=== PATIENT | female | born 1950 | race Caucasian/White ===

== ENCOUNTER → 2016-07-09 | Outpatient (CLI) | payer OTHER ==
[2016-07-09 08:17] LABS: Basophils # (A) 0.1 k/uL (0-0.2); Basophils % (A) 1 %; CH 30.6; CHCM 32.9; Eosinophils # (A) 0.1 k/uL (0-0.7); Eosinophils % (A) 2 %; HCT 42.8 % (34.0-46.0); HDW 2.23; HGB 13.8 gm/dL (11.4-16.0); Luc # (Auto) 0.12; Luc % (Auto) 2; Lymphocytes # (A) 1.4 k/uL (1.0-4.8); Lymphocytes % (A) 21 %; MCH 30.1 pg (25.0-35.0); MCHC 32.2 g/dL (31.0-37.0); MCV 93.4 fL (80.0-100.0); Mean Platelet Volume 7.7; Monocytes # (A) 0.3 k/uL (0-1.0); Monocytes % (A) 5 %; Neutrophils # (A) 4.6 k/uL (1.3-7.7); Neutrophils % (A) 69 %; RBC 4.58 m/uL (3.80-5.40); RDW 12.3 % (11.5-15.5); WBC 6.7 k/uL (3.8-10.6); WBC (Perox) 6.53
[2016-07-09 08:36] LABS: ALT 30 U/L (9-52); AST 24 U/L (14-36); Alkaline Phosphatase 41 U/L (38-126); Anion Gap 12 mmol/L; Blood Urea Nitrogen 15 mg/dL (7-17); Carbon Dioxide 28 mmol/L (22-30); Chloride 102 mmol/L (98-107); Cholesterol 159 mg/dL (<200); Glucose 91 mg/dL (74-99); HDL Cholesterol 63 mg/dL (40-60); Non-African American GFR(MDRD) 53 (>60 ml/min/1.73 sqM); Potassium 4.9 mmol/L (3.5-5.1); Sodium 142 mmol/L (137-145); Total Bilirubin 0.6 mg/dL (0.2-1.3); Total Protein 7.2 g/dL (6.3-8.2); Triglycerides 94 mg/dL (<150)
[2016-07-09 09:24] LABS: Hemoglobin A1C 5.5 % (4.2-6.1)
== END | disposition home or self-care (01) ==
LOC: LABWHC1 07:45
PROVIDERS: ATTEND Internal Medicine Geriatric Medicine
DX: Z00.00 Encounter for general adult medical examination without abnormal findings (principal)
CPT/HCPCS: 36415; 80053; 80061; 82306; 83036; 84439; 84443; 85025

== ENCOUNTER → 2016-08-01 | Outpatient (CLI) | payer OTHER ==
--- NOTE | 2016-08-02 07:51 | MM ---
Reason for exam: screening (asymptomatic). Last mammogram was performed 1 year and 2 months ago. History: Patient is postmenopausal. Benign excisional biopsy of the right breast, 1969. Taking estrogen for 4 years 7 months beginning at age 52. Physical Findings: A clinical breast exam by your physician is recommended on an annual basis and results should be correlated with mammographic findings. MG Screening Mammo w CAD Bilateral CC and MLO view(s) were taken. Prior study comparison: June 06, 2015, bilateral MG screening mammo w CAD. April 08, 2014, bilateral MG screening mammo w CAD. The breast tissue is heterogeneously dense. This may lower the sensitivity of mammography. No significant changes when compared with prior studies. ASSESSMENT: Benign, BI-RAD 2 RECOMMENDATION: Routine screening mammogram of both breasts in 1 year.
== END | disposition home or self-care (01) ==
LOC: RADMAMWWP 10:14
PROVIDERS: ATTEND Internal Medicine Geriatric Medicine
DX: Z12.31 Encounter for screening mammogram for malignant neoplasm of breast (principal)

== ENCOUNTER → 2017-02-12 | Outpatient (CLI) | payer OTHER ==
--- NOTE | 2017-02-12 15:22 | US ---
EXAMINATION TYPE: US carotid duplex BILAT DATE OF EXAM: 02/12/2017 COMPARISON: NONE CLINICAL HISTORY: I34.0 Nonrheumatic mitral regurgitation, I65.23 Oc. EXAM MEASUREMENTS: RIGHT: Peak Systolic Velocity (PSV) cm/sec ----- Right CCA: 56.3 ----- Right ICA: 101.8 ----- Right ECA: 90.4 ICA/CCA ratio: 1.8 RIGHT: End Diastole cm/sec ----- Right CCA: 17.2 ----- Right ICA: 26.0 ----- Right ECA: 7.1 LEFT: Peak Systolic Velocity (PSV) cm/sec ----- Left CCA: 57.9 ----- Left ICA: 90.4 ----- Left ECA: 70.2 ICA/CCA ratio: 1.6 LEFT: End Diastole cm/sec ----- Left CCA: 13.9 ----- Left ICA: 29.8 ----- Left ECA: 7.1 VERTEBRALS (direction of flow): Right Vertebral: Antegrade Left Vertebral: Antegrade Mild atherosclerotic changes at bilateral bulbs Normal (no stenosis)=ICA PSV < 125 cm/s: ratio < 2.0: ICA EDV<40 cm/s. IMPRESSION: 1. Bilateral atherosclerotic changes with no significant hemodynamic stenosis.
--- NOTE | 2017-02-13 11:11 | ECHOF ---
Referral Reason:I34.0 Nonrheumatic mitral regurgitation, I65.23 Oc MEASUREMENTS -------- HEIGHT: 167.6 cm WEIGHT: 49.9 kg BP: 161/71 IVSd: 1.0 cm (0.6 - 1.1) LVIDd: 3.3 cm (3.9 - 5.3) LVPWd: 1.2 cm (0.6 - 1.1) IVSs: 1.4 cm LVIDs: 1.6 cm LVPWs: 1.4 cm Ao Diam: 2.6 cm (2.0 - 3.7) AV Cusp: 1.8 cm (1.5 - 2.6) LA Diam: 2.5 cm (2.7 - 3.8) MV EXCURSION: 20.868 mm (> 18.000) MV EF SLOPE: 116 mm/s (70 - 150) EPSS: 0.2 cm MV E Gwyn: 1.20 m/s MV DecT: 218 ms MV A Gwyn: 0.71 m/s MV E/A Ratio: 1.69 RAP: 5.00 mmHg RVSP: 31.05 mmHg FINDINGS -------- Sinus rhythm. This was a technically good study. There is borderline concentric left ventricular hypertrophy. Overall left ventricular systolic function is normal with, an EF between 55 - 60 %. The right ventricle is normal in size and function. The left atrium is normal in size. The right atrium is normal in size. The aortic valve is trileaflet, and appears structurally normal. No aortic stenosis or regurgitation. The mitral valve leaflets are mildly thickened. There is trace mitral regurgitation. Mild tricuspid regurgitation present. The right ventricular systolic pressure, as measured by Doppler, is 31.05mmHg. Pulmonic valve appears structurally normal. The aortic root size is normal. The pericardium is normal. CONCLUSIONS -------- 1. Sinus rhythm. 2. There is trace mitral regurgitation. 3. Mild tricuspid regurgitation present. 4. The right ventricular systolic pressure, as measured by Doppler, is 31.05mmHg. 5. Pulmonic valve appears structurally normal. 6. The aortic root size is normal. 7. The pericardium is normal. 8. This was a technically good study. 9. There is borderline concentric left ventricular hypertrophy. 10. Overall left ventricular systolic function is normal with, an EF between 55 - 60 %. 11. The right ventricle is normal in size and function. 12. The left atrium is normal in size. 13. The right atrium is normal in size. 14. The aortic valve is trileaflet, and appears structurally normal. No aortic stenosis or regurgitation. 15. The mitral valve leaflets are mildly thickened. AGED OR DISABLED CARER: Zonia Lewis RDCS
== END | disposition home or self-care (01) ==
LOC: RADECHMAIN 14:09
PROVIDERS: ATTEND Internal Medicine Geriatric Medicine
DX: I65.23 Occlusion and stenosis of bilateral carotid arteries (principal); I08.1 Rheumatic disorders of both mitral and tricuspid valves
CPT/HCPCS: 93306; 93880

== ENCOUNTER → 2017-07-31 | Outpatient (CLI) | payer MEDICARE, OTHER ==
[2017-07-31 08:43] LABS: Basophils # (A) 0.1 k/uL (0-0.2); Basophils % (A) 1 %; Eosinophils # (A) 0.2 k/uL (0-0.7); Eosinophils % (A) 3 %; HCT 43.1 % (34.0-46.0); HGB 13.8 gm/dL (11.4-16.0); Lymphocytes # (A) 1.7 k/uL (1.0-4.8); Lymphocytes % (A) 25 %; MCH 30.3 pg (25.0-35.0); MCV 94.6 fL (80.0-100.0); Monocytes # (A) 0.3 k/uL (0-1.0); Monocytes % (A) 5 %; Neutrophils # (A) 4.3 k/uL (1.3-7.7); Neutrophils % (A) 64 %; Platelet Count 256 k/uL (150-450); RBC 4.55 m/uL (3.80-5.40); WBC 6.7 k/uL (3.8-10.6)
[2017-07-31 09:14] LABS: Albumin 4.2 g/dL (3.5-5.0); Potassium 4.9 mmol/L (3.5-5.1); Total Bilirubin 0.6 mg/dL (0.2-1.3); Total Protein 6.9 g/dL (6.3-8.2)
[2017-07-31 09:29] LABS: T4, Free (Free Thyroxine) 0.99 ng/dL (0.78-2.19)
[2017-07-31 18:12] LABS: Hemoglobin A1C 5.8 % (4.0-6.0)
== END | disposition home or self-care (01) ==
LOC: LABWHC1 08:11
PROVIDERS: ATTEND Internal Medicine Geriatric Medicine
DX: I10 Essential (primary) hypertension (principal); E78.00 Pure hypercholesterolemia, unspecified; R73.09 Other abnormal glucose
CPT/HCPCS: 36415; 80053; 80061; 83036; 84439; 84443; 85025

== ENCOUNTER → 2017-08-13 | Outpatient (CLI) | payer MEDICARE, OTHER ==
--- NOTE | 2017-08-14 10:50 | US ---
EXAMINATION TYPE: US kidneys/renal and bladder DATE OF EXAM: 08/13/2017 COMPARISON: NONE CLINICAL HISTORY: 67-year-old female elevated C reactive protein, R79.82. Hx of renal cysts. Abnorma l labs Technique: Multiple sonographic images of the kidneys and bladder are obtained. FINDINGS: Right Kidney: 8.8 x 4.5 x 2.8 cm without hydronephrosis. There is a 1.5 cm lower pole cyst. Low-leve l internal echoes are felt to be artifactual. Left Kidney: 9.5 x 3.7 x 4.7 cm without hydronephrosis. Some bowel gas shadowing limiting assessment of the upper pole. Urine distended bladder shows no gross abnormality. Bilateral Jets not seen IMPRESSION: 1. No hydronephrosis. 2. Benign 1.5 cm right lower pole renal cyst. 3. Neither ureteral jet is seen during the course of the exam. This may reflect underlying chronic ki dney disease.
== END | disposition home or self-care (01) ==
LOC: RADUSWWP 15:40
PROVIDERS: ATTEND Internal Medicine Geriatric Medicine
DX: N28.1 Cyst of kidney, acquired (principal)
CPT/HCPCS: 76770

== ENCOUNTER → 2017-08-27 | Outpatient (CLI) | payer MEDICARE, OTHER ==
--- NOTE | 2017-08-28 09:30 | MM ---
Reason for exam: screening (asymptomatic). Last mammogram was performed 1 year and 1 month ago. History: Patient is postmenopausal. Benign excisional biopsy of the right breast, 1969. Took estrogen for 4 years 7 months beginning at age 52. Physical Findings: A clinical breast exam by your physician is recommended on an annual basis and results should be correlated with mammographic findings. MG Screening Mammo w CAD Bilateral CC and MLO view(s) were taken. Prior study comparison: August 01, 2016, bilateral MG screening mammo w CAD. June 06, 2015, bilateral MG screening mammo w CAD. The breast tissue is extremely dense which could obscure a lesion on mammography. No significant changes when compared with prior studies. ASSESSMENT: Benign, BI-RAD 2 RECOMMENDATION: Routine screening mammogram of both breasts in 1 year.
== END | disposition home or self-care (01) ==
LOC: RADMAMWWP 08:39
PROVIDERS: ATTEND Internal Medicine Geriatric Medicine
DX: Z12.31 Encounter for screening mammogram for malignant neoplasm of breast (principal)
CPT/HCPCS: 77067

== ENCOUNTER → 2018-01-14 | Outpatient (CLI) | payer MEDICARE, OTHER ==
[2018-01-14 08:50] LABS: Basophils # (A) 0.1 k/uL (0-0.2); Basophils % (A) 1 %; Eosinophils # (A) 0.1 k/uL (0-0.7); Eosinophils % (A) 2 %; HCT 39.9 % (34.0-46.0); HGB 13.4 gm/dL (11.4-16.0); Lymphocytes # (A) 1.4 k/uL (1.0-4.8); Lymphocytes % (A) 27 %; MCH 30.2 pg (25.0-35.0); MCHC 33.7 g/dL (31.0-37.0); MCV 89.8 fL (80.0-100.0); Mean Platelet Volume 6.9; Monocytes # (A) 0.3 k/uL (0-1.0); Monocytes % (A) 6 %; Neutrophils # (A) 3.1 k/uL (1.3-7.7); Neutrophils % (A) 61 %; Platelet Count 222 k/uL (150-450); RBC 4.45 m/uL (3.80-5.40); RDW 12.3 % (11.5-15.5)
[2018-01-14 09:12] LABS: T4, Free (Free Thyroxine) 1.08 ng/dL (0.78-2.19)
[2018-01-14 16:03] LABS: Iron Saturation 37.04 (12.00-45.00)
[2018-01-14 16:12] LABS: Vitamin D 25 Hydroxy 35.2 ng/mL (30.0-100.0)
[2018-01-14 18:46] LABS: Hemoglobin A1C 5.7 % (4.0-6.0)
== END | disposition home or self-care (01) ==
LOC: LABWHC1 08:18
PROVIDERS: ATTEND Internal Medicine Geriatric Medicine
DX: E55.9 Vitamin D deficiency, unspecified (principal); D50.9 Iron deficiency anemia, unspecified; E78.00 Pure hypercholesterolemia, unspecified; R73.09 Other abnormal glucose; R00.1 Bradycardia, unspecified
CPT/HCPCS: 36415; 80061; 82306; 83036; 83540; 83550; 84439; 84443; 85025

== ENCOUNTER → 2018-01-21 | Outpatient (CLI) | payer MEDICARE, OTHER ==
[2018-01-21 12:41] LABS: Albumin 4.4 g/dL (3.5-5.0); Calcium 10.2 mg/dL (8.4-10.2); Potassium 4.3 mmol/L (3.5-5.1); Total Bilirubin 0.5 mg/dL (0.2-1.3); Total Protein 6.9 g/dL (6.3-8.2)
== END | disposition home or self-care (01) ==
LOC: LABWHC1 11:21
PROVIDERS: ATTEND Nurse Practitioner Family
DX: I10 Essential (primary) hypertension (principal)
CPT/HCPCS: 36415; 80053

== ENCOUNTER → 2018-07-20 | Outpatient (CLI) | payer MEDICARE, OTHER ==
--- NOTE | 2018-07-20 14:34 | US ---
EXAMINATION TYPE: US abdomen complete DATE OF EXAM: 07/20/2018 COMPARISON: US 2017, CT 2011 CLINICAL HISTORY: N28.1 Cyst of kidney, acquired. Follow up renal cyst, history of cholecystectomy, p atient not NPO EXAM MEASUREMENTS: Liver Length: 11.9 cm Gallbladder Wall: surgically absent CBD: 0.4 cm Spleen: 7.6 cm Right Kidney: 9.1 x 2.8 x 3.9 cm Left Kidney: 9.6 x 4.7 x 4.0 cm Pancreas: wnl Liver: 0.6 x 0.6 x 0.5cm hyperechoic lesion right lobe Gallbladder: surgically absent Evidence for sonographic Sewell's sign: no CBD: wnl Spleen: wnl Right Kidney: 1.5 x 1.2 x 1.5cm cyst inferior pole Left Kidney: wnl Upper IVC: wnl Abd Aorta: atherosclerotic changes The liver is homogenous. The intrahepatic portion of the IVC and proximal abdominal aorta are within normal limits. Common bile duct is unremarkable. The visualized portions of the pancreas are homoge nous. The spleen is unremarkable. Kidneys are symmetric and free of hydronephrosis. No renal lesio ns are seen. IMPRESSION: 1. No distinct abnormality appreciated.
== END | disposition home or self-care (01) ==
LOC: RADUSWWP 12:41
PROVIDERS: ATTEND Internal Medicine Geriatric Medicine
DX: N28.1 Cyst of kidney, acquired (principal)
CPT/HCPCS: 76700

== ENCOUNTER → 2018-09-01 | Outpatient (CLI) | payer MEDICARE, OTHER ==
--- NOTE | 2018-09-01 14:59 | XR ---
EXAMINATION TYPE: XR chest 2V DATE OF EXAM: 09/01/2018 COMPARISON: NONE HISTORY: Chest pain TECHNIQUE: Frontal and lateral views of the chest are obtained. FINDINGS: There is no focal air space opacity, pleural effusion, or pneumothorax seen. The cardiac silhouette size is within normal limits. The osseous structures are intact. Prominent lung volumes are suggestive of underlying COPD. Surgical clips are present in the right upper quadrant. There is m ild spinal curvature. Biapical pleural thickening is noted. The aorta is dense. IMPRESSION: No acute cardiopulmonary process.
== END | disposition home or self-care (01) ==
LOC: RADXRMAIN 13:55
PROVIDERS: ATTEND Nurse Practitioner Family
DX: R07.9 Chest pain, unspecified (principal)
CPT/HCPCS: 71046

== ENCOUNTER → 2018-09-02 | Outpatient (CLI) | payer MEDICARE, OTHER ==
--- NOTE | 2018-09-02 15:00 | MM ---
Reason for exam: screening (asymptomatic). Last mammogram was performed 1 year ago. History: Patient is postmenopausal. Benign excisional biopsy of the right breast, 1969. Took estrogen for 4 years 7 months beginning at age 52. Physical Findings: A clinical breast exam by your physician is recommended on an annual basis and results should be correlated with mammographic findings. MG Screening Mammo w CAD Bilateral CC and MLO view(s) were taken. Prior study comparison: August 27, 2017, bilateral MG screening mammo w CAD. August 01, 2016, bilateral MG screening mammo w CAD. The breast tissue is extremely dense which could obscure a lesion on mammography. There are benign appearing round vascular calcifications bilaterally. There is no discrete abnormality. ASSESSMENT: Benign, BI-RAD 2 RECOMMENDATION: Routine screening mammogram of both breasts in 1 year.
== END | disposition home or self-care (01) ==
LOC: RADMAMWWP 10:56
PROVIDERS: ATTEND Internal Medicine Geriatric Medicine
DX: Z12.31 Encounter for screening mammogram for malignant neoplasm of breast (principal)
CPT/HCPCS: 77067

== ENCOUNTER → 2018-09-15 | Outpatient (CLI) | payer MEDICARE, OTHER | END | disposition home or self-care (01) | LOC: RADNMMAIN 08:48 | PROVIDERS: ATTEND Internal Medicine Geriatric Medicine | DX: Z53.9 Procedure and treatment not carried out, unspecified reason (principal) ==

== ENCOUNTER → 2018-09-28 | Outpatient (CLI) | payer MEDICARE, OTHER ==
--- NOTE | 2018-09-28 13:28 | ECHOS ---
STRESS ECHOCARDIOGRAM DATE OF SERVICE: 09/28/2018 INDICATIONS: Chest discomfort. MEDICATIONS: BASELINE HEART RATE: 81 BASELINE BLOOD PRESSURE: 159/61 MAXIMUM HEART RATE: 148 MAXIMUM BLOOD PRESSURE: 214/78 85% MPHR: 131 100% MPHR: 154 METS: 6.6 MAXIMUM STAGE REACHED: II TOTAL EXERCISE TIME: 4 minutes CLINICAL INFORMATION: STRESS DATA: Pretesting physical examination showed a heart rate of 81, pressure is 159/61 mmHg. Baseline EKG showed sinus mechanism. The patient exercised on the treadmill according to Mickey protocol for a total of 4 minutes and achieved 6.6 METs. The max heart rate was 148, which is about 96% of maximum predicted heart rate. Maximum blood pressure was was 214/78 mmHg. Clinically the patient did not have any symptoms of chest pain or discomfort and the EKG did not show any significant ST or T- wave abnormalities concerning for ischemia. ECHOCARDIOGRAM IMAGES: On echocardiogram images from parasternal long axis view, parasternal short axis view, apical 4-chamber and apical 2 chamber view were obtained as the baseline images, at the peak of the heart rate as well as on recovery and the echocardiogram images showed good augmentation in the left ventricular systolic function without any evidence of wall motion abnormalities concerning for ischemia. CONCLUSION: 1. Average exercise tolerance. 2. Normal EKG in response to exercise. 3. Normal echocardiogram in response to exercise. 4. Essentially normal stress echocardiogram for the patient. MMODL / IJN: [id number] /
== END | disposition home or self-care (01) ==
LOC: RADNMMAIN 08:40
PROVIDERS: ATTEND Internal Medicine Geriatric Medicine
DX: R07.9 Chest pain, unspecified (principal)
CPT/HCPCS: 93351

== ENCOUNTER → 2019-01-22 | Outpatient (CLI) | payer MEDICARE, OTHER ==
[2019-01-22 10:09] LABS: Basophils # (A) 0.1 k/uL (0-0.2); Basophils % (A) 1 %; Eosinophils # (A) 0.1 k/uL (0-0.7); Eosinophils % (A) 1 %; HCT 42.6 % (34.0-46.0); HGB 13.7 gm/dL (11.4-16.0); Lymphocytes # (A) 1.6 k/uL (1.0-4.8); Lymphocytes % (A) 21 %; MCH 30.2 pg (25.0-35.0); MCHC 32.1 g/dL (31.0-37.0); MCV 94.1 fL (80.0-100.0); Mean Platelet Volume 6.8; Monocytes # (A) 0.4 k/uL (0-1.0); Monocytes % (A) 5 %; Neutrophils # (A) 5.1 k/uL (1.3-7.7); Neutrophils % (A) 69 %; Platelet Count 257 k/uL (150-450); RBC 4.53 m/uL (3.80-5.40); RDW 12.2 % (11.5-15.5); WBC 7.5 k/uL (3.8-10.6)
[2019-01-22 10:27] LABS: Albumin 4.5 g/dL (3.5-5.0); Calcium 10.2 mg/dL (8.4-10.2); Potassium 5.6 mmol/L (3.5-5.1); Total Bilirubin 0.8 mg/dL (0.2-1.3); Total Protein 7.4 g/dL (6.3-8.2)
--- NOTE | 2019-01-22 11:11 | BD ---
EXAMINATION TYPE: Axial Bone Density DATE OF EXAM: 01/22/2019 COMPARISON: 09/11/2001 CLINICAL HISTORY: M 81.0 Height: 64.5 IN Weight: 110 LBS FRAX RISK QUESTIONS: RISK FACTORS HISTORY OF: History of Wrist Fracture: YES LEFT When: AGE 38 Family History of Osteoporosis: YES MOTHER Active: YES Postmenopausal woman: YES TOTAL HYST AGE 52 Take estrogen and/or progesterone medications: NOT NOW How long: AGE 50-54 MEDICATIONS: Additional Medications: BABY ASPIRIN, MULTI VIT, BLOOD PRESSURE, CHOLESTEROL, EXAM MEASUREMENTS: Bone mineral densitometry was performed using the [employer] System. Bone mineral density as measured about the Lumbar spine is: ----- L1-L4(G/cm2): 1.132 T Score Values are as follows: ----- L2: -0.6 ----- L3: 0.5 ----- L4: -0.6 ----- L1-L4: -0.4 Bone mineral density has: Decreased -8.6% since study of: 09/11/2001 Bone mineral density about the R hip (g/cm2): 0.657 Bone mineral density about the L hip (g/cm2): 0.730 T Score values are as follows: -----R Neck: -2.7 -----L Neck: -2.2 -----R Total: -2.9 -----L Total: -2.4 Bone mineral density has: Decreased -24.0% since study of: 09/11/2001 IMPRESSION: Osteoporosis (T Score less than -2.5). There is increased fracture risk and therapy is usually indicated based on age. Re-Screen 1-2 years. NOTE: T-SCORE=SD OF THE YOUNG ADULT MEAN.
[2019-01-22 18:25] LABS: Iron Saturation 26.95 (12.00-45.00)
== END | disposition home or self-care (01) ==
LOC: RADBDWWP 09:34
PROVIDERS: ATTEND Internal Medicine Geriatric Medicine
DX: M81.0 Age-related osteoporosis without current pathological fracture (principal); D50.9 Iron deficiency anemia, unspecified; E78.2 Mixed hyperlipidemia; Z00.00 Encounter for general adult medical examination without abnormal findings
CPT/HCPCS: 77080; 80053; 80061; 83540; 83550; 85025

== ENCOUNTER 2019-05-13 19:02 | Emergency (ER) | payer MEDICARE, OTHER ==
[2019-05-13 19:16] VITALS: RESP 18; TEMP 97.4
[2019-05-13] MEDS ORDERED: MECLIZINE 12.5 MG TAB PO STA (19:38)
[2019-05-13] MEDS ORDERED: ONDANSETRON 4 MG/2 ML VIAL IVP STA (19:38)
[2019-05-13] MEDS ORDERED: SODIUM CHLORIDE 0.9% 1,000 ML IV STA (19:38)
[2019-05-13 19:46] LABS: Basophils % (A) 0 %; Eosinophils # (A) 0.1 k/uL (0-0.7); Eosinophils % (A) 1 %; HGB 14.7 gm/dL (11.4-16.0); Lymphocytes # (A) 1.5 k/uL (1.0-4.8); Lymphocytes % (A) 12 %; MCH 31.5 pg (25.0-35.0); MCHC 34.2 g/dL (31.0-37.0); Mean Platelet Volume 6.2; Monocytes # (A) 0.6 k/uL (0-1.0); Monocytes % (A) 5 %; Neutrophils # (A) 10.2 k/uL (1.3-7.7); Neutrophils % (A) 81 %; Platelet Count 230 k/uL (150-450); RBC 4.68 m/uL (3.80-5.40); RDW 11.8 % (11.5-15.5); WBC 12.6 k/uL (3.8-10.6)
[2019-05-13 20:00] LABS: Albumin 5.1 g/dL (3.5-5.0); Total Protein 8.2 g/dL (6.3-8.2)
[2019-05-13 20:01] LABS: Calcium 10.1 mg/dL (8.4-10.2); Magnesium 1.8 mg/dL (1.6-2.3); Potassium 3.9 mmol/L (3.5-5.1); Total Bilirubin 0.6 mg/dL (0.2-1.3)
[2019-05-13] MEDS ORDERED: LORazepam 2 MG/ML INJ IV STA (20:01)
[2019-05-13 20:06] LABS: INR 0.9 (<1.2); Partial Thromboplastin Time 23.1 sec (22.0-30.0); Prothrombin Time 9.8 sec (9.0-12.0)
--- NOTE | 2019-05-13 20:14 | XR ---
EXAMINATION TYPE: XR chest 2V DATE OF EXAM: 05/13/2019 COMPARISON: 09/01/2018 HISTORY: Chest pain TECHNIQUE: Frontal and lateral views of the chest are obtained. FINDINGS: Heart and mediastinum are normal. Lungs are clear of infiltrate. There is no pleural effus ion. There are chest leads. Bony thorax is intact. IMPRESSION: Normal chest. No change.
--- NOTE | 2019-05-13 20:18 | ED ---
General Adult HPI - General Chief complaint: Recheck/Abnormal Lab/Rx Stated complaint: hypertension, dizzy Time Seen by Provider: 05/13/19 19:20 Source: patient Mode of arrival: wheelchair Limitations: no limitations - History of Present Illness Initial comments: 68 old female patient presents to the emergency department today with multiple complaints. Patient states his been feeling unwell today. States that, blood pressure was elevated in the 180s systolic over the 60s diastolic. Patient states with this she has been having dizziness and nausea. Patient states she is dizzy even at rest. States that the room is spinning and she feels lighthe aded. Patient states that she did see her primary care physician today, her blood pressure was improved after office. States she continued to feel unwell so she presented here for further evaluation. Patient states she has been feeling a fluttering in her chest. Denies any chest pain or abdominal pain. States she has been feeling nauseated and having dry heaves. Patient is also reporting significant stress and anxiety. Did take a Xanax earlier today without much relief. She denies numbness, tingling, weakness to her extremities. Denies headache, blurred vision, or double vision. Denies any head injury recently. Patient denies any recent rash, fever, chills, diarrhea, constipation, back pain, hematuria, dysuria, urinary urgency, urinary frequency, or any other complaints. - Related Data Previous Rx's Medication Instructions Recorded Cephalexin [Keflex] 500 mg PO BID #14 cap 05/13/19 Allergies Allergy/AdvReac Type Severity Reaction Status Date / Time levofloxacin [From Levaquin] Allergy Nausea & Verified 05/13/19 19:16 Vomiting Review of Systems ROS Statement: Those systems with pertinent positive or pertinent negative responses have been documented in the HPI. ROS Other: All systems not noted in ROS Statement are negative. Past Medical History Past Medical History: Hypertension History of Any Multi-Drug Resistant Organisms: None Reported Past Surgical History: Cholecystectomy, Hysterectomy Additional Past Surgical History / Comment(s): cyst removed from right breast at age 18 Past Psychological History: Anxiety Smoking Status: Never smoker Past Alcohol Use History: None Reported Past Drug Use History: None Reported General Exam Limitations: no limitations General appearance: alert, in no apparent distress, other (This is a well- developed, well-nourished adult female patient in no acute distress. Vital signs upon presentation are temperature 97.4F, pulse 75, respirations 18, blood pressure 160/90, pulse ox 96% on room air.) Eye exam: Present: normal appearance, PERRL, EOMI. Absent: scleral icterus, conjunctival injection, periorbital swelling ENT exam: Present: normal exam, normal oropharynx, mucous membranes moist, TM's normal bilaterally Respiratory exam: Present: normal lung sounds bilaterally. Absent: respiratory distress, wheezes, rales, rhonchi, stridor Cardiovascular Exam: Present: regular rate, normal rhythm, normal heart sounds. Absent: systolic murmur, diastolic murmur, rubs, gallop, clicks GI/Abdominal exam: Present: soft, normal bowel sounds. Absent: distended, tend erness, guarding, rebound, rigid Neurological exam: Present: alert, oriented X3, CN II-XII intact, other (Strength in all 4 extremities is 5/5.) Psychiatric exam: Present: normal affect, normal mood Skin exam: Present: warm, dry, intact, normal color. Absent: rash Course Vital Signs 05/13/19 05/13/19 05/13/19 19:11 20:14 21:00 Temperature 97.4 F L Pulse Rate 75 72 69 Respiratory 18 18 18 Rate Blood Pressure 160/90 175/73 140/85 O2 Sat by Pulse 96 99 98 Oximetry EKG Findings - EKG Comments: EKG Findings:: EKG obtained at 1940 shows normal sinus rhythm with a ventricular rate of 71, IA interval 184, QRS duration 76, QT 386, QTC 419. No evidence of ST elevation or depression. Medical Decision Making - Medical Decision Making 68 year-old female patient presents to the emergency department today for evaluation of dizziness, anxiety, and elevated blood pressure. Physical examination is unremarkable. She is neurologically intact with no focal deficits. Labs revealed urinary tract infection but no other abnormalities. Ch est x-ray and EKG unremarkable. Blood pressures were satisfactory and department. She was given IV dose of Rocephin initially discharged with Keflex. Patient does report improvement of symptoms. She is able to ambulate without difficulty. She'll be discharged to follow up with her primary care physician for recheck in 1-2 days. Return parameters were discussed in detail. She verbalizes understanding and agrees with this plan. - Lab Data Result diagrams: 05/13/19 19:28 05/13/19 19:28 Lab Results 05/13/19 05/13/19 05/13/19 Range/Units 19:28 19:28 19:28 WBC 12.6 H (3.8-10.6) k/uL RBC 4.68 (3.80-5.40) m/uL Hgb 14.7 (11.4-16.0) gm/dL Hct 43.0 (34.0-46.0) % MCV 92.0 (80.0-100.0) fL MCH 31.5 (25.0-35.0) pg MCHC 34.2 (31.0-37.0) g/dL RDW 11.8 (11.5-15.5) % Plt Count 230 (150-450) k/uL Neutrophils % 81 % Lymphocytes % 12 % Monocytes % 5 % Eosinophils % 1 % Basophils % 0 % Neutrophils # 10.2 H (1.3-7.7) k/uL Lymphocytes # 1.5 (1.0-4.8) k/uL Monocytes # 0.6 (0-1.0) k/uL Eosinophils # 0.1 (0-0.7) k/uL Basophils # 0.0 (0-0.2) k/uL PT 9.8 (9.0-12.0) sec INR 0.9 (<1.2) APTT 23.1 (22.0-30.0) sec Sodium 137 (137-145) mmol/L Potassium 3.9 (3.5-5.1) mmol/L Chloride 98 (98-107) mmol/L Carbon Dioxide 27 (22-30) mmol/L Anion Gap 12 mmol/L BUN 16 (7-17) mg/dL Creatinine 1.15 H (0.52-1.04) mg/dL Est GFR (CKD-EPI)AfAm 57 (>60 ml/min/1.73 sqM) Est GFR (CKD-EPI)NonAf 50 (>60 ml/min/1.73 sqM) Glucose 142 H (74-99) mg/dL Calcium 10.1 (8.4-10.2) mg/dL Magnesium 1.8 (1.6-2.3) mg/dL Total Bilirubin 0.6 (0.2-1.3) mg/dL AST 26 (14-36) U/L ALT 21 (9-52) U/L Alkaline Phosphatase 47 (38-126) U/L Troponin I (0.000-0.034) ng/mL Total Protein 8.2 (6.3-8.2) g/dL Albumin 5.1 H (3.5-5.0) g/dL Urine Color Urine Appearance (Clear) Urine pH (5.0-8.0) Ur Specific Guy (1.001-1.035) Urine Protein (Negative) Urine Glucose (UA) (Negative) Urine Ketones (Negative) Urine Blood (Negative) Urine Nitrite (Negative) Urine Bilirubin (Negative) Urine Urobilinogen (<2.0) mg/dL Ur Leukocyte Esterase (Negative) Urine RBC (0-5) /hpf Urine WBC (0-5) /hpf Ur Squamous Epith Cells (0-4) /hpf Urine Bacteria (None) /hpf Urine Mucus (None) /hpf 05/13/19 05/13/19 Range/Units 19:28 21:03 WBC (3.8-10.6) k/uL RBC (3.80-5.40) m/uL Hgb (11.4-16.0) gm/dL Hct (34.0-46.0) % MCV (80.0-100.0) fL MCH (25.0-35.0) pg MCHC (31.0-37.0) g/dL RDW (11.5-15.5) % Plt Count (150-450) k/uL Neutrophils % % Lymphocytes % % Monocytes % % Eosinophils % % Basophils % % Neutrophils # (1.3-7.7) k/uL Lymphocytes # (1.0-4.8) k/uL Monocytes # (0-1.0) k/uL Eosinophils # (0-0.7) k/uL Basophils # (0-0.2) k/uL PT (9.0-12.0) sec INR (<1.2) APTT (22.0-30.0) sec Sodium (137-145) mmol/L Potassium (3.5-5.1) mmol/L Chloride (98-107) mmol/L Carbon Dioxide (22-30) mmol/L Anion Gap mmol/L BUN (7-17) mg/dL Creatinine (0.52-1.04) mg/dL Est GFR (CKD-EPI)AfAm (>60 ml/min/1.73 sqM) Est GFR (CKD-EPI)NonAf (>60 ml/min/1.73 sqM) Glucose (74-99) mg/dL Calcium (8.4-10.2) mg/dL Magnesium (1.6-2.3) mg/dL Total Bilirubin (0.2-1.3) mg/dL AST (14-36) U/L ALT (9-52) U/L Alkaline Phosphatase (38-126) U/L Troponin I <0.012 (0.000-0.034) ng/mL Total Protein (6.3-8.2) g/dL Albumin (3.5-5.0) g/dL Urine Color Light Yellow Urine Appearance Clear (Clear) Urine pH 6.0 (5.0-8.0) Ur Specific Guy 1.015 (1.001-1.035) Urine Protein Negative (Negative) Urine Glucose (UA) Trace H (Negative) Urine Ketones Negative (Negative) Urine Blood Negative (Negative) Urine Nitrite Positive H (Negative) Urine Bilirubin Negative (Negative) Urine Urobilinogen <2.0 (<2.0) mg/dL Ur Leukocyte Esterase Moderate H (Negative) Urine RBC <1 (0-5) /hpf Urine WBC 47 H (0-5) /hpf Ur Squamous Epith Cells <1 (0-4) /hpf Urine Bacteria Rare H (None) /hpf Urine Mucus Rare H (None) /hpf - Radiology Data Radiology results: report reviewed, image reviewed Two-view x-ray of the chest is obtained. Report was reviewed in its entirety. Impression by Dr. Lynn shows normal chest. No change Disposition Clinical Impression: Urinary tract infection, Hypertension, Dizziness Disposition: HOME SELF-CARE Condition: Good Instructions (If sedation given, give patient instructions): Urinary Tract Infection in Women (ED), Hypertension (ED), Dizziness (ED), Anxiety (ED) Additional Instructions: Increase fluids. Complete antibiotic prescription and full. Follow-up with your primary care physician for recheck in 1-2 days. Return to the emergency de partment immediately for any new, worsening, or concerning symptoms. Prescriptions: Cephalexin [Keflex] 500 mg PO BID #14 cap Is patient prescribed a controlled substance at d/c from ED?: No Referrals: Mark Farley MD [Primary Care Provider] - 1-2 days Time of Disposition: 21:51
[2019-05-13 21:06] VITALS: BP 140/85; PULSE 69
[2019-05-13 21:24] LABS: Appearance,Urine Clear (Clear); Bacteria,Urine Rare /hpf; Bilirubin,Urine Negative (Negative); Blood,Urine Negative (Negative); Color,Urine Light Yellow; Glucose,Urine (UA) Trace (Negative); Ketones,Urine Negative (Negative); Leukocyte Esterase,Urine Moderate (Negative); Mucus,Urine Rare /hpf; Nitrite,Urine Positive (Negative); Protein,Urine Negative (Negative); RBC,Urine <1 /hpf (0-5); Specific Gravity,Urine 1.015 (1.001-1.035); Squamous Epithelial Cell,Urine <1 /hpf (0-4); Urobilinogen,Urine <2.0 mg/dL (<2.0); WBC,Urine 47 /hpf (0-5)
[2019-05-13] MEDS ORDERED: cefTRIAXone IN SWFI 1,000 MG/10 ML SYRINGE IVP STA (21:40)
== END 2019-05-13 21:59 | disposition home or self-care (01) ==
LOC: EC 19:02
DX: N39.0 Urinary tract infection, site not specified (principal); I10 Essential (primary) hypertension; R42 Dizziness and giddiness; F41.9 Anxiety disorder, unspecified; F43.9 Reaction to severe stress, unspecified; R11.2 Nausea with vomiting, unspecified; Z88.1 Allergy status to other antibiotic agents
CPT/HCPCS: 36415; 93005; 80053; 83735; 84484; 85025; 85610; 85730; 81001; 87086; 87077; 87186; 71046; 99284; 96374; 96375 ×2; J2060; J2405; J0696

== ENCOUNTER 2019-05-19 05:16 | Emergency (ER) | payer MEDICARE, OTHER ==
[2019-05-19] MEDS ORDERED: ONDANSETRON 4 MG/2 ML VIAL IVP STA (05:26)
[2019-05-19] MEDS ORDERED: SODIUM CHLORIDE 0.9% 1,000 ML IV STA (05:26)
--- NOTE | 2019-05-19 06:30 | ED ---
Nausea/Vomiting/Diarrhea HPI - General Chief complaint: Nausea/Vomiting/Diarrhea Stated complaint: Nausea,diarrhea,weak Time Seen by Provider: 05/19/19 05:26 Source: patient Mode of arrival: wheelchair Limitations: no limitations - History of Present Illness Initial comments: Elodia is a 68-year-old female who presents to the emergency department today f or evaluation of generalized weakness, nausea, vomiting and diarrhea. Patient reports she was seen and evaluated last week, she was diagnosed with a urinary tract infection she was prescribed antibiotics. Patient reports she developed nausea and vomiting the next day. She has been compliant with the antibiotics. Patient reports she also developed diarrhea which she describes as usually 3-4 watery stools every morning this seemed to resolved by noon time. They don't wake her from sleep. Associated with mild crampy abdominal discomfort. Patient reports she follow-up physician visible antibiotic. She is a seen yesterday for the first dose of antibiotic. She has not taken any of her antihypertensives. Patient reports that this morning she continued to have episodes of nonbloody nonbilious emesis and persistent nausea which prompted her come back to the emergency department. Patient reports she is feeling dehydrated and weak. She has been taking Zofran at home for the nausea with no improvement. - Related Data Home Medications Medication Instructions Recorded Confirmed Nitrofurantoin Macrocrystal 100 mg PO 05/19/19 [Nitrofurantoin] amLODIPine BESYLATE 5 mg PO DAILY 05/19/19 05/19/19 Allergies Allergy/AdvReac Type Severity Reaction Status Date / Time levofloxacin [From Levaquin] Allergy Nausea & Verified 05/13/19 19:16 Vomiting Review of Systems ROS Statement: Those systems with pertinent positive or pertinent negative responses have been documented in the HPI. ROS Other: All systems not noted in ROS Statement are negative. Past Medical History Past Medical History: Hypertension History of Any Multi-Drug Resistant Organisms: None Reported Past Surgical History: Cholecystectomy, Hysterectomy Additional Past Surgical History / Comment(s): cyst removed from right breast at age 18 Past Psychological History: Anxiety Smoking Status: Never smoker Past Alcohol Use History: None Reported Past Drug Use History: None Reported General Exam - General Exam Comments Initial Comments: Physical Exam GENERAL: Patient is well-developed and well-nourished. Appears dehydrated HENT: Normocephalic, Atraumatic. Dry mucous membranes EYES: PERRL, EOMI PULMONARY: Unlabored respirations. No audible rales rhonchi or wheezing was noted. CARDIOVASCULAR: There is a regular rate and rhythm without any murmurs gallops or rubs. ABDOMEN: Soft and nontender with normal bowel sounds. SKIN: Skin is clear with no lesions or rashes and otherwise unremarkable. : Deferred NEUROLOGIC: Patient is alert and oriented x3. Moving all extremities spontaneously MUSCULOSKELETAL: Normal extremities with adequate strength and full range of motion. No lower extremity swelling or edema. No calf tenderness. PSYCHIATRIC: Normal psychiatric evaluation. Limitations: no limitations Course Vital Signs 05/19/19 05/19/19 05/19/19 05:21 05:55 07:00 Temperature 97.7 F 97.2 F L 98.1 F Pulse Rate 67 71 Respiratory 20 18 Rate Blood Pressure 138/60 150/71 O2 Sat by Pulse 100 99 Oximetry Medical Decision Making - Medical Decision Making The patient was seen and evaluated, history is obtained from the patient Labs and imaging were ordered, resulted with no acute findings. Patient was reevaluated after IV Zofran. She reports she's feeling better after Zofran and fluids. Patient's only received approximately 150 mL of fluids. Advised her to straighten her arm to allow this IV to follow up with her. At this time I feel there is no indication for admission to the hospital. Patient will be discharged home she has Zofran at home for management. She will follow up with her primary care physician. - Lab Data Result diagrams: 05/19/19 06:22 05/19/19 06:22 Lab Results 05/19/19 05/19/19 05/19/19 Range/Units 06:10 06:22 06:22 WBC 9.2 (3.8-10.6) k/uL RBC 4.55 (3.80-5.40) m/uL Hgb 14.1 (11.4-16.0) gm/dL Hct 41.8 (34.0-46.0) % MCV 91.9 (80.0-100.0) fL MCH 31.0 (25.0-35.0) pg MCHC 33.7 (31.0-37.0) g/dL RDW 11.8 (11.5-15.5) % Plt Count 228 (150-450) k/uL Neutrophils % 88 % Lymphocytes % 8 % Monocytes % 3 % Eosinophils % 0 % Basophils % 0 % Neutrophils # 8.1 H (1.3-7.7) k/uL Lymphocytes # 0.7 L (1.0-4.8) k/uL Monocytes # 0.3 (0-1.0) k/uL Eosinophils # 0.0 (0-0.7) k/uL Basophils # 0.0 (0-0.2) k/uL Sodium 136 L (137-145) mmol/L Potassium 4.4 (3.5-5.1) mmol/L Chloride 98 (98-107) mmol/L Carbon Dioxide 27 (22-30) mmol/L Anion Gap 11 mmol/L BUN 15 (7-17) mg/dL Creatinine 1.03 (0.52-1.04) mg/dL Est GFR (CKD-EPI)AfAm 66 (>60 ml/min/1.73 sqM) Est GFR (CKD-EPI)NonAf 57 (>60 ml/min/1.73 sqM) Glucose 116 H (74-99) mg/dL Calcium 10.1 (8.4-10.2) mg/dL Total Bilirubin 0.8 (0.2-1.3) mg/dL AST 24 (14-36) U/L ALT 21 (9-52) U/L Alkaline Phosphatase 42 (38-126) U/L Total Protein 7.5 (6.3-8.2) g/dL Albumin 4.6 (3.5-5.0) g/dL C. difficile (EIA) Intrp Negative (Negative) Disposition Clinical Impression: Nausea Disposition: HOME SELF-CARE Condition: Stable Instructions (If sedation given, give patient instructions): Acute Nausea and Vomiting (ED) Is patient prescribed a controlled substance at d/c from ED?: No Referrals: Mark Farley MD [Primary Care Provider] - 1-2 days
[2019-05-19 06:48] LABS: Basophils % (A) 0 %; Eosinophils % (A) 0 %; HCT 41.8 % (34.0-46.0); HGB 14.1 gm/dL (11.4-16.0); Lymphocytes # (A) 0.7 k/uL (1.0-4.8); Lymphocytes % (A) 8 %; MCHC 33.7 g/dL (31.0-37.0); MCV 91.9 fL (80.0-100.0); Mean Platelet Volume 6.6; Monocytes # (A) 0.3 k/uL (0-1.0); Monocytes % (A) 3 %; Neutrophils # (A) 8.1 k/uL (1.3-7.7); Neutrophils % (A) 88 %; Platelet Count 228 k/uL (150-450); RBC 4.55 m/uL (3.80-5.40); RDW 11.8 % (11.5-15.5); WBC 9.2 k/uL (3.8-10.6)
--- NOTE | 2019-05-19 06:55 | XR ---
EXAMINATION TYPE: XR abdomen 2V DATE OF EXAM: 05/19/2019 CLINICAL HISTORY: Nausea, vomiting, and diarrhea. TECHNIQUE: Supine and upright views of the abdomen are obtained. COMPARISON: Abdominal x-ray from 2010. CT abdomen and pelvis November 22, 2011. FINDINGS: Gas is seen in nondistended stomach. Some paucity of bowel gas with gas noted in nondisten ded small and large bowel loops. No suspicious air fluid levels. Scattered pelvic phleboliths redemon strated. Lung bases are clear. Cholecystectomy clips are now present. Osseous structures are intact. IMPRESSION: Overall nonobstructive bowel gas pattern.
[2019-05-19 07:04] LABS: Albumin 4.6 g/dL (3.5-5.0); Calcium 10.1 mg/dL (8.4-10.2); Potassium 4.4 mmol/L (3.5-5.1); Total Bilirubin 0.8 mg/dL (0.2-1.3); Total Protein 7.5 g/dL (6.3-8.2)
[2019-05-19 07:24] VITALS: RESP 18; TEMP 98.1
[2019-05-19 07:41] VITALS: BP 169/78; PULSE 78
== END 2019-05-19 08:27 | disposition home or self-care (01) ==
LOC: EC 05:16
DX: R11.2 Nausea with vomiting, unspecified (principal); E86.0 Dehydration; I10 Essential (primary) hypertension; Z88.1 Allergy status to other antibiotic agents; Z90.49 Acquired absence of other specified parts of digestive tract
CPT/HCPCS: 36415; 80053; 85025; 87324; 74019; 96374; 96361 ×2; 99285; J2405

== ENCOUNTER → 2019-06-01 | Outpatient (CLI) | payer MEDICARE, OTHER ==
--- NOTE | 2019-06-05 16:54 | HM ---
HOLTER MONITOR REPORT 24-HOUR HOLTER MONITOR: DATE OF SERVICE: June 01, 2019 PHYSICIAN: Dr. Farley RESULTS: The patient was monitored for 24 hours. The baseline rhythm appeared to be a sinus mechanism with a minimum heart rate of 53 beats per minute, max heart rate 131 beats per minute and average heart rate of 78 beats per minute. Ventricular ectopic events were not seen. Supraventricular ectopic events were not seen. The patient did have multiple episodes of sinus tachycardia. No evidence of any sinus pause or sinus arrest. No evidence of any advanced AV block. The patient reported symptoms of heart pounding and shortness of breath and these symptoms were associated with sinus tachycardia and sinus rhythm. CONCLUSION: 1. Sinus rhythm as a baseline mechanism. 2. Rare ventricular and supraventricular ectopic events. 3. The patient did have multiple episodes of sinus tachycardia. 4. No evidence of any advanced AV block. 5. No evidence of sinus pause or sinus arrest. 6. The patient reported symptoms of heart pounding and shortness of breath and the symptoms were associated with sinus tachycardia as well as sinus rhythm. MMODL / IJN: [id number] /
== END | disposition home or self-care (01) ==
LOC: RADECHMAIN 11:56
PROVIDERS: ATTEND Internal Medicine Geriatric Medicine
DX: I49.3 Ventricular premature depolarization (principal)
CPT/HCPCS: 93225; 93226

== ENCOUNTER → 2019-07-05 | Outpatient (CLI) | payer MEDICARE, OTHER ==
--- NOTE | 2019-07-06 08:30 | US ---
EXAMINATION TYPE: US kidneys/renal and bladder DATE OF EXAM: 07/05/2019 COMPARISON: Abdominal ultrasound dated 07/20/2018 CLINICAL HISTORY: N39.0 uninary tract infection, site unspecified. EXAM MEASUREMENTS: Right Kidney: 9.3 x 3.7 x 3.4 cm Left Kidney: 9.9 x 4.2 x 4.1 cm Right Kidney: lower pole cyst measures 1.5 x 1.2 x 1.3 cm. This is seen on the abdominal ultrasound dated 07/20/2018 also appearing cystic at that time. Left Kidney: No hydronephrosis or masses seen Bladder: wnl Bilateral Jets seen: No There is no evidence for hydronephrosis at this point in time. No nephrolithiasis is seen. The urina ry bladder is anechoic. Bilateral ureteral jets are not seen. IMPRESSION: Right lower pole renal cyst. No hydronephrosis or nephrolithiasis. Urinary bladder appear s unremarkable.
== END | disposition home or self-care (01) ==
LOC: RADUSWWP 16:05
PROVIDERS: ATTEND Internal Medicine Geriatric Medicine
DX: N28.1 Cyst of kidney, acquired (principal)
CPT/HCPCS: 76770

== ENCOUNTER → 2019-07-23 | Outpatient (CLI) | payer MEDICARE, OTHER ==
[2019-07-23 08:42] LABS: Basophils # (A) 0.1 k/uL (0-0.2); Basophils % (A) 1 %; Eosinophils # (A) 0.1 k/uL (0-0.7); Eosinophils % (A) 1 %; HCT 42.8 % (34.0-46.0); Lymphocytes # (A) 1.7 k/uL (1.0-4.8); Lymphocytes % (A) 26 %; MCH 30.5 pg (25.0-35.0); MCHC 32.7 g/dL (31.0-37.0); MCV 93.3 fL (80.0-100.0); Mean Platelet Volume 7.3; Monocytes # (A) 0.3 k/uL (0-1.0); Monocytes % (A) 5 %; Neutrophils # (A) 4.2 k/uL (1.3-7.7); Neutrophils % (A) 65 %; Platelet Count 226 k/uL (150-450); RBC 4.59 m/uL (3.80-5.40); RDW 11.9 % (11.5-15.5); WBC 6.4 k/uL (3.8-10.6)
[2019-07-23 17:16] LABS: African American GFR (CKD) 67.5 (60.0-200.0); Albumin 4.5 g/dL (3.80-4.90); Albumin/Globulin Ratio 2.5 (1.60-3.17); Anion Gap 9.5 mmol/L (4.00-12.00); Calcium 9.9 mg/dL (8.7-10.3); Carbon Dioxide 25.5 mmol/L (21.6-31.8); Chol/HDL Ratio 2.48; Globulin 1.8 g/dL (1.6-3.3); Non-African American GFR(CKD) 58.2 (60.0-200.0); Total Bilirubin 0.6 mg/dL (0.2-1.2); Total Protein 6.3 g/dL (6.2-8.2)
== END | disposition home or self-care (01) ==
LOC: LABWHC1 08:03
PROVIDERS: ATTEND Internal Medicine Geriatric Medicine
DX: E78.2 Mixed hyperlipidemia (principal); I49.8 Other specified cardiac arrhythmias
CPT/HCPCS: 36415; 80053; 80061; 84443; 85025

== ENCOUNTER → 2020-02-10 | Outpatient (CLI) | payer MEDICARE, OTHER ==
[2020-02-10 10:04] LABS: Basophils # (A) 0.1 k/uL (0-0.2); Basophils % (A) 1 %; Eosinophils # (A) 0.1 k/uL (0-0.7); Eosinophils % (A) 2 %; HCT 44.2 % (34.0-46.0); HGB 14.6 gm/dL (11.4-16.0); Lymphocytes # (A) 1.4 k/uL (1.0-4.8); Lymphocytes % (A) 20 %; MCH 30.9 pg (25.0-35.0); MCHC 32.9 g/dL (31.0-37.0); Mean Platelet Volume 7.1; Monocytes # (A) 0.3 k/uL (0-1.0); Monocytes % (A) 5 %; Neutrophils # (A) 4.9 k/uL (1.3-7.7); Neutrophils % (A) 71 %; Platelet Count 235 k/uL (150-450); RBC 4.71 m/uL (3.80-5.40); RDW 11.9 % (11.5-15.5)
[2020-02-10 16:39] LABS: T4, Free (Free Thyroxine) 1.2 ng/dL (0.80-1.80)
[2020-02-10 16:53] LABS: African American GFR (CKD) 60.2 (60.0-200.0); Albumin 4.7 g/dL (3.80-4.90); Albumin/Globulin Ratio 2.14 (1.60-3.17); Anion Gap 10.2 mmol/L (4.00-12.00); BUN/Creat Ratio 15.45 Ratio (12.00-20.00); Calcium 10.2 mg/dL (8.7-10.3); Carbon Dioxide 26.8 mmol/L (21.6-31.8); Chol/HDL Ratio 2.4; Globulin 2.2 g/dL (1.6-3.3); LDL Cholesterol,Calculated 82.4 mg/dL (0.0-131.0); Non-African American GFR(CKD) 51.9 (60.0-200.0); Potassium 5.1 mmol/L (3.5-5.5); Total Bilirubin 0.8 mg/dL (0.2-1.2); Total Protein 6.9 g/dL (6.2-8.2); VLDL Calculation 12.6 mg/dL (5.00-40.00)
== END | disposition home or self-care (01) ==
LOC: LABWHC1 08:28
PROVIDERS: ATTEND Internal Medicine Geriatric Medicine
DX: G25.81 Restless legs syndrome (principal); E78.2 Mixed hyperlipidemia; F41.1 Generalized anxiety disorder
CPT/HCPCS: 36415; 80053; 80061; 84439; 84443; 85025

== ENCOUNTER → 2020-06-28 | Outpatient (CLI) | payer MEDICARE, OTHER ==
--- NOTE | 2020-06-29 15:04 | MM ---
Reason for exam: screening (asymptomatic). Last mammogram was performed 1 year and 10 months ago. History: Patient is postmenopausal. Benign excisional biopsy of the right breast, 1969. Took estrogen for 4 years 7 months beginning at age 52. Physical Findings: A clinical breast exam by your physician is recommended on an annual basis and results should be correlated with mammographic findings. MG 3D Screening Mammo W/Cad Bilateral CC and MLO view(s) were taken. Prior study comparison: September 02, 2018, bilateral MG screening mammo w CAD. August 27, 2017, bilateral MG screening mammo w CAD. The breast tissue is extremely dense which could obscure a lesion on mammography. No significant changes when compared with prior studies. ASSESSMENT: Benign, BI-RAD 2 RECOMMENDATION: Routine screening mammogram of both breasts in 1 year.
== END | disposition home or self-care (01) ==
LOC: RADMAMWWP 12:25
PROVIDERS: ATTEND Internal Medicine Geriatric Medicine
DX: Z12.31 Encounter for screening mammogram for malignant neoplasm of breast (principal)
CPT/HCPCS: 77063; 77067

== ENCOUNTER → 2020-08-29 | Outpatient (CLI) | payer MEDICARE, OTHER ==
[2020-08-29 15:29] LABS: Basophils % (A) 1.5 %; Eosinophils # (A) 0.12 X 10*3/uL (0.04-0.35); Eosinophils % (A) 1.8 %; HCT 41.2 % (37.2-46.3); HGB 13.7 g/dL (12.0-15.0); MCH 30.9 pg (27.0-32.0); MCHC 33.3 g/dL (32.0-37.0); Mean Platelet Volume 10.8 fL (9.5-12.2); Monocytes # (A) 0.43 X 10*3/uL (0.20-1.00); Monocytes % (A) 6.3 %; Neutrophils # (A) 4.42 X 10*3/uL (1.80-7.70); Neutrophils % (A) 65.1 %; Platelet Count 229 X 10*3/uL (140-440); RBC 4.43 X 10*6/uL (4.10-5.20); RDW 11.9 % (11.5-14.5); WBC 6.79 X 10*3/uL (4.50-10.00)
[2020-08-29 15:44] LABS: African American GFR (CKD) 48.8 (60.0-200.0); Albumin 4.7 g/dL (3.80-4.90); Albumin/Globulin Ratio 2.24 (1.60-3.17); Anion Gap 6.2 mmol/L (4.00-12.00); BUN/Creat Ratio 12.31 Ratio (12.00-20.00); Carbon Dioxide 28.8 mmol/L (21.6-31.8); Chol/HDL Ratio 2.68; Globulin 2.1 g/dL (1.6-3.3); LDL Cholesterol,Calculated 83.4 mg/dL (0.0-131.0); Non-African American GFR(CKD) 42.1 (60.0-200.0); Potassium 5.2 mmol/L (3.5-5.5); Total Bilirubin 0.7 mg/dL (0.2-1.2); Total Protein 6.8 g/dL (6.2-8.2); VLDL Calculation 15.6 mg/dL (5.00-40.00)
== END | disposition home or self-care (01) ==
LOC: LABWHC1 07:34
PROVIDERS: ATTEND Internal Medicine Geriatric Medicine
DX: E78.2 Mixed hyperlipidemia (principal); R79.9 Abnormal finding of blood chemistry, unspecified; N28.1 Cyst of kidney, acquired; D50.9 Iron deficiency anemia, unspecified
CPT/HCPCS: 36415; 80053; 80061; 84443; 85025

== ENCOUNTER → 2020-09-05 | Outpatient (CLI) | payer MEDICARE, OTHER ==
--- NOTE | 2020-09-05 13:43 | US ---
EXAMINATION TYPE: US kidneys/renal and bladder DATE OF EXAM: 09/05/2020 COMPARISON: NONE CLINICAL HISTORY: N28.1 Cyst of kidney, acquired. EXAM MEASUREMENTS: Right Kidney: 9.8 Xx 2.5 x 4.9 cm Left Kidney: 9.7 x 4.3 x 4.7 cm Right Kidney: Simple appearing cyst measuring 1.6 x 1.4 x 1.6cm Left Kidney: No hydronephrosis or masses seen Bladder: wnl IMPRESSION: 1. Right renal cyst
== END ==
LOC: RADUSWWP 12:29
PROVIDERS: ATTEND Internal Medicine Geriatric Medicine
DX: N28.1 Cyst of kidney, acquired (principal)
CPT/HCPCS: 76770

== ENCOUNTER 2020-10-14 10:25 | Observation (INO) | payer MEDICARE, OTHER ==
[2020-10-14] MEDS ORDERED: ASPIRIN 81 MG PO STA ×2 (10:42→12:29)
[2020-10-14] MEDS ORDERED: NITROGLYCERIN OINT 1 INCH/GM PACKET TOPICAL STA (10:42)
--- NOTE | 2020-10-14 10:47 | ED ---
General Adult HPI - General Chief complaint: Chest Pain Stated complaint: Chest discomfort Time Seen by Provider: 10/14/20 10:32 Source: patient, RN notes reviewed Mode of arrival: wheelchair Limitations: no limitations - History of Present Illness Initial comments: Patient is a pleasant 70-year-old female presenting to the emergency Department with complaints of chest discomfort. Symptoms have been waxing and waning over the past 3 days. Discomfort is resolved at this time. Discomfort feels like an ache without radiation. Patient does have some associated dyspnea and nausea. No vomiting. Symptoms are not exertional. No history of similar symptoms previously. Last known stress test was approximately over one year ago - Related Data Home Medications Medication Instructions Recorded Confirmed ALPRAZolam [Xanax] 0.125 - 0.25 mg PO BID PRN 10/14/20 10/14/20 Aspirin EC [Ecotrin Low Dose] 81 mg PO DAILY 10/14/20 10/14/20 Bisoprolol-Hctz 2.5-6.25 mg [Ziac 1 tab PO DAILY 10/14/20 10/14/20 2.5-6.25 MG] Cetirizine HCl [Zyrtec] 10 mg PO DAILY PRN 10/14/20 10/14/20 Multivitamins, Thera [Multivitamin 1 tab PO DAILY 10/14/20 10/14/20 (formulary)] Simvastatin [Zocor] 20 mg PO HS 10/14/20 10/14/20 Allergies Allergy/AdvReac Type Severity Reaction Status Date / Time levofloxacin [From Levaquin] Allergy Nausea & Verified 10/14/20 11:23 Vomiting Review of Systems ROS Statement: Those systems with pertinent positive or pertinent negative responses have been documented in the HPI. ROS Other: All systems not noted in ROS Statement are negative. Constitutional: Denies: fever Eyes: Denies: eye pain ENT: Denies: ear pain Respiratory: Reports: as per HPI. Denies: cough Cardiovascular: Reports: as per HPI, chest pain Endocrine: Denies: fatigue Gastrointestinal: Denies: abdominal pain Genitourinary: Denies: dysuria Musculoskeletal: Denies: back pain Skin: Denies: rash Neurological: Denies: weakness Past Medical History Past Medical History: Hyperlipidemia, Hypertension History of Any Multi-Drug Resistant Organisms: None Reported Past Surgical History: Cholecystectomy, Hysterectomy Additional Past Surgical History / Comment(s): cyst removed from right breast at age 18 Past Psychological History: Anxiety Smoking Status: Never smoker Past Alcohol Use History: None Reported Past Drug Use History: None Reported General Exam Limitations: no limitations General appearance: alert, in no apparent distress Head exam: Present: normocephalic Eye exam: Present: normal appearance Neck exam: Present: normal inspection Respiratory exam: Present: normal lung sounds bilaterally. Absent: chest wall tenderness Cardiovascular Exam: Present: regular rate, normal rhythm Expanded Peripheral pulses: 2+: Radial (R), Radial (L), Dorsalis Pedis (R), Dorsalis Pedis (L) GI/Abdominal exam: Present: soft. Absent: tenderness Extremities exam: Present: normal inspection Neurological exam: Present: alert Psychiatric exam: Present: normal affect, normal mood Skin exam: Present: normal color Course Vital Signs 10/14/20 10:27 Temperature 97.9 F Pulse Rate 76 Respiratory 18 Rate Blood Pressure 193/81 O2 Sat by Pulse 99 Oximetry EKG Findings - EKG Comments: EKG Findings:: Normal sinus rhythm with a rate of 72. [place] 180. QRS 76. QT 370. QTc 405. Right axis. Normal QRS. No acute ST change. Medical Decision Making - Medical Decision Making Patient reevaluated and resting comfortably in bed. Patient updated on results and plan. Case was discussed in detail with Dr. Farley who will admit his patient. - Lab Data Result diagrams: 10/14/20 10:54 10/14/20 10:54 Lab Results 10/14/20 10/14/20 10/14/20 Range/Units 10:54 10:54 10:54 WBC 8.1 (3.8-10.6) k/uL RBC 4.80 (3.80-5.40) m/uL Hgb 14.3 (11.4-16.0) gm/dL Hct 43.2 (34.0-46.0) % MCV 90.0 (80.0-100.0) fL MCH 29.8 (25.0-35.0) pg MCHC 33.1 (31.0-37.0) g/dL RDW 12.0 (11.5-15.5) % Plt Count 227 (150-450) k/uL MPV 7.2 Neutrophils % 84 % Lymphocytes % 11 % Monocytes % 2 % Eosinophils % 1 % Basophils % 1 % Neutrophils # 6.8 (1.3-7.7) k/uL Lymphocytes # 0.9 L (1.0-4.8) k/uL Monocytes # 0.2 (0-1.0) k/uL Eosinophils # 0.1 (0-0.7) k/uL Basophils # 0.1 (0-0.2) k/uL PT 10.6 (9.0-12.0) sec INR 1.0 (<1.2) APTT 23.7 (22.0-30.0) sec D-Dimer 0.33 (<0.60) mg/L FEU Sodium 129 L (137-145) mmol/L Potassium 4.4 (3.5-5.1) mmol/L Chloride 95 L (98-107) mmol/L Carbon Dioxide 26 (22-30) mmol/L Anion Gap 8 mmol/L BUN 13 (7-17) mg/dL Creatinine 0.99 (0.52-1.04) mg/dL Est GFR (CKD-EPI)AfAm 68 (>60 ml/min/1.73 sqM) Est GFR (CKD-EPI)NonAf 59 (>60 ml/min/1.73 sqM) Glucose 137 H (74-99) mg/dL Calcium 9.9 (8.4-10.2) mg/dL Magnesium 1.7 (1.6-2.3) mg/dL Total Bilirubin 0.8 (0.2-1.3) mg/dL AST 31 (14-36) U/L ALT 18 (4-34) U/L Alkaline Phosphatase 45 (38-126) U/L Troponin I (0.000-0.034) ng/mL NT-Pro-B Natriuret Pep pg/mL Total Protein 7.7 (6.3-8.2) g/dL Albumin 4.8 (3.5-5.0) g/dL 10/14/20 10/14/20 Range/Units 10:54 10:54 WBC (3.8-10.6) k/uL RBC (3.80-5.40) m/uL Hgb (11.4-16.0) gm/dL Hct (34.0-46.0) % MCV (80.0-100.0) fL MCH (25.0-35.0) pg MCHC (31.0-37.0) g/dL RDW (11.5-15.5) % Plt Count (150-450) k/uL MPV Neutrophils % % Lymphocytes % % Monocytes % % Eosinophils % % Basophils % % Neutrophils # (1.3-7.7) k/uL Lymphocytes # (1.0-4.8) k/uL Monocytes # (0-1.0) k/uL Eosinophils # (0-0.7) k/uL Basophils # (0-0.2) k/uL PT (9.0-12.0) sec INR (<1.2) APTT (22.0-30.0) sec D-Dimer (<0.60) mg/L FEU Sodium (137-145) mmol/L Potassium (3.5-5.1) mmol/L Chloride (98-107) mmol/L Carbon Dioxide (22-30) mmol/L Anion Gap mmol/L BUN (7-17) mg/dL Creatinine (0.52-1.04) mg/dL Est GFR (CKD-EPI)AfAm (>60 ml/min/1.73 sqM) Est GFR (CKD-EPI)NonAf (>60 ml/min/1.73 sqM) Glucose (74-99) mg/dL Calcium (8.4-10.2) mg/dL Magnesium (1.6-2.3) mg/dL Total Bilirubin (0.2-1.3) mg/dL AST (14-36) U/L ALT (4-34) U/L Alkaline Phosphatase (38-126) U/L Troponin I <0.012 (0.000-0.034) ng/mL NT-Pro-B Natriuret Pep 337 pg/mL Total Protein (6.3-8.2) g/dL Albumin (3.5-5.0) g/dL - Radiology Data Radiology results: image reviewed (Chest x-ray shows no acute process) Disposition Clinical Impression: Chest pain Disposition: ADMITTED IP TO THIS [facility] Is patient prescribed a controlled substance at d/c from ED?: No Referrals: Mark Farley MD [Primary Care Provider] - 1-2 days Decision Time: 12:29
[2020-10-14 11:02] LABS: Basophils # (A) 0.1 k/uL (0-0.2); Basophils % (A) 1 %; Eosinophils # (A) 0.1 k/uL (0-0.7); Eosinophils % (A) 1 %; HCT 43.2 % (34.0-46.0); HGB 14.3 gm/dL (11.4-16.0); Lymphocytes # (A) 0.9 k/uL (1.0-4.8); Lymphocytes % (A) 11 %; MCH 29.8 pg (25.0-35.0); MCHC 33.1 g/dL (31.0-37.0); Mean Platelet Volume 7.2; Monocytes # (A) 0.2 k/uL (0-1.0); Monocytes % (A) 2 %; Neutrophils # (A) 6.8 k/uL (1.3-7.7); Neutrophils % (A) 84 %; Platelet Count 227 k/uL (150-450); WBC 8.1 k/uL (3.8-10.6)
--- NOTE | 2020-10-14 11:15 | XR ---
EXAMINATION TYPE: XR chest 2V DATE OF EXAM: 10/14/2020 COMPARISON: Chest x-ray 05/13/2019 HISTORY: Chest pain and shortness of breath TECHNIQUE: Frontal and lateral views of the chest are obtained. FINDINGS: There is no focal air space opacity, pleural effusion, or pneumothorax seen. The cardiac silhouette size is stable, small. There are prominent lung volume suggesting underlying COPD. There are overlying leads. Aorta is dense. The osseous structures are intact, mild spinal curvature noted. IMPRESSION: No acute cardiopulmonary process.
[2020-10-14 11:19] LABS: Albumin 4.8 g/dL (3.5-5.0); Calcium 9.9 mg/dL (8.4-10.2); Potassium 4.4 mmol/L (3.5-5.1); Total Bilirubin 0.8 mg/dL (0.2-1.3); Total Protein 7.7 g/dL (6.3-8.2)
[2020-10-14 11:28] LABS: D-Dimer 0.33 mg/L FEU (<0.60); Partial Thromboplastin Time 23.7 sec (22.0-30.0); Prothrombin Time 10.6 sec (9.0-12.0)
[2020-10-14 11:35] LABS: Magnesium 1.7 mg/dL (1.6-2.3)
[2020-10-14] MEDS ORDERED: NITROGLYCERIN SL TABS 0.4 MG TAB SUBLINGUAL PRN (12:29)
[2020-10-14] MEDS ORDERED: ONDANSETRON 4 MG/2 ML VIAL IVP STA (12:42)
[2020-10-14] MEDS ORDERED: ALPRAZolam 0.25 MG TAB PO STA (13:23)
[2020-10-14 16:10] VITALS: RESP 18
[2020-10-14] MEDS ORDERED: ONDANSETRON ODT 4 MG TAB PO PRN (16:59)
[2020-10-14] MEDS ORDERED: ACETAMINOPHEN TAB 500 MG TAB PO PRN (16:59)
[2020-10-14] MEDS: NITROGLYCERIN OINT 1 INCH/GM PACKET TOPICAL SCH ×2 (17:58→22:56)
[2020-10-14] MEDS ORDERED: ALPRAZolam 0.25 MG TAB PO PRN (19:22)
[2020-10-14] MEDS ORDERED: LORATADINE 10 MG TAB PO PRN (19:22)
[2020-10-14] MEDS ORDERED: ATORVASTATIN 10 MG TAB PO SCH (21:00)
--- NOTE | 2020-10-14 23:40 | P.HPIM ---
History of Present Illness H&P Date: 10/14/20 Chief Complaint: Atypical chest pain, hyponatremia, hypertension and hyperli pidemia HISTORY OF PRESENT ILLNESS: 70-year-old female one of my office patient with known to have history of hypertension, hyperlipidemia, and anxiety attacks who has not been hospitalized for may years developed to have midsternal chest pain along with left-sided chest pain on and off for the last 3 days symptom becomes slightly bit worse with exertion and when leaning more toward the right side. Patient had no exposure to Covid 19 lately never been diagnosed with cardiac disease has not had any stress test in the last few years. She is presented to the ER with the above complaint was seen and evaluated her EKG didn't show any major abnormality CK with troponin was negative Covid 19 testing was negative has well found to have mild hyponatremia on mildly elevated blood sugar patient will be hospitalized CK with troponin 3 be done, will be seen cardiology and eventually plan for stress test if not possible will be done as an outpatient. REVIEW OF SYSTEMS: Constitutional: No fever, no chills, no night sweats. No weight change. No weakness, fatigue or lethargy. No daytime sleepiness. HEENT: No headache. No blurred vision or double vision, no loss of vision. No loss of Hearing, no ringing in the ears, no dizziness. No nasal drainage or congestion. No epistaxis. No sore throat. Lungs: No shortness of breath, cough, no sputum production. No wheezing. Cardiovascular: Positive chest pain, no lower extremity edema. No palpitations. No paroxysmal nocturnal dyspnea. No orthopnea. No lightheadedness or dizziness. No syncopal episodes. Abdominal: No abdominal pain. No nausea, vomiting. No diarrhea. No constipa tion. No bloody or tarry stools.. No loss of appetite. Genitourinary: No dysuria, increased frequency, urgency. No urinary retention. Musculoskeletal: No myalgias. No muscle weakness, no gait dysfunction, no frequent falls. No back pain. No neck pain. Integumentary: No wounds, no lesions. No rash or pruritus. No unusual bruising. No change in hair or nails. Neurologic: No aphasia. No facial droop. No change in mentation. No head injury. No headache. No paralysis. No paresthesia. Psychiatric: No depression. No anxiety. No mood swings. Endocrine: No abnormal blood sugars. No weight change. No excessive sweating or thirst. No cold intolerance. SOCIAL HISTORY: Patient never smoked, no alcohol abuse, no illicit drug use she is retired does not use any CPAP or BiPAP no nebulizer does not need a walker or cane. FAMILY HISTORY: Positive for heart disease, chronic kidney disease, diabetes type hypertension. PHYSICAL EXAMINATION: Gen: This is a 70-year-old female does not look in any respiratory distress resting comfortably in bed. HEENT: Head is atraumatic, normocephalic. Pupils equal, round. Sclerae is anicteric. NECK: Supple. No JVD. No lymphadenopathy. No thyromegaly. LUNGS: Clear to auscultation. No wheezes or rhonchi. No intercostal retractions. HEART: Regular rate and rhythm. No murmur. ABDOMEN: Soft. Bowel sounds are present. No masses. No tenderness. EXTREMITIES: No pedal edema. No calf tenderness. NEUROLOGICAL: Patient is awake, alert and oriented x3. Cranial nerves 2 through 12 are grossly intact. ASSESSMENT AND PLAN: 1. Atypical chest pain: Patient be hospitalized, repeat EKG in the morning, consult cardiology, continue to do CK with troponin 3 if any abnormality patient might need intervention otherwise we'll plan for stress test.. 2. Mild hyponatremia: Etiology is not clear at this point the patient is on Dyazide part of bicipital prolonged might be the cause at this point, we watch fluid intake repeat CMP in the morning.. 3. Hyperglycemia: Continue with diet control we'll watch for any sign and symptom of diabetes eventually. 4. Hypertension: Has been on Ziac 2.5/6.25 mg daily has been doing well with it tolerating medication with no side effect. 5. Hyperlipidemia: Has been on simvastatin 20 mg a day and tolerating it well with no side effect. 6. Mild anxiety attacks: Continue patient on Xanax on as needed basis. 7. GI prophylaxis: Patient will be on Pepcid 20 mg daily. 8. DVT prophylaxis: Early mobilization and knee-high DANIELA hose. 9. Patient presented to the hospital and hospitalized on a padded to make time Covid 19 testing was done and was negative. Patient will be admitted to the hospital for a minimum of 1 night stay. Past Medical History Past Medical History: Hyperlipidemia, Hypertension History of Any Multi-Drug Resistant Organisms: None Reported Past Surgical History: Cholecystectomy, Hysterectomy Additional Past Surgical History / Comment(s): cyst removed from right breast at age 18 Past Psychological History: Anxiety Smoking Status: Never smoker Past Alcohol Use History: None Reported Past Drug Use History: None Reported Medications and Allergies Home Medications Medication Instructions Recorded Confirmed Type ALPRAZolam [Xanax] 0.125 - 0.25 mg PO BID PRN 10/14/20 10/14/20 History Aspirin EC [Ecotrin Low Dose] 81 mg PO DAILY 10/14/20 10/14/20 History Bisoprolol-Hctz 2.5-6.25 mg [Ziac 1 tab PO DAILY 10/14/20 10/14/20 History 2.5-6.25 MG] Cetirizine HCl [Zyrtec] 10 mg PO DAILY PRN 10/14/20 10/14/20 History Multivitamins, Thera [Multivitamin 1 tab PO DAILY 10/14/20 10/14/20 History (formulary)] Simvastatin [Zocor] 20 mg PO HS 10/14/20 10/14/20 History Allergies Allergy/AdvReac Type Severity Reaction Status Date / Time levofloxacin [From Levaquin] Allergy Nausea & Verified 10/14/20 11:23 Vomiting Physical Exam Vitals: Vital Signs Temp Pulse Pulse Resp BP BP Pulse Ox 10/14/20 16:09 98.1 F 67 18 161/66 100 10/14/20 15:16 97.9 F 69 16 143/66 99 10/14/20 15:00 69 16 143/66 99 10/14/20 14:00 67 16 99 10/14/20 13:00 67 16 99 10/14/20 12:29 67 16 169/80 99 10/14/20 11:29 69 16 149/75 99 10/14/20 10:27 97.9 F 76 18 193/81 99 Intake and Output 10/14/20 10/14/20 10/14/20 06:59 14:59 22:59 Intake Total 237 Balance 237 Intake: Oral 237 Other: Voiding Method Toilet Weight 50.802 kg 50.802 kg Results CBC & Chem 7: 10/14/20 10:54 10/14/20 10:54 Labs: Abnormal Lab Results - Last 24 Hours (Table) 10/14/20 10/14/20 Range/Units 10:54 10:54 Lymphocytes # 0.9 L (1.0-4.8) k/uL Sodium 129 L (137-145) mmol/L Chloride 95 L (98-107) mmol/L Glucose 137 H (74-99) mg/dL Thrombosis Risk Factor Assmnt - Choose All That Apply Any of the Below Risk Factors Present?: No Each Risk Factor Represents 2 Points: Age 61-74 years Other congenital or acquired thrombophilia - If yes, enter type in comment: No Thrombosis Risk Factor Assessment Total Risk Factor Score: 2 Thrombosis Risk Factor Assessment Level: Low Risk
[2020-10-15 08:15] VITALS: BP 148/67; PULSE 65; TEMP 97.6
[2020-10-15] MEDS ORDERED: ASPIRIN 81 MG PO SCH (09:00)
[2020-10-15] MEDS ORDERED: FAMOTIDINE 20 MG TAB PO SCH (09:00)
[2020-10-15] MEDS ORDERED: ASPIRIN 325 MG TAB PO SCH (09:00)
[2020-10-15] MEDS ORDERED: MULTIVITAMINS, THERA 1 EACH TAB PO SCH (09:00)
[2020-10-15] MEDS ORDERED: BISOPROLOL-HCTZ 2.5-6.25 MG 1 EACH TAB PO SCH (09:00)
[2020-10-15 09:31] LABS: Appearance,Urine Clear (Clear); Bilirubin,Urine Negative (Negative); Blood,Urine Negative (Negative); Color,Urine Yellow; Glucose,Urine (UA) Negative (Negative); Ketones,Urine 1+ (Negative); Leukocyte Esterase,Urine Moderate (Negative); Mucus,Urine Rare /hpf; Nitrite,Urine Negative (Negative); PH, Urine 6.5 (5.0-8.0); Protein,Urine Negative (Negative); RBC,Urine 1 /hpf (0-5); Specific Gravity,Urine 1.013 (1.001-1.035); Urobilinogen,Urine <2.0 mg/dL (<2.0); WBC,Urine 4 /hpf (0-5)
[2020-10-15 10:08] LABS: HCT 39.1 % (37.2-46.3); HGB 12.8 g/dL (12.0-15.0); MCH 30.3 pg (27.0-32.0); MCHC 32.7 g/dL (32.0-37.0); MCV 92.4 fL (80.0-97.0); Mean Platelet Volume 10.2 fL (9.5-12.2); Platelet Count 214 X 10*3/uL (140-440); RBC 4.23 X 10*6/uL (4.10-5.20); WBC 9.03 X 10*3/uL (4.50-10.00)
--- NOTE | 2020-10-15 10:59 | P.DS ---
Providers Date of admission: 10/14/20 12:29 Attending physician: Mark Farley Consults: 10/14/20 12:29 Consult Physician Urgent Consulting Provider: Luke Hawkins Consult Reason/Comments: cp Do you want consulting provider notified?: Yes Primary care physician: Mark Farley [facility] Course: HISTORY OF PRESENT ILLNESS: 70-year-old female one of my office patient with known to have history of hypertension, hyperlipidemia, and anxiety attacks who has not been hospitalized for may years developed to have midsternal chest pain along with left-sided chest pain on and off for the last 3 days symptom becomes slightly bit worse with exertion and when leaning more toward the right side. Patient had no exposure to Covid 19 lately never been diagnosed with cardiac disease has not had any stress test in the last few years. She is presented to the ER with the above complaint was seen and evaluated her EKG didn't show any major abnormality CK with troponin was negative Covid 19 testing was negative has well found to have mild hyponatremia on mildly elevated blood sugar patient will be hospitalized CK with troponin 3 be done, will be seen cardiology and eventually plan for stress test if not possible will be done as an outpatient. 10/15: Patient is found resting comfortably in bed without any complaints or concerns. Patient states that she does not have any further chest pain. Her cardiac enzymes were negative. She will be discharged if cleared by cardiology for outpatient echocardiogram unless noted by cardiology. Patient is agreeable to care plan. Questions were answered. Discharge diagnosis 1. Atypical chest pain: 2. Mild hyponatremia: 3. Hyperglycemia: 4. Hypertension: 5. Hyperlipidemia: 6. Mild anxiety attacks: Discharge disposition: Home Impression and plan of care have been directed as dictated by the signing physician. Shayy Quevedo nurse practitioner acting as scribe for signing physician. Plan - Discharge Summary Discharge Rx Participant: No New Discharge Prescriptions: New Acetaminophen Tab [Tylenol] 500 mg PO Q6HR PRN tab PRN Reason: Fever And/ Or Pain Continue Simvastatin [Zocor] 20 mg PO HS Bisoprolol-Hctz 2.5-6.25 mg [Ziac 2.5-6.25 MG] 1 tab PO DAILY Aspirin EC [Ecotrin Low Dose] 81 mg PO DAILY ALPRAZolam [Xanax] 0.125 - 0.25 mg PO BID PRN PRN Reason: Anxiety Multivitamins, Thera [Multivitamin (formulary)] 1 tab PO DAILY Cetirizine HCl [Zyrtec] 10 mg PO DAILY PRN PRN Reason: Allergy Symptoms Discharge Medication List ALPRAZolam [Xanax] 0.125 - 0.25 mg PO BID PRN 10/14/20 [History] Aspirin EC [Ecotrin Low Dose] 81 mg PO DAILY 10/14/20 [History] Bisoprolol-Hctz 2.5-6.25 mg [Ziac 2.5-6.25 MG] 1 tab PO DAILY 10/14/20 [History] Cetirizine HCl [Zyrtec] 10 mg PO DAILY PRN 10/14/20 [History] Multivitamins, Thera [Multivitamin (formulary)] 1 tab PO DAILY 10/14/20 [History] Simvastatin [Zocor] 20 mg PO HS 10/14/20 [History] Acetaminophen Tab [Tylenol] 500 mg PO Q6HR PRN tab 10/15/20 [Rx] Follow up Appointment(s)/Referral(s): Mark Farley MD [Primary Care Provider] - 1-2 days Patient Instructions/Handouts: Chest Pain (DC)
[2020-10-15 11:28] LABS: African American GFR (CKD) 59.7 (60.0-200.0); Albumin 4.5 g/dL (3.80-4.90); Albumin/Globulin Ratio 2.37 (1.60-3.17); Anion Gap 5.5 mmol/L (4.00-12.00); BUN/Creat Ratio 10.91 Ratio (12.00-20.00); Carbon Dioxide 27.5 mmol/L (21.6-31.8); Chol/HDL Ratio 2.46; Globulin 1.9 g/dL (1.6-3.3); LDL Cholesterol,Calculated 66.4 mg/dL (0.0-131.0); Non-African American GFR(CKD) 51.5 (60.0-200.0); Potassium 5.2 mmol/L (3.5-5.5); Total Bilirubin 0.9 mg/dL (0.3-1.2); Total Protein 6.4 g/dL (6.2-8.2); VLDL Calculation 15.6 mg/dL (5.00-40.00)
--- NOTE | 2020-10-15 11:38 | P.CRDCN ---
History of Present Illness History of present illness: HISTORY OF PRESENTING ILLNESS Patient is a pleasant 70-year-old female with history of hypertension, hyperlipidemia, anxiety, strong family history of coronary artery disease who presents secondary to right-sided and sternal chest pain which has been happening for the last 3 days. Patient states she moved a large bag of seed approximately 4 days ago and then the next day started having the chest pains. She denies any association however with positioning and no association with exertion. She denies any associated nausea, diaphoresis or shortness breath. She has not had chest pain similar to this in the past. No recent fevers, chills, cough. She was somewhat concerned that it may be coded and therefore presented to emergency department. Troponins negative 3. ProBNP 337, d-dimer 0.3. Sodium noted to be low at 129. Currently today patient denies any further chest pain or pressure. EKG performed yesterday shows right axis deviation, poor R-wave progression, no significant ST or T-wave abnormalities. Blood pressure elevated with systolics in the 190s however appears related to anxiety and improve for about hospitalization. Telemetry reveals only normal sinus rhythm. REVIEW OF SYSTEMS At the time of my exam: CONSTITUTIONAL: Denies fever or chills. CARDIOVASCULAR: +chest pain, no shortness of breath, orthopnea, PND or palpitations. RESPIRATORY: Denies cough. GASTROINTESTINAL: Denies abdominal pain, diarrhea, constipation, nausea or vomiting. MUSCULOSKELETAL: Denies myalgias. NEUROLOGIC: Denies numbness, tingling or weakness. ENDOCRINE: Denies fatigue, weight change, polydipsia or polyurina. GENITOURINARY: Denies burning, hematuria or urgency with micturation. HEMATOLOGIC: Denies history of anemia or bleeding. PHYSICAL EXAMINATION Vital signs reviewed. CONSTITUTIONAL: No apparent distress. HEENT: Head is normocephalic. Pupils are equal, round. Sclerae anicteric. Mucous membranes of the mouth are moist. No JVD. No carotid bruit. CHEST EXAMINATION: Lungs are clear to auscultation. No chest wall tenderness is noted on palpation or with deep breathing. HEART EXAMINATION: Regular rate and rhythm. S1, S2 heard. No murmurs, gallops or rub. ABDOMEN: Soft, nontender. Positive bowel sounds. EXTREMITIES: 2+ peripheral pulses, no lower extremity edema and no calf tenderness. NEUROLOGIC EXAMINATION: Patient is awake, alert and oriented x3. ASSESSMENT 1. Atypical chest pain, troponin negative 3, acute Darin syndrome ruled out 2. Hypertension elevated on presentation likely related to anxiety 3. Hyperlipidemia 4. Family history of coronary artery disease 5. Hyponatremia PLAN Patient's chest pain is atypical and may be related to recent heavy lifting however not reproducible on exam. Troponins negative 3. Discussed possible inpatient testing with stress test tomorrow versus outpatient and patient did prefer outpatient. Patient appears stable for discharge home and chest pain appears atypical. Past Medical History Past Medical History: Hyperlipidemia, Hypertension History of Any Multi-Drug Resistant Organisms: None Reported Past Surgical History: Cholecystectomy, Hysterectomy Additional Past Surgical History / Comment(s): cyst removed from right breast at age 18 Past Psychological History: Anxiety Smoking Status: Never smoker Past Alcohol Use History: None Reported Past Drug Use History: None Reported Medications and Allergies Home Medications Medication Instructions Recorded Confirmed Type ALPRAZolam [Xanax] 0.125 - 0.25 mg PO BID PRN 10/14/20 10/14/20 History Aspirin EC [Ecotrin Low Dose] 81 mg PO DAILY 10/14/20 10/14/20 History Bisoprolol-Hctz 2.5-6.25 mg [Ziac 1 tab PO DAILY 10/14/20 10/14/20 History 2.5-6.25 MG] Cetirizine HCl [Zyrtec] 10 mg PO DAILY PRN 10/14/20 10/14/20 History Multivitamins, Thera [Multivitamin 1 tab PO DAILY 10/14/20 10/14/20 History (formulary)] Simvastatin [Zocor] 20 mg PO HS 10/14/20 10/14/20 History Acetaminophen Tab [Tylenol] 500 mg PO Q6HR PRN tab 10/15/20 Rx Allergies Allergy/AdvReac Type Severity Reaction Status Date / Time levofloxacin [From Levaquin] Allergy Nausea & Verified 10/14/20 11:23 Vomiting Physical Exam Vitals: Vital Signs Temp Pulse Pulse Resp BP BP Pulse Ox 10/15/20 08:58 100 10/15/20 07:00 97.6 F 65 18 148/67 100 10/15/20 02:52 98.0 F 62 18 131/60 98 10/15/20 01:47 18 10/14/20 19:05 97.9 F 73 18 128/67 96 04/24/21 16:09 98.1 F 67 18 161/66 100 10/14/20 15:16 97.9 F 69 16 143/66 99 10/14/20 15:00 69 16 143/66 99 10/14/20 14:00 67 16 99 10/14/20 13:00 67 16 99 10/14/20 12:29 67 16 169/80 99 Intake and Output 10/14/20 10/15/20 10/15/20 22:59 06:59 14:59 Intake Total 237 Balance 237 Intake: Oral 237 Other: Voiding Method Toilet Toilet Toilet # Voids 1 2 Weight 50.802 kg Results 10/15/20 05:13 10/15/20 05:13 Cardiac Enzymes 10/14/20 10/14/20 10/14/20 Range/Units 10:54 14:15 17:11 AST (13-35) U/L Troponin I <0.012 <0.012 <0.012 (0.000-0.034) ng/mL 10/15/20 Range/Units 05:13 AST 22 (13-35) U/L Troponin I (0.000-0.034) ng/mL Lipids 10/15/20 Range/Units 05:13 Triglycerides 78.0 (0.0-149.0) mg/dL Cholesterol 138 (0-200) mg/dL HDL Cholesterol 56.0 (40.0-60.0) mg/dL Cholesterol/HDL Ratio 2.46 CBC 10/15/20 Range/Units 05:13 WBC 9.03 (4.50-10.00) X 10*3/uL RBC 4.23 (4.10-5.20) X 10*6/uL Hgb 12.8 (12.0-15.0) g/dL Hct 39.1 (37.2-46.3) % Plt Count 214 (140-440) X 10*3/uL Comprehensive Metabolic Panel 10/15/20 Range/Units 05:13 Sodium 133 L (135-145) mmol/L Potassium 5.2 (3.5-5.5) mmol/L Chloride 100 (96-109) mmol/L Carbon Dioxide 27.5 (21.6-31.8) mmol/L BUN 12.0 (9.0-27.0) mg/dL Creatinine 1.1 (0.6-1.5) mg/dL Glucose 108 (70-110) mg/dL Calcium 10.0 (8.7-10.3) mg/dL AST 22 (13-35) U/L ALT 16 (8-44) U/L Alkaline Phosphatase 39 L (41-126) U/L Total Protein 6.4 (6.2-8.2) g/dL Albumin 4.50 (3.80-4.90) g/dL Current Medications Generic Name Dose Route Start Last Admin Trade Name Freq PRN Reason Stop Dose Admin Acetaminophen 500 mg 10/14/20 16:59 10/14/20 17:12 Acetaminophen Tab 500 Mg Tab PO 500 mg Q6HR PRN Administration Fever and/ or Pain Alprazolam 0.25 mg 10/14/20 19:22 10/14/20 20:06 Alprazolam 0.25 Mg Tab PO 0.25 mg BID PRN Administration Anxiety Aspirin 81 mg 10/15/20 09:00 10/15/20 08:59 Aspirin 81 Mg PO 81 mg DAILY MISHA Administration Atorvastatin Calcium 10 mg 10/14/20 21:00 10/14/20 20:06 Atorvastatin 10 Mg Tab PO 10 mg HS MISHA Administration Bisoprolol Fumarate 1 each 10/15/20 09:00 10/15/20 09:20 Bisoprolol-Hctz 2.5-6.25 Mg 1 Each Tab PO 1 each DAILY MISHA Administration Famotidine 20 mg 10/15/20 09:00 10/15/20 09:00 Famotidine 20 Mg Tab PO 20 mg DAILY MISHA Administration Loratadine 10 mg 10/14/20 19:22 Loratadine 10 Mg Tab PO DAILY PRN Allergy Symptoms Multivitamins 1 each 10/15/20 09:00 10/15/20 08:59 Multivitamins, Thera 1 Each Tab PO 1 each DAILY MISHA Administration Nitroglycerin 0.4 mg 10/14/20 12:29 Nitroglycerin Sl Tabs 0.4 Mg Tab SUBLINGUAL Q5M PRN Chest Pain Nitroglycerin 1 inch 10/14/20 18:00 10/14/20 22:56 Nitroglycerin Oint 1 Inch/Gm Packet TOPICAL Not Given Q6HR [facility] Ondansetron HCl 4 mg 10/14/20 16:59 10/15/20 05:07 Ondansetron Odt 4 Mg Tab PO 4 mg Q8HR PRN Administration Nausea Sodium Chloride 10 ml 10/14/20 21:00 10/15/20 09:00 Sodium Chloride 0.9% Flush 10 Ml Syringe IV 10 ml BID MISHA Administration Intake and Output 10/14/20 10/15/20 10/15/20 22:59 06:59 14:59 Intake Total 237 Balance 237 Intake: Oral 237 Other: Voiding Method Toilet Toilet Toilet # Voids 1 2 Weight 50.802 kg 10/15/20 05:13 10/15/20 05:13
== END 2020-10-15 12:18 | disposition home or self-care (01) ==
LOC: EC 10:25 → 6NMEDSUR 12:29
PROVIDERS: ADMIT Internal Medicine Geriatric Medicine; ATTEND Internal Medicine Geriatric Medicine
DX: R07.2 Precordial pain (principal); I10 Essential (primary) hypertension; F41.9 Anxiety disorder, unspecified; R73.9 Hyperglycemia, unspecified; E78.5 Hyperlipidemia, unspecified; E87.1 Hypo-osmolality and hyponatremia; Z79.82 Long term (current) use of aspirin; Z79.899 Other long term (current) drug therapy; Z88.1 Allergy status to other antibiotic agents; Z20.822 Contact with and (suspected) exposure to COVID-19; Z90.49 Acquired absence of other specified parts of digestive tract; Z90.710 Acquired absence of both cervix and uterus; Z98.890 Other specified postprocedural states; Z82.49 Family history of ischemic heart disease and other diseases of the circulatory system
CPT/HCPCS: 96374; 99285; 36415; 94760; 93005; 85379; 83880; 80061; 80053 ×2; 83735; 84484; 85025; 85027; 85610; 85730; 81001; 87635; 71046; G0378 ×2; J2405

== ENCOUNTER 2021-03-02 01:44 | Emergency (ER) | payer MEDICARE, OTHER ==
[2021-03-02 02:20] LABS: Basophils % (A) 0 %; Eosinophils % (A) 0 %; HCT 42.5 % (34.0-46.0); HGB 14.4 gm/dL (11.4-16.0); Lymphocytes # (A) 0.6 k/uL (1.0-4.8); Lymphocytes % (A) 6 %; MCH 31.3 pg (25.0-35.0); MCHC 33.9 g/dL (31.0-37.0); MCV 92.3 fL (80.0-100.0); Monocytes # (A) 0.2 k/uL (0-1.0); Monocytes % (A) 2 %; Neutrophils # (A) 8.2 k/uL (1.3-7.7); Neutrophils % (A) 91 %; Platelet Count 250 k/uL (150-450); RBC 4.61 m/uL (3.80-5.40); RDW 12.3 % (11.5-15.5)
[2021-03-02] MEDS ORDERED: ONDANSETRON 4 MG/2 ML VIAL IVP STA (02:22)
[2021-03-02] MEDS ORDERED: SODIUM CHLORIDE 0.9% 500 ML 500 ML IV STA (02:22)
[2021-03-02 02:41] LABS: Calcium 10.3 mg/dL (8.4-10.2); Potassium 4.2 mmol/L (3.5-5.1); Total Bilirubin 0.9 mg/dL (0.2-1.3); Total Protein 7.9 g/dL (6.3-8.2)
[2021-03-02 02:48] LABS: Appearance,Urine Clear (Clear); Bilirubin,Urine Negative (Negative); Blood,Urine Negative (Negative); Color,Urine Yellow; Glucose,Urine (UA) 1+ (Negative); Leukocyte Esterase,Urine Negative (Negative); Nitrite,Urine Negative (Negative); PH, Urine 6.5 (5.0-8.0); Protein,Urine Negative (Negative); Specific Gravity,Urine 1.014 (1.001-1.035); Urobilinogen,Urine <2.0 mg/dL (<2.0)
[2021-03-02] MEDS ORDERED: ALPRAZolam 0.5 MG TAB PO STA (02:55)
[2021-03-02 02:57] LABS: Ketones,Urine 2+ (Negative)
[2021-03-02] MEDS ORDERED: PROCHLORPERAZINE INJ 10 MG/2 ML VIAL IVP STA (03:36)
--- NOTE | 2021-03-02 04:52 | ED ---
Nausea/Vomiting/Diarrhea HPI - General Chief complaint: Nausea/Vomiting/Diarrhea Stated complaint: Vomiting Time Seen by Provider: 03/02/21 01:58 Source: patient Mode of arrival: wheelchair Limitations: no limitations - History of Present Illness MD complaint: nausea, vomiting -: hour(s) Description of Vomiting: food contents Associated Abdominal Pain: No Consistency: constant Improves with: none Worsens with: none Associated Symptoms: nausea/vomiting - Related Data Home Medications Medication Instructions Recorded Confirmed ALPRAZolam [Xanax] 0.125 - 0.25 mg PO BID PRN 10/14/20 10/14/20 Aspirin EC [Ecotrin Low Dose] 81 mg PO DAILY 10/14/20 10/14/20 Bisoprolol-Hctz 2.5-6.25 mg [Ziac 1 tab PO DAILY 10/14/20 10/14/20 2.5-6.25 MG] Cetirizine HCl [Zyrtec] 10 mg PO DAILY PRN 10/14/20 10/14/20 Multivitamins, Thera [Multivitamin 1 tab PO DAILY 10/14/20 10/14/20 (formulary)] Simvastatin [Zocor] 20 mg PO HS 10/14/20 10/14/20 Previous Rx's Medication Instructions Recorded Acetaminophen Tab [Tylenol] 500 mg PO Q6HR PRN tab 10/15/20 Prochlorperazine [Compazine] 5 mg PO Q6HR PRN #15 tab 03/02/21 Allergies Allergy/AdvReac Type Severity Reaction Status Date / Time levofloxacin [From Levaquin] Allergy Nausea & Verified 10/14/20 11:23 Vomiting Review of Systems ROS Statement: Those systems with pertinent positive or pertinent negative responses have been documented in the HPI. ROS Other: All systems not noted in ROS Statement are negative. Constitutional: Denies: fever, chills, weakness Respiratory: Denies: cough, dyspnea Cardiovascular: Denies: chest pain, palpitations, edema Gastrointestinal: Reports: nausea, vomiting. Denies: abdominal pain, diarrhea, constipation, hematemesis, melena, hematochezia Genitourinary: Denies: dysuria, frequency, hematuria Musculoskeletal: Denies: back pain Skin: Denies: rash Neurological: Denies: headache, weakness, numbness Past Medical History Past Medical History: Hyperlipidemia, Hypertension History of Any Multi-Drug Resistant Organisms: None Reported Past Surgical History: Cholecystectomy, Hysterectomy Additional Past Surgical History / Comment(s): cyst removed from right breast at age 18 Past Psychological History: Anxiety Smoking Status: Never smoker Past Alcohol Use History: None Reported Past Drug Use History: None Reported General Exam Limitations: no limitations General appearance: alert, in no apparent distress Head exam: Present: atraumatic, normocephalic Eye exam: Present: normal appearance. Absent: scleral icterus, conjunctival injection Respiratory exam: Present: normal lung sounds bilaterally. Absent: respiratory distress, wheezes, rales, rhonchi, stridor Cardiovascular Exam: Present: regular rate, normal rhythm, normal heart sounds. Absent: systolic murmur, diastolic murmur, rubs, gallop GI/Abdominal exam: Present: soft. Absent: distended, tenderness, guarding, rebound, rigid, mass Extremities exam: Present: normal inspection, normal capillary refill. Absent: pedal edema, calf tenderness Back exam: Present: normal inspection. Absent: CVA tenderness (R), CVA tenderness (L) Neurological exam: Present: alert Skin exam: Present: warm, dry, intact, normal color. Absent: rash Course Vital Signs 03/02/21 03/02/21 01:46 04:59 Temperature 98.1 F 98.2 F Pulse Rate 91 84 Respiratory 16 17 Rate Blood Pressure 186/78 169/69 O2 Sat by Pulse 97 99 Oximetry Medical Decision Making - Lab Data Result diagrams: 03/02/21 02:09 03/02/21 02:09 Lab Results 03/02/21 03/02/21 03/02/21 Range/Units 02:09 02:09 02:09 WBC 9.0 (3.8-10.6) k/uL RBC 4.61 (3.80-5.40) m/uL Hgb 14.4 (11.4-16.0) gm/dL Hct 42.5 (34.0-46.0) % MCV 92.3 (80.0-100.0) fL MCH 31.3 (25.0-35.0) pg MCHC 33.9 (31.0-37.0) g/dL RDW 12.3 (11.5-15.5) % Plt Count 250 (150-450) k/uL MPV 7.0 Neutrophils % 91 % Lymphocytes % 6 % Monocytes % 2 % Eosinophils % 0 % Basophils % 0 % Neutrophils # 8.2 H (1.3-7.7) k/uL Lymphocytes # 0.6 L (1.0-4.8) k/uL Monocytes # 0.2 (0-1.0) k/uL Eosinophils # 0.0 (0-0.7) k/uL Basophils # 0.0 (0-0.2) k/uL Sodium 127 L (137-145) mmol/L Potassium 4.2 (3.5-5.1) mmol/L Chloride 92 L (98-107) mmol/L Carbon Dioxide 23 (22-30) mmol/L Anion Gap 12 mmol/L BUN 13 (7-17) mg/dL Creatinine 0.80 (0.52-1.04) mg/dL Est GFR (CKD-EPI)AfAm 88 (>60 ml/min/1.73 sqM) Est GFR (CKD-EPI)NonAf 76 (>60 ml/min/1.73 sqM) Glucose 163 H (74-99) mg/dL Calcium 10.3 H (8.4-10.2) mg/dL Total Bilirubin 0.9 (0.2-1.3) mg/dL AST 32 (14-36) U/L ALT 19 (4-34) U/L Alkaline Phosphatase 46 (38-126) U/L Total Protein 7.9 (6.3-8.2) g/dL Albumin 5.0 (3.5-5.0) g/dL Amylase 105 (30-110) U/L Lipase 220 (23-300) U/L Urine Color Yellow Urine Appearance Clear (Clear) Urine pH 6.5 (5.0-8.0) Ur Specific Gerton 1.014 (1.001-1.035) Urine Protein Negative (Negative) Urine Glucose (UA) 1+ H (Negative) Urine Ketones 2+ H (Negative) Urine Blood Negative (Negative) Urine Nitrite Negative (Negative) Urine Bilirubin Negative (Negative) Urine Urobilinogen <2.0 (<2.0) mg/dL Ur Leukocyte Esterase Negative (Negative) Coronavirus (PCR) (Not Detectd) 03/02/21 Range/Units 02:47 WBC (3.8-10.6) k/uL RBC (3.80-5.40) m/uL Hgb (11.4-16.0) gm/dL Hct (34.0-46.0) % MCV (80.0-100.0) fL MCH (25.0-35.0) pg MCHC (31.0-37.0) g/dL RDW (11.5-15.5) % Plt Count (150-450) k/uL MPV Neutrophils % % Lymphocytes % % Monocytes % % Eosinophils % % Basophils % % Neutrophils # (1.3-7.7) k/uL Lymphocytes # (1.0-4.8) k/uL Monocytes # (0-1.0) k/uL Eosinophils # (0-0.7) k/uL Basophils # (0-0.2) k/uL Sodium (137-145) mmol/L Potassium (3.5-5.1) mmol/L Chloride (98-107) mmol/L Carbon Dioxide (22-30) mmol/L Anion Gap mmol/L BUN (7-17) mg/dL Creatinine (0.52-1.04) mg/dL Est GFR (CKD-EPI)AfAm (>60 ml/min/1.73 sqM) Est GFR (CKD-EPI)NonAf (>60 ml/min/1.73 sqM) Glucose (74-99) mg/dL Calcium (8.4-10.2) mg/dL Total Bilirubin (0.2-1.3) mg/dL AST (14-36) U/L ALT (4-34) U/L Alkaline Phosphatase (38-126) U/L Total Protein (6.3-8.2) g/dL Albumin (3.5-5.0) g/dL Amylase (30-110) U/L Lipase (23-300) U/L Urine Color Urine Appearance (Clear) Urine pH (5.0-8.0) Ur Specific Gerton (1.001-1.035) Urine Protein (Negative) Urine Glucose (UA) (Negative) Urine Ketones (Negative) Urine Blood (Negative) Urine Nitrite (Negative) Urine Bilirubin (Negative) Urine Urobilinogen (<2.0) mg/dL Ur Leukocyte Esterase (Negative) Coronavirus (PCR) Not Detected (Not Detectd) Disposition Clinical Impression: Vomiting, Hyponatremia Disposition: HOME SELF-CARE Condition: Good Instructions (If sedation given, give patient instructions): Acute Nausea and Vomiting (ED) Prescriptions: Prochlorperazine [Compazine] 5 mg PO Q6HR PRN #15 tab PRN Reason: Vomiting Is patient prescribed a controlled substance at d/c from ED?: No Referrals: Mark Farley MD [Primary Care Provider] - 1-2 days
[2021-03-02 05:00] VITALS: BP 169/69; PULSE 84; RESP 17; TEMP 98.2
== END 2021-03-02 05:00 | disposition home or self-care (01) ==
LOC: EC 01:44
DX: E87.1 Hypo-osmolality and hyponatremia (principal); I10 Essential (primary) hypertension; E78.5 Hyperlipidemia, unspecified; F41.9 Anxiety disorder, unspecified; Z79.82 Long term (current) use of aspirin; Z88.1 Allergy status to other antibiotic agents; Z90.49 Acquired absence of other specified parts of digestive tract; Z79.899 Other long term (current) drug therapy
CPT/HCPCS: 36415; 80053; 82150; 83690; 85025; 81003; 87635; 96374; 96375; 96361 ×2; 99284; J0780; J2405

== ENCOUNTER → 2021-07-04 | Outpatient (CLI) | payer MEDICARE, OTHER ==
[2021-07-04 14:48] LABS: Basophils # (A) 0.06 X 10*3/uL (0.00-0.10); Basophils % (A) 0.8 %; Eosinophils # (A) 0.08 X 10*3/uL (0.04-0.35); Eosinophils % (A) 1.1 %; HCT 41.8 % (37.2-46.3); HGB 13.4 g/dL (12.0-15.0); Lymphocytes # (A) 1.56 X 10*3/uL (0.90-5.00); Lymphocytes % (A) 21.7 %; MCH 30.6 pg (27.0-32.0); MCHC 32.1 g/dL (32.0-37.0); MCV 95.4 fL (80.0-97.0); Mean Platelet Volume 10.4 fL (9.5-12.2); Monocytes # (A) 0.44 X 10*3/uL (0.20-1.00); Monocytes % (A) 6.1 %; Neutrophils # (A) 5.02 X 10*3/uL (1.80-7.70); Platelet Count 218 X 10*3/uL (140-440); RBC 4.38 X 10*6/uL (4.10-5.20); WBC 7.18 X 10*3/uL (4.50-10.00)
[2021-07-04 15:34] LABS: ALT 12 U/L (8-44); AST 16 U/L (13-35); African American GFR (CKD) 59.3 (60.0-200.0); Albumin 4.7 g/dL (3.8-4.9); Albumin/Globulin Ratio 2.24 (1.60-3.17); Alkaline Phosphatase 40 U/L (41-126); BUN/Creat Ratio 15.45 Ratio (12.00-20.00); Calcium 10.2 mg/dL (8.7-10.3); Carbon Dioxide 25.3 mmol/L (20.0-27.5); Chloride 96 mmol/L (96-109); Chol/HDL Ratio 2.66 Ratio; Globulin 2.1 g/dL (1.6-3.3); Glucose 98 mg/dL (70-110); LDL Cholesterol,Calculated 92.1 mg/dL (0.0-131.0); Non-African American GFR(CKD) 51.2 (60.0-200.0); Potassium 5.3 mmol/L (3.5-5.5); Sodium 134 mmol/L (135-145); Total Protein 6.8 g/dL (6.2-8.2); VLDL Calculation 16.36 mg/dL (5.00-40.00)
== END | disposition home or self-care (01) ==
LOC: LABWHC1 07:30
PROVIDERS: ATTEND Internal Medicine Geriatric Medicine
DX: Z00.00 Encounter for general adult medical examination without abnormal findings (principal); R73.09 Other abnormal glucose; E78.2 Mixed hyperlipidemia; G25.81 Restless legs syndrome
CPT/HCPCS: 36415; 80053; 80061; 83036; 84443; 85025

== ENCOUNTER → 2021-08-30 | Outpatient (CLI) | payer MEDICARE, OTHER ==
--- NOTE | 2021-09-03 10:34 | MM ---
Reason for exam: screening (asymptomatic). Last mammogram was performed 1 year and 2 months ago. History: Patient is postmenopausal. Benign excisional biopsy of the right breast, 1968. Took estrogen for 4 years 7 months beginning at age 52. Physical Findings: A clinical breast exam by your physician is recommended on an annual basis and results should be correlated with mammographic findings. MG 3D Screening Mammo W/Cad Bilateral CC and MLO view(s) were taken. XCCL view(s) were taken of the left breast. Prior study comparison: June 28, 2020, bilateral MG 3d screening mammo w/cad. September 02, 2018, bilateral MG screening mammo w CAD. The breast tissue is heterogeneously dense. This may lower the sensitivity of mammography. Benign vascular calcifications. No significant changes when compared with prior studies. ASSESSMENT: Benign, BI-RAD 2 RECOMMENDATION: Routine screening mammogram of both breasts in 1 year. Patient should continue monthly self breast exams. A negative report should not preclude additional follow up of suspicious palpable abnormalities.
== END | disposition home or self-care (01) ==
LOC: RADMAMWWP 10:13
PROVIDERS: ATTEND Internal Medicine Geriatric Medicine
DX: Z12.31 Encounter for screening mammogram for malignant neoplasm of breast (principal); Z78.0 Asymptomatic menopausal state
CPT/HCPCS: 77063; 77067

== ENCOUNTER → 2021-12-19 | Outpatient (CLI) | payer MEDICARE, OTHER ==
[2021-12-19 14:52] LABS: Basophils # (A) 0.11 X 10*3/uL (0.00-0.10); Basophils % (A) 1.6 %; Eosinophils # (A) 0.16 X 10*3/uL (0.04-0.35); Eosinophils % (A) 2.3 %; HCT 46.5 % (37.2-46.3); HGB 14.6 g/dL (12.0-15.0); Immature Grans, Automated 0.3 %; Lymphocytes % (A) 23.2 %; MCHC 31.4 g/dL (32.0-37.0); MCV 95.5 fL (80.0-97.0); Mean Platelet Volume 10.3 fL (9.5-12.2); Monocytes # (A) 0.47 X 10*3/uL (0.20-1.00); Monocytes % (A) 6.8 %; NRBC Per 100 WBC 0 /100 WBCS (0.0-0.0); Neutrophils # (A) 4.54 X 10*3/uL (1.80-7.70); Neutrophils % (A) 65.8 %; Platelet Count 240 X 10*3/uL (140-440); RBC 4.87 X 10*6/uL (4.10-5.20); RDW 12.2 % (11.5-14.5)
[2021-12-19 15:12] LABS: ALT 13 U/L (8-44); AST 19 U/L (13-35); African American GFR (CKD) 53.4 (60.0-200.0); Albumin 4.8 g/dL (3.8-4.9); Albumin/Globulin Ratio 1.85 (1.60-3.17); Alkaline Phosphatase 40 U/L (41-126); BUN/Creat Ratio 14.92 Ratio (12.00-20.00); Blood Urea Nitrogen 17.9 mg/dL (9.0-27.0); Carbon Dioxide 26.5 mmol/L (20.0-27.5); Chloride 98 mmol/L (96-109); Chol/HDL Ratio 2.62 Ratio; Globulin 2.6 g/dL (1.6-3.3); Glucose 104 mg/dL (70-110); LDL Cholesterol,Calculated 85.3 mg/dL (0.0-131.0); Non-African American GFR(CKD) 46.1 (60.0-200.0); Potassium 4.9 mmol/L (3.5-5.5); Sodium 134 mmol/L (135-145); Total Protein 7.4 g/dL (6.2-8.2); VLDL Calculation 16.06 mg/dL (5.00-40.00)
== END | disposition home or self-care (01) ==
LOC: LABWHC1 07:33
PROVIDERS: ATTEND Internal Medicine Geriatric Medicine
DX: E78.2 Mixed hyperlipidemia (principal); D50.9 Iron deficiency anemia, unspecified; G25.0 Essential tremor
CPT/HCPCS: 36415; 80053; 80061; 84443; 85025

== ENCOUNTER 2022-10-02 06:34 | Emergency (ER) | payer MEDICARE, OTHER ==
[2022-10-02 06:51] VITALS: TEMP 97.4
--- NOTE | 2022-10-02 07:27 | XR ---
EXAMINATION TYPE: XR chest 2V DATE OF EXAM: 10/02/2022 7:22 AM COMPARISON: Chest radiographs from 10/14/2020 TECHNIQUE: XR chest 2V Frontal and lateral views of the chest. CLINICAL INDICATION:Female, 72 years old with history of dysrhythmia; FINDINGS: Lungs/Pleura: There is flattening of the diaphragm with increased lucency of the lungs. No evidence o f pneumothorax, pleural effusion or focal consolidation. Chronic senescent parietal change. Left apic al pleural-parenchymal scarring. Pulmonary vascularity: Unremarkable. Heart/mediastinum: Cardiomediastinal silhouette is unremarkable. Atherosclerotic calcifications are seen in the aorta. Musculoskeletal: No acute osseous pathology. IMPRESSION: 1. No acute cardiopulmonary disease process. 2. COPD changes.
[2022-10-02 07:52] LABS: Basophils # (A) 0.1 k/uL (0-0.2); Basophils % (A) 1 %; Eosinophils # (A) 0.1 k/uL (0-0.7); Eosinophils % (A) 1 %; HCT 43.8 % (34.0-46.0); HGB 14.8 gm/dL (11.4-16.0); Lymphocytes % (A) 12 %; MCH 30.7 pg (25.0-35.0); MCHC 33.7 g/dL (31.0-37.0); Monocytes # (A) 0.3 k/uL (0-1.0); Monocytes % (A) 3 %; Neutrophils % (A) 82 %; Platelet Count 244 k/uL (150-450); RBC 4.81 m/uL (3.80-5.40); RDW 11.7 % (11.5-15.5); WBC 8.6 k/uL (3.8-10.6)
[2022-10-02] MEDS ORDERED: ONDANSETRON 4 MG/2 ML VIAL IVP STA (07:57)
[2022-10-02] MEDS ORDERED: SODIUM CHLORIDE 0.9% 500 ML 500 ML IV ONE (07:57)
[2022-10-02 08:04] LABS: Prothrombin Time 10.6 sec (9.0-12.0)
[2022-10-02 08:05] LABS: Albumin 4.4 g/dL (3.5-5.0); Calcium 9.6 mg/dL (8.4-10.2); Potassium 4.9 mmol/L (3.5-5.1); Total Bilirubin 1.3 mg/dL (0.2-1.3)
[2022-10-02 08:08] LABS: Partial Thromboplastin Time 21.8 sec (22.0-30.0)
--- NOTE | 2022-10-02 08:10 | ED ---
Arrhythmia/Palpitations HPI - General Chief Complaint: Arrhythmia/Palpitations Stated Complaint: Racing heart, High blood pressure, nausea Time Seen by Provider: 10/02/22 06:55 Source: patient, family Mode of arrival: ambulatory Limitations: no limitations - History of Present Illness Initial Comments: 72-year-old female with recent diagnosis of Parkinson's who presents to the emergency department with nausea, blurred vision and racing heart. States that symptoms started around 2 AM this morning. It felt like her heart was skipping a beat. She just saw her television antenna installer yesterday and was placed on a medication for high blood pressure. She previously took propranolol and was just started on losartan. Has yet to pick up driver this medication from the pharmacy. Her blood pressure has been running high. States she has been suffering from a lot of anxiety due to her recent diagnosis of Parkinson's. She admits that she has been having some nausea without vomiting. Denies headaches. No chest pain. No abdominal pain. Admits to poor appetite. No other alleviating, precipitating or modifying factors - Related Data Home Medications Medication Instructions Recorded Confirmed ALPRAZolam [Xanax] 0.125 mg PO BID 10/14/20 10/02/22 Aspirin EC [Ecotrin Low Dose] 81 mg PO DAILY 10/14/20 10/02/22 Multivitamins, Thera [Multivitamin 1 tab PO DAILY 10/14/20 10/02/22 (formulary)] Simvastatin [Zocor] 20 mg PO DAILY 10/14/20 10/02/22 Carbidopa-Levodopa 25-100 mg 1 tab PO BID 10/02/22 10/02/22 [Sinemet 25-100] Cranberry Fruit Extract [Cranberry] 500 mg PO DAILY 10/02/22 10/02/22 Losartan [Cozaar] 50 mg PO DAILY 10/02/22 10/02/22 Ondansetron [Zofran] 4 mg PO Q8H PRN 10/02/22 10/02/22 Pantoprazole Sodium [Protonix] 40 mg PO DAILY 10/02/22 10/02/22 Propranolol [Inderal] 20 mg PO BID 10/02/22 10/02/22 Allergies Allergy/AdvReac Type Severity Reaction Status Date / Time levofloxacin [From Levaquin] AdvReac Nausea & Verified 10/02/22 08:21 Vomiting & Shaking Review of Systems ROS Statement: Those systems with pertinent positive or pertinent negative responses have been documented in the HPI. ROS Other: All systems not noted in ROS Statement are negative. Past Medical History Past Medical History: Hyperlipidemia, Hypertension Additional Past Medical History / Comment(s): parkinsons History of Any Multi-Drug Resistant Organisms: None Reported Past Surgical History: Cholecystectomy, Hysterectomy Additional Past Surgical History / Comment(s): cyst removed from right breast at age 18 Past Psychological History: Anxiety Smoking Status: Never smoker Past Alcohol Use History: None Reported Past Drug Use History: None Reported General Exam Limitations: no limitations General appearance: alert, in no apparent distress Head exam: Present: atraumatic, normocephalic, normal inspection Eye exam: Present: normal appearance, PERRL, EOMI. Absent: scleral icterus, conjunctival injection, periorbital swelling ENT exam: Present: normal exam, mucous membranes moist Neck exam: Present: normal inspection. Absent: tenderness, meningismus, lymphadenopathy Respiratory exam: Present: normal lung sounds bilaterally. Absent: respiratory distress, wheezes, rales, rhonchi, stridor Cardiovascular Exam: Present: regular rate, normal rhythm, normal heart sounds. Absent: systolic murmur, diastolic murmur, rubs, gallop, clicks GI/Abdominal exam: Present: soft, normal bowel sounds. Absent: distended, tenderness, guarding, rebound, rigid Extremities exam: Present: normal inspection, full ROM, normal capillary refill. Absent: tenderness, pedal edema, joint swelling, calf tenderness Back exam: Present: normal inspection Neurological exam: Present: alert, oriented X3, CN II-XII intact Psychiatric exam: Present: normal affect, normal mood Skin exam: Present: warm, dry, intact, normal color. Absent: rash Course Vital Signs 10/02/22 10/02/22 10/02/22 06:46 07:31 08:00 Temperature 97.4 F L Pulse Rate 66 66 67 Respiratory 16 16 21 Rate Blood Pressure 171/86 196/84 O2 Sat by Pulse 100 97 Oximetry 10/02/22 10/02/22 10/02/22 09:00 10:00 11:08 Temperature Pulse Rate 70 67 64 Respiratory 15 20 18 Rate Blood Pressure 161/74 137/70 O2 Sat by Pulse 97 98 99 Oximetry EKG Findings - EKG Comments: EKG Findings:: EKG demonstrates sinus rhythm with a rate of 64. OR interval 188. QRS 82. QTC of 399. No acute ST segment elevations or depressions. Some peaked T waves V4 through V6 Medical Decision Making - Medical Decision Making Was pt. sent in by a medical professional or institution (, LIBBY, RN CCU, urgent care, hospital, or long term...) When possible be specific @ -No Did you speak to anyone other than the patient for history (EMS, parent, family, police, friend...)? What history was obtained from this source @ -No Did you review nursing and triage notes (agree or disagree)? Why? @ -I reviewed and agree with nursing and triage notes Were old charts reviewed (outside hosp., previous admission, EMS record, old EKG, old radiological studies, urgent care reports/EKG's, long term records)? Report findings @ -No old charts were reviewed Differential Diagnosis (chest pain, altered mental status, abdominal pain women, abdominal pain men, vaginal bleeding, weakness, fever, dyspnea, syncope, headache, dizziness, GI bleed, back pain, seizure, CVA, palpatations, mental health, musculoskeletal)? @ -acs, pleurisy, chest wall pain, nstemi, pe, electrolyte abnormality, dysrythmia EKG interpreted by me (3pts min.). @ -yes X-rays interpreted by me (1pt min.). @ -yes CT interpreted by me (1pt min.). @ -None done U/S interpreted by me (1pt. min.). @ -None done What testing was considered but not performed or refused? (CT, X-rays, U/S, labs)? Why? @ -None What meds were considered but not given or refused? Why? @ -None Did you discuss the management of the patient with other professionals (professionals i.e. LIBBY Kowalski, RN CCU, lab, RT, psych nurse, social service coordinator, learning strategist, teacher, sergeant of officers, cyanide case hardener)? Give summary @ -dr cavazos Was smoking cessation discussed for >3mins.? @ -No Was critical care preformed (if so, how long)? @ -No Were there social determinants of health that impacted care today? How? (Homelessness, low income, unemployed, alcoholism, drug addiction, transportation, low edu. Level, literacy, decrease access to med. care, skilled nursing, rehab)? @ -No Was there de-escalation of care discussed even if they declined (Discuss DNR or withdrawal of care, Hospice)? DNR status @ -No What co-morbidities impacted this encounter? (DM, HTN, Smoking, COPD, CAD, Cancer, CVA, ARF, Chemo, Hep., AIDS, mental health diagnosis, sleep apnea, morbid obesity)? @ -parkinsons, htn Was patient admitted / discharged? Hospital course, mention meds given and rou te, prescriptions, significant lab abnormalities, going to OR and other pertinent info. @ -Upon arrival patient was placed into room 15. History and physical exam is performed. Patient placed on continuous pulse ox and cardiac monitoring. 12- lead EKG is obtained which does demonstrate some PVCs. IV is established and laboratory studies are conducted. Sodium mildly low at 129. Chest x-ray demonstrates no acute process. Patient was given her morning blood pressure medications and her blood pressure does improve. I called and spoke with Dr. Cavazos in regards to the patient's symptoms. Recommend that she take her medication with food for which she is not. Offered to place her on famotidine for her symptoms of nausea however patient would prefer to not take any tariq tional medications at this time. Blood pressure does improve during her stay as well as her symptoms of nausea and blurred vision. Patient is instructed to buy a blood pressure cuff and keep a log. Call the cardiology office to notify them of her blood pressure readings. Return to the emergency room for any new or worsening symptoms. Patient is agreeable to plan and discharged home in stable condition Undiagnosed new problem with uncertain prognosis? @ -No Drug Therapy requiring intensive monitoring for toxicity (Heparin, Nitro, Insu isabel, Cardizem)? @ -No Were any procedures done? @ -No Diagnosis/symptom? @ -acute palpitations, pvcs, hyponatremia, acc htn Acute, or Chronic, or Acute on Chronic? @ -acute Uncomplicated (without systemic symptoms) or Complicated (systemic symptoms)? @ -complicated Side effects of treatment? @ -No Exacerbation, Progression, or Severe Exacerbation? @ -No Poses a threat to life or bodily function? How? (Chest pain, [place], [place], pneumonia, PE, COPD, DKA, ARF, appy, cholecystitis, CVA, Diverticulitis, Homicidal, Suicidal, threat to staff... and all critical care pts) @ -No - Lab Data Result diagrams: 10/02/22 07:32 10/02/22 07:32 Lab Results 10/02/22 10/02/22 10/02/22 Range/Units 07:32 07:32 07:32 WBC 8.6 (3.8-10.6) k/uL RBC 4.81 (3.80-5.40) m/uL Hgb 14.8 (11.4-16.0) gm/dL Hct 43.8 (34.0-46.0) % MCV 91.0 (80.0-100.0) fL MCH 30.7 (25.0-35.0) pg MCHC 33.7 (31.0-37.0) g/dL RDW 11.7 (11.5-15.5) % Plt Count 244 (150-450) k/uL MPV 7.0 Neutrophils % 82 % Lymphocytes % 12 % Monocytes % 3 % Eosinophils % 1 % Basophils % 1 % Neutrophils # 7.0 (1.3-7.7) k/uL Lymphocytes # 1.0 (1.0-4.8) k/uL Monocytes # 0.3 (0-1.0) k/uL Eosinophils # 0.1 (0-0.7) k/uL Basophils # 0.1 (0-0.2) k/uL PT 10.6 (9.0-12.0) sec INR 1.0 (<1.2) APTT 21.8 L (22.0-30.0) sec Sodium (137-145) mmol/L Potassium (3.5-5.1) mmol/L Chloride (98-107) mmol/L Carbon Dioxide (22-30) mmol/L Anion Gap mmol/L BUN (7-17) mg/dL Creatinine (0.52-1.04) mg/dL Est GFR (CKD-EPI)AfAm (>60 ml/min/1.73 sqM) Est GFR (CKD-EPI)NonAf (>60 ml/min/1.73 sqM) Glucose (74-99) mg/dL Calcium (8.4-10.2) mg/dL Magnesium (1.6-2.3) mg/dL Total Bilirubin (0.2-1.3) mg/dL AST (14-36) U/L ALT (4-34) U/L Alkaline Phosphatase (38-126) U/L Troponin I (0.000-0.034) ng/mL Total Protein (6.3-8.2) g/dL Albumin (3.5-5.0) g/dL TSH (0.465-4.680) mIU/L Urine Color Colorless Urine Appearance Clear (Clear) Urine pH 7.0 (5.0-8.0) Ur Specific [place] 1.004 (1.001-1.035) Urine Protein Negative (Negative) Urine Glucose (UA) Negative (Negative) Urine Ketones Trace H (Negative) Urine Blood Negative (Negative) Urine Nitrite Negative (Negative) Urine Bilirubin Negative (Negative) Urine Urobilinogen <2.0 (<2.0) mg/dL Ur Leukocyte Esterase Negative (Negative) 10/02/22 10/02/22 Range/Units 07:32 07:32 WBC (3.8-10.6) k/uL RBC (3.80-5.40) m/uL Hgb (11.4-16.0) gm/dL Hct (34.0-46.0) % MCV (80.0-100.0) fL MCH (25.0-35.0) pg MCHC (31.0-37.0) g/dL RDW (11.5-15.5) % Plt Count (150-450) k/uL MPV Neutrophils % % Lymphocytes % % Monocytes % % Eosinophils % % Basophils % % Neutrophils # (1.3-7.7) k/uL Lymphocytes # (1.0-4.8) k/uL Monocytes # (0-1.0) k/uL Eosinophils # (0-0.7) k/uL Basophils # (0-0.2) k/uL PT (9.0-12.0) sec INR (<1.2) APTT (22.0-30.0) sec Sodium 129 L (137-145) mmol/L Potassium 4.9 (3.5-5.1) mmol/L Chloride 95 L (98-107) mmol/L Carbon Dioxide 25 (22-30) mmol/L Anion Gap 9 mmol/L BUN 13 (7-17) mg/dL Creatinine 1.04 (0.52-1.04) mg/dL Est GFR (CKD-EPI)AfAm 63 (>60 ml/min/1.73 sqM) Est GFR (CKD-EPI)NonAf 55 (>60 ml/min/1.73 sqM) Glucose 109 H (74-99) mg/dL Calcium 9.6 (8.4-10.2) mg/dL Magnesium 2.0 (1.6-2.3) mg/dL Total Bilirubin 1.3 (0.2-1.3) mg/dL AST 24 (14-36) U/L ALT 18 (4-34) U/L Alkaline Phosphatase 40 (38-126) U/L Troponin I <0.012 (0.000-0.034) ng/mL Total Protein 7.0 (6.3-8.2) g/dL Albumin 4.4 (3.5-5.0) g/dL TSH 1.530 (0.465-4.680) mIU/L Urine Color Urine Appearance (Clear) Urine pH (5.0-8.0) Ur Specific [place] (1.001-1.035) Urine Protein (Negative) Urine Glucose (UA) (Negative) Urine Ketones (Negative) Urine Blood (Negative) Urine Nitrite (Negative) Urine Bilirubin (Negative) Urine Urobilinogen (<2.0) mg/dL Ur Leukocyte Esterase (Negative) Disposition Clinical Impression: Palpitations, Nausea, Hypertension Disposition: HOME SELF-CARE Condition: Stable Instructions (If sedation given, give patient instructions): Hypertension (ED) Additional Instructions: Please measure your blood pressures twice daily. Take your Sinemet with food. Follow-up with you primary care doctor and return for any new or worsening symptoms Is patient prescribed a controlled substance at d/c from ED?: No Referrals: Mark Farley MD [Primary Care Provider] - 1-2 days Armin Whittington MD [STAFF PHYSICIAN] - 1-2 days Luis Stern DO [STAFF PHYSICIAN] - 1-2 days Himanshu Membreno MD [REFERRING] - 1-2 days Loren Membreno MD [REFERRING] - 1-2 days Bhargav Jimenez MD [Medical Doctor] - 1-2 days Time of Disposition: 10:45
[2022-10-02] MEDS ORDERED: PROPRANOLOL 20 MG TAB PO STA (08:39)
[2022-10-02] MEDS ORDERED: LOSARTAN 50 MG TAB PO STA (08:40)
[2022-10-02] MEDS ORDERED: LORazepam 2 MG/ML INJ IV STA (08:55)
[2022-10-02 10:31] LABS: Appearance,Urine Clear (Clear); Bilirubin,Urine Negative (Negative); Blood,Urine Negative (Negative); Color,Urine Colorless; Glucose,Urine (UA) Negative (Negative); Ketones,Urine Trace (Negative); Leukocyte Esterase,Urine Negative (Negative); Nitrite,Urine Negative (Negative); Protein,Urine Negative (Negative); Specific Gravity,Urine 1.004 (1.001-1.035); Urobilinogen,Urine <2.0 mg/dL (<2.0)
[2022-10-02 11:09] VITALS: BP 137/70; PULSE 64; RESP 18
== END 2022-10-02 11:15 | disposition home or self-care (01) ==
LOC: EC 06:34
DX: I49.3 Ventricular premature depolarization (principal); R11.0 Nausea; E87.1 Hypo-osmolality and hyponatremia; I10 Essential (primary) hypertension; J44.9 Chronic obstructive pulmonary disease, unspecified; E78.5 Hyperlipidemia, unspecified; F41.9 Anxiety disorder, unspecified; Z79.82 Long term (current) use of aspirin; Z79.899 Other long term (current) drug therapy; Z88.1 Allergy status to other antibiotic agents
CPT/HCPCS: 99285 ×2; 96374 ×2; 96375 ×2; 36415; 93005; 80053; 83735; 84443; 84484; 85025; 85610; 85730; 81003; 71046; 96361; J2060; J2405

== ENCOUNTER → 2022-10-31 | Outpatient (CLI) | payer MEDICARE, OTHER | END | disposition home or self-care (01) | LOC: LABWHC1 07:49 | PROVIDERS: ATTEND Physician Assistant | DX: G20 Parkinson's disease (principal) | CPT/HCPCS: 36415; 82306; 82607; 84207 ==

== ENCOUNTER 2023-02-02 15:57 | Observation (INO) | payer MEDICARE, OTHER ==
[2023-02-02] MEDS ORDERED: ONDANSETRON 4 MG/2 ML VIAL IVP STA (16:46)
[2023-02-02] MEDS ORDERED: KETOROLAC 15 MG/ML 1 ML VIAL IVP STA (16:46)
[2023-02-02] MEDS ORDERED: SODIUM CHLORIDE 0.9% 1,000 ML IV STA (16:46)
--- NOTE | 2023-02-02 16:49 | ED ---
Abdominal Pain HPI - General Chief Complaint: Abdominal Pain Stated Complaint: diarrhea Time Seen by Provider: 02/02/23 16:27 Source: patient Mode of arrival: ambulatory Limitations: no limitations - History of Present Illness Initial Comments: 72-year-old female with past medical history significant for hypertension and hyperlipidemia presents to ED with a chief complaint of abdominal pain. Patient states 5 days ago started to experience diarrhea. States that this lasted for 2 days. Since then states that she has not had a bowel movement now in 3 days. Also notes now that every time she eats she starts to feel lower abdominal cramping and nausea. Patient currently states pain is not severe and describes it as cramping. Has been able to tolerate liquids without difficulty. Has not had food for the past 3 days secondary symptoms. No other complaints. - Related Data Home Medications Medication Instructions Recorded Confirmed ALPRAZolam [Xanax] 0.125 mg PO BID 10/14/20 10/02/22 Aspirin EC [Ecotrin Low Dose] 81 mg PO DAILY 10/14/20 10/02/22 Multivitamins, Thera [Multivitamin 1 tab PO DAILY 10/14/20 10/02/22 (formulary)] Simvastatin [Zocor] 20 mg PO DAILY 10/14/20 10/02/22 Carbidopa-Levodopa 25-100 mg 1 tab PO BID 10/02/22 10/02/22 [Sinemet 25-100] Cranberry Fruit Extract [Cranberry] 500 mg PO DAILY 10/02/22 10/02/22 Losartan [Cozaar] 50 mg PO DAILY 10/02/22 10/02/22 Ondansetron [Zofran] 4 mg PO Q8H PRN 10/02/22 10/02/22 Pantoprazole Sodium [Protonix] 40 mg PO DAILY 10/02/22 10/02/22 Propranolol [Inderal] 20 mg PO BID 10/02/22 10/02/22 Allergies Allergy/AdvReac Type Severity Reaction Status Date / Time levofloxacin [From Levaquin] AdvReac Nausea & Verified 02/02/23 16:05 Vomiting & Shaking Review of Systems ROS Statement: Those systems with pertinent positive or pertinent negative responses have been documented in the HPI. ROS Other: All systems not noted in ROS Statement are negative. Past Medical History Past Medical History: Hyperlipidemia, Hypertension Additional Past Medical History / Comment(s): parkinsons History of Any Multi-Drug Resistant Organisms: None Reported Past Surgical History: Cholecystectomy, Hysterectomy Additional Past Surgical History / Comment(s): cyst removed from right breast at age 18 Past Psychological History: Anxiety Smoking Status: Never smoker Past Alcohol Use History: None Reported Past Drug Use History: None Reported General Exam Limitations: no limitations General appearance: alert, in no apparent distress Neck exam: Present: normal inspection Respiratory exam: Present: normal lung sounds bilaterally Cardiovascular Exam: Present: regular rate, normal rhythm GI/Abdominal exam: Present: soft (No tenderness palpation. No rebound guarding or rigidity.) Extremities exam: Present: normal inspection Back exam: Present: normal inspection Neurological exam: Present: alert, oriented X3 Skin exam: Present: warm, dry Course Vital Signs 02/02/23 02/02/23 02/02/23 16:03 18:05 19:10 Temperature 98.1 F 98.3 F Pulse Rate 71 68 108 H Respiratory 18 19 Rate Blood Pressure 178/93 203/101 156/80 O2 Sat by Pulse 100 100 99 Oximetry 02/02/23 19:30 Temperature Pulse Rate 90 Respiratory Rate Blood Pressure 135/62 O2 Sat by Pulse 100 Oximetry Medical Decision Making - Medical Decision Making Was pt. sent in by a medical professional or institution (, PA, DENTAL OFFICE RECEPTIONIST, urgent care, hospital, or halfway...) When possible be specific @ -No Did you speak to anyone other than the patient for history (EMS, parent, family, police, friend...)? What history was obtained from this source @ -No Did you review nursing and triage notes (agree or disagree)? Why? @ -I reviewed and agree with nursing and triage notes Were old charts reviewed (outside hosp., previous admission, EMS record, old EKG, old radiological studies, urgent care reports/EKG's, halfway records)? Report findings @ -No old charts were reviewed Differential Diagnosis (chest pain, altered mental status, abdominal pain women, abdominal pain men, vaginal bleeding, weakness, fever, dyspnea, syncope, headache, dizziness, GI bleed, back pain, seizure, CVA, palpatations, mental health, musculoskeletal)? @ -Differential Abdominal Pain Women: Appendicitis, Cholecystitis, diverticulosis, ischemic bowel, pancreatitis, hepatitis, UTI, gastroenteritis, AAA, incarcerated hernia, bowel obstruction, constipation, inflammatory bowel, hepatitis, peptic ulcer disease, splenic infarction, perforated viscus, vulvitis, ovarian torsion, PID, kidney stone, placenta abruption, this is not meant to be an all-inclusive list EKG interpreted by me (3pts min.). @ -As above X-rays interpreted by me (1pt min.). @ -None done CT interpreted by me (1pt min.). @ -CT abdomen and pelvis showed evidence of enteritis. No other acute process. U/S interpreted by me (1pt. min.). @ -None done What testing was considered but not performed or refused? (CT, X-rays, U/S, labs)? Why? @ -None What meds were considered but not given or refused? Why? @ -None Did you discuss the management of the patient with other professionals (professionals i.e. , PA, DENTAL OFFICE RECEPTIONIST, lab, RT, psych nurse, social contact worker, tire service technician, teacher, chief program officer, insurance case manager)? Give summary @ -No Was smoking cessation discussed for >3mins.? @ -No Was critical care preformed (if so, how long)? @ -No Were there social determinants of health that impacted care today? How? (Homelessness, low income, unemployed, alcoholism, drug addiction, transportation, low edu. Level, literacy, decrease access to med. care, [facility], rehab)? @ -No Was there de-escalation of care discussed even if they declined (Discuss DNR or withdrawal of care, Hospice)? DNR status @ -No What co-morbidities impacted this encounter? (DM, HTN, Smoking, COPD, CAD, Cancer, CVA, ARF, Chemo, Hep., AIDS, mental health diagnosis, sleep apnea, morbid obesity)? @ -Hypertension, hyperlipidemia Was patient admitted / discharged? Hospital course, mention meds given and route, prescriptions, significant lab abnormalities, going to OR and other pertinent info. @ -Admission. Laboratory studies unremarkable. CT abdomen/pelvis showed evidence of enteritis. Vital signs stable, afebrile. Patient was initially to be discharged however started to have an episode of midsternal chest pain radiating to the left side of her neck. Repeat EKG during this time shows a sinus rhythm with no specific ST and T-wave changes. Patient provided 324 of aspirin. Troponins ordered. Patient will be admitted to observation with consult to cardiology. Undiagnosed new problem with uncertain prognosis? @ -No Drug Therapy requiring intensive monitoring for toxicity (Heparin, Nitro, Insulin, Cardizem)? @ -No Were any procedures done? @ -No Diagnosis/symptom? @ -Gastroenteritis, chest pain Acute, or Chronic, or Acute on Chronic? @ -Acute Uncomplicated (without systemic symptoms) or Complicated (systemic symptoms)? @ -Uncomplicated Side effects of treatment? @ -No Exacerbation, Progression, or Severe Exacerbation? @ -No Poses a threat to life or bodily function? How? (Chest pain, [place], [place], pneumonia, PE, COPD, DKA, ARF, appy, cholecystitis, CVA, Diverticulitis, Homicidal, Suicidal, threat to staff... and all critical care pts) @ -Yes, chest pain. - Lab Data Result diagrams: 02/02/23 16:53 02/02/23 16:53 Lab Results 02/02/23 02/02/23 02/02/23 Range/Units 16:53 16:53 18:15 WBC 8.2 (3.8-10.6) k/uL RBC 4.36 (3.80-5.40) m/uL Hgb 14.1 (11.4-16.0) gm/dL Hct 40.5 (34.0-46.0) % MCV 92.9 (80.0-100.0) fL MCH 32.2 (25.0-35.0) pg MCHC 34.7 (31.0-37.0) g/dL RDW 11.9 (11.5-15.5) % Plt Count 205 (150-450) k/uL MPV 7.3 Neutrophils % 69 % Lymphocytes % 20 % Monocytes % 6 % Eosinophils % 2 % Basophils % 1 % Neutrophils # 5.7 (1.3-7.7) k/uL Lymphocytes # 1.7 (1.0-4.8) k/uL Monocytes # 0.5 (0-1.0) k/uL Eosinophils # 0.1 (0-0.7) k/uL Basophils # 0.1 (0-0.2) k/uL Sodium 129 L (137-145) mmol/L Potassium 4.4 (3.5-5.1) mmol/L Chloride 93 L (98-107) mmol/L Carbon Dioxide 26 (22-30) mmol/L Anion Gap 10 mmol/L BUN 17 (7-17) mg/dL Creatinine 1.01 (0.52-1.04) mg/dL Est GFR (CKD-EPI)AfAm 65 (>60 ml/min/1.73 sqM) Est GFR (CKD-EPI)NonAf 57 (>60 ml/min/1.73 sqM) Glucose 94 (74-99) mg/dL Calcium 9.7 (8.4-10.2) mg/dL Total Bilirubin 0.7 (0.2-1.3) mg/dL AST 24 (14-36) U/L ALT 8 (4-34) U/L Alkaline Phosphatase 43 (38-126) U/L Total Protein 7.3 (6.3-8.2) g/dL Albumin 4.4 (3.5-5.0) g/dL Amylase 91 (30-110) U/L Lipase 302 H (23-300) U/L Urine Color Light Yellow Urine Appearance Clear (Clear) Urine pH 6.5 (5.0-8.0) Ur Specific [place] 1.006 (1.001-1.035) Urine Protein Negative (Negative) Urine Glucose (UA) Negative (Negative) Urine Ketones Negative (Negative) Urine Blood Negative (Negative) Urine Nitrite Negative (Negative) Urine Bilirubin Negative (Negative) Urine Urobilinogen <2.0 (<2.0) mg/dL Ur Leukocyte Esterase Small H (Negative) Urine RBC <1 (0-5) /hpf Urine WBC 4 (0-5) /hpf Ur Squamous Epith Cells <1 (0-4) /hpf Urine Bacteria Rare H (None) /hpf Urine Mucus Rare H (None) /hpf - EKG Data EKG Comments: EKG shows a sinus rhythm at 76 per minute without acute ST or T-wave changes. TN 179, QRS 85, QT/QTc 366/396. Disposition Clinical Impression: Gastroenteritis, Chest pain Disposition: ADMITTED IP TO THIS HOSP Condition: Good Referrals: Mark Farley MD [Primary Care Provider] - 1-2 days Time of Disposition: 19:35
[2023-02-02 17:21] LABS: Basophils # (A) 0.1 k/uL (0-0.2); Basophils % (A) 1 %; Eosinophils # (A) 0.1 k/uL (0-0.7); Eosinophils % (A) 2 %; HCT 40.5 % (34.0-46.0); HGB 14.1 gm/dL (11.4-16.0); Lymphocytes # (A) 1.7 k/uL (1.0-4.8); Lymphocytes % (A) 20 %; MCH 32.2 pg (25.0-35.0); MCHC 34.7 g/dL (31.0-37.0); MCV 92.9 fL (80.0-100.0); Mean Platelet Volume 7.3; Monocytes # (A) 0.5 k/uL (0-1.0); Monocytes % (A) 6 %; Neutrophils # (A) 5.7 k/uL (1.3-7.7); Neutrophils % (A) 69 %; Platelet Count 205 k/uL (150-450); RBC 4.36 m/uL (3.80-5.40); RDW 11.9 % (11.5-15.5); WBC 8.2 k/uL (3.8-10.6)
[2023-02-02 17:35] LABS: ALT 8 U/L (4-34); AST 24 U/L (14-36); African American GFR (CKD) 65 (>60 ml/min/1.73 sqM); Albumin 4.4 g/dL (3.5-5.0); Alkaline Phosphatase 43 U/L (38-126); Amylase 91 U/L (30-110); Anion Gap 10 mmol/L; Blood Urea Nitrogen 17 mg/dL (7-17); Calcium 9.7 mg/dL (8.4-10.2); Carbon Dioxide 26 mmol/L (22-30); Chloride 93 mmol/L (98-107); Glucose 94 mg/dL (74-99); Lipase 302 U/L (23-300); Non-African American GFR(CKD) 57 (>60 ml/min/1.73 sqM); Potassium 4.4 mmol/L (3.5-5.1); Sodium 129 mmol/L (137-145); Total Bilirubin 0.7 mg/dL (0.2-1.3); Total Protein 7.3 g/dL (6.3-8.2)
--- NOTE | 2023-02-02 18:01 | CT ---
EXAMINATION TYPE: CT abdomen pelvis wo con DATE OF EXAM: 02/02/2023 COMPARISON: 11/22/2011 HISTORY: diarrhea CT DLP: 246.3 mGycm Examination of the solid and hollow viscera is limited given the lack of contrast. FINDINGS: LUNG BASES: No evidence for nodule. No evidence for infiltrate. LIVER/GB: Gallbladder surgically absent. No space-occupying hepatic lesion. PANCREAS: No pancreatic mass identified. No inflammatory process seen. SPLEEN: No evidence for splenomegaly. No intrasplenic lesions seen. ADRENALS: No adrenal nodules identified. No evidence for thickening. KIDNEYS: Lower pole right renal cyst measures 2.6 cm. No nephrolithiasis. No hydronephrosis. BOWEL: Appendix has a normal appearance. No evidence of bowel obstruction. Distal small bowel wall th ickening may reflect enteritis. Lymph nodes: No evidence for adenopathy greater than 1 cm. Abdominal aorta: Atheromatous changes seen. No evidence for aneurysm. Genital organs: No significant abnormality. Other: No significant abnormality. IMPRESSION: CORRELATE FOR ENTERITIS.
[2023-02-02] MEDS ORDERED: hydrALAZINE HCL 20 MG/ML 1 ML VIAL IVP STA (18:26)
[2023-02-02 18:27] LABS: Appearance,Urine Clear (Clear); Bacteria,Urine Rare /hpf; Bilirubin,Urine Negative (Negative); Blood,Urine Negative (Negative); Color,Urine Light Yellow; Glucose,Urine (UA) Negative (Negative); Ketones,Urine Negative (Negative); Leukocyte Esterase,Urine Small (Negative); Mucus,Urine Rare /hpf; Nitrite,Urine Negative (Negative); PH, Urine 6.5 (5.0-8.0); Protein,Urine Negative (Negative); RBC,Urine <1 /hpf (0-5); Specific Gravity,Urine 1.006 (1.001-1.035); Squamous Epithelial Cell,Urine <1 /hpf (0-4); Urobilinogen,Urine <2.0 mg/dL (<2.0); WBC,Urine 4 /hpf (0-5)
[2023-02-02] MEDS ORDERED: PROCHLORPERAZINE INJ 10 MG/2 ML VIAL IVP STA (18:38)
[2023-02-02] MEDS ORDERED: ACETAMINOPHEN TAB 325 MG TAB PO PRN (19:40)
[2023-02-02] MEDS ORDERED: NALOXONE 0.4 MG/ML 1 ML VIAL IV PRN (19:40)
[2023-02-02] MEDS ORDERED: HYDROmorphone 1 MG/ML 1 ML SYRINGE IVP PRN (19:40)
[2023-02-02] MEDS ORDERED: PROCHLORPERAZINE 5 MG TAB PO PRN (19:40)
[2023-02-02] MEDS ORDERED: IBUPROFEN 400 MG TAB PO PRN (19:40)
[2023-02-02] MEDS ORDERED: HYDROmorphone 0.5 MG/0.5 ML SYRINGE IVP PRN (19:40)
[2023-02-02] MEDS: SODIUM CHLORIDE 0.9% 1,000 ML IV SCH (20:00)
[2023-02-03] MEDS: ALPRAZolam 0.25 MG TAB PO PRN ×3 (01:40→21:40)
[2023-02-03] MEDS: CARBIDOPA-LEVODOPA 25-100 MG 1 EACH TAB PO SCH ×3 (07:49→20:36)
[2023-02-03] MEDS: PROPRANOLOL 20 MG TAB PO SCH ×2 (07:49→20:35)
--- NOTE | 2023-02-03 09:35 | P.HPIM ---
History of Present Illness This is 72 years past medical history of hypertension and hyperlipidemia Patient international he came to the hospital because of her diarrhea and abdominal cramps. Her diarrhea she had it last Friday about 5 days ago, she had it for 1.5 days and then stopped but cramps continued, was about 8/10 on the presentation. Stopped yesterday and currently she denies any abdominal pain/cramps. No diarrhea, no bowel movement since admission. She has some nausea but no vomiting. She denies chest pain or dyspnea. No neurological symptoms like headache dizziness weakness or numbness. She denies any urinary symptoms. Yesterday after they give her medicine to lower her blood pressure she states that she had chest pain in the middle of the chest nonradiating that lasted for a couple hours and then stopped. Currently she denies chest pain dyspnea or any other symptoms. But she looks weak and lethargic. Blood pressure stable Doses, other CBC and BMP is unremarkable except for mildly low sodium and 129 Not elevated. Troponin is negative. However 30 troponin this morning was slightly elevated at 0.37 Urine analysis is negative for infection. CT of the abdomen and pelvis: Correlate for enteritis as there is report of dist al small bowel wall thickening EKG: Normal sinus rhythm at 76 mild T-wave inversion in V1 and V2 and aVL seen in [facility] with consult to procurement inspector Review of Systems Review of systems CONSTITUTIONAL: No fever, no malaise, no fatigue. HEENT: No recent visual problems or hearing problems. Denied any sore throat. CARDIOVASCULAR: No orthopnea, PND, no palpitations, no syncope. PULMONARY: No shortness of breath, no cough, no hemoptysis. GASTROINTESTINAL: No diarrhea, no nausea, no vomiting, no abdominal pain. Normoactive bowel sounds. NEUROLOGICAL: No headaches, no weakness, no numbness. HEMATOLOGICAL: Denies any bleeding or petechiae. GENITOURINARY: Denies any burning micturition, frequency, or urgency. MUSCULOSKELETAL/RHEUMATOLOGICAL: Denies any joint pain, swelling, or any muscle pain. ENDOCRINE: Denies any polyuria or polydipsia. Past Medical History Past Medical History: Hyperlipidemia, Hypertension Additional Past Medical History / Comment(s): parkinsons History of Any Multi-Drug Resistant Organisms: None Reported Past Surgical History: Cholecystectomy, Hysterectomy Additional Past Surgical History / Comment(s): cyst removed from right breast at age 18 Past Anesthesia/Blood Transfusion Reactions: No Reported Reaction Past Psychological History: Anxiety Smoking Status: Never smoker Past Alcohol Use History: None Reported Past Drug Use History: None Reported Medications and Allergies Home Medications Medication Instructions Recorded Confirmed Type ALPRAZolam [Xanax] 0.25 mg PO TID PRN 10/14/20 02/02/23 History Aspirin EC [Ecotrin Low Dose] 81 mg PO DAILY 10/14/20 02/02/23 History Multivitamins, Thera [Multivitamin 1 tab PO DAILY 10/14/20 02/02/23 History (formulary)] Simvastatin [Zocor] 20 mg PO HS 10/14/20 02/02/23 History Carbidopa-Levodopa 25-100 mg 1 tab PO TID 10/02/22 02/02/23 History [Sinemet 25-100] Cranberry Fruit Extract [Cranberry] 500 mg PO DAILY 10/02/22 02/02/23 History Ondansetron [Zofran] 4 mg PO Q8H PRN 10/02/22 02/02/23 History Pantoprazole Sodium [Protonix] 40 mg PO DAILY 10/02/22 02/02/23 History Propranolol [Inderal] 20 mg PO BID 10/02/22 02/02/23 History Allergies Allergy/AdvReac Type Severity Reaction Status Date / Time levofloxacin [From Levaquin] AdvReac Nausea & Verified 02/02/23 19:59 Vomiting & Shaking Physical Exam Vitals: Vital Signs Temp Pulse Pulse Resp BP BP Pulse Ox 02/03/23 02:00 97.3 F L 78 18 136/71 98 02/02/23 23:00 97.4 F L 69 15 136/71 98 02/02/23 21:10 77 116/51 96 02/02/23 20:30 133/59 02/02/23 20:10 133/59 02/02/23 20:00 90 127/53 98 02/02/23 19:30 90 135/62 100 02/02/23 19:10 108 H 156/80 99 02/02/23 18:05 98.3 F 68 19 203/101 100 02/02/23 16:03 98.1 F 71 18 178/93 100 Intake and Output 08/13/23 08/13/23 08/14/23 14:59 22:59 06:59 Other: Voiding Method Toilet # Voids 0 0 Weight 46.266 kg GENERAL: The patient is alert and oriented x3, not in any acute distress. Well developed, well nourished. HEENT: Pupils are round and equally reacting to light. EOMI. No scleral icterus. No conjunctival pallor. Normocephalic, atraumatic. No pharyngeal erythema. No thyromegaly. CARDIOVASCULAR: S1 and S2 present. No murmurs, rubs, or gallops. PULMONARY: Chest is clear to auscultation, no wheezing , no crackles. ABDOMEN: Soft, nontender, nondistended, normoactive bowel sounds. No palpable organomegaly. MUSCULOSKELETAL: No joint swelling or deformity. EXTREMITIES: No cyanosis, clubbing, or pedal edema. NEUROLOGICAL: Gross neurological examination did not reveal any focal deficits. SKIN: No rashes. no petechiae. Results CBC & Chem 7: 02/02/23 16:53 02/02/23 16:53 Labs: Abnormal Lab Results - Last 24 Hours (Table) 02/02/23 02/02/23 02/03/23 Range/Units 16:53 18:15 01:38 Sodium 129 L (137-145) mmol/L Chloride 93 L (98-107) mmol/L Troponin I 0.037 H* (0.000-0.034) ng/mL Lipase 302 H (23-300) U/L Ur Leukocyte Esterase Small H (Negative) Urine Bacteria Rare H (None) /hpf Urine Mucus Rare H (None) /hpf Thrombosis Risk Factor Assmnt - Choose All That Apply Any of the Below Risk Factors Present?: No Other Risk Factors: Yes Each Risk Factor Represents 2 Points: Age 61-74 years Other congenital or acquired thrombophilia - If yes, enter type in comment: No Thrombosis Risk Factor Assessment Total Risk Factor Score: 2 Thrombosis Risk Factor Assessment Level: Low Risk Assessment and Plan Assessment: Transient chest pain for 2 hours with mildly elevated troponin Abdominal pain and diarrhea suspicious for acute gastroenteritis. Resolved Dehydration secondary to above Chest pain, mostly musculoskeletal, rule out cardiac causes Hypertension Hyperlipidemia Plan: Normal saline Continue with aspirin Check echocardiogram Cardiology consult Labs and medication were reviewed.. Continue same treatment. Continue with symptomatic treatment. Resume home medication. Monitor labs and vitals. DVT and GI prophylaxis. Further recommendations as per clinical course of the patient DVT prophylaxis: Subcutaneous heparin GI Prophylaxis: Pepcid PT/OT: Pending Prognosis is guarded
--- NOTE | 2023-02-03 09:42 | P.CRDCN ---
History of Present Illness History of present illness: HISTORY OF PRESENT ILLNESS: This is a 72-year-old female with a past medical history significant for hypertension and hyperlipidemia. Patient follows in the office with Dr. Hawkins. We have been asked to see the patient in consultation for chest pain. Patient examined at the bedside. Patient presented to the hospital with a chief complaint of abdominal pain. Patient states she has been experiencing diarrhea for 2-3 days last week. She also reports nausea but no vomiting. She reports significant lower quadrant abdominal pain which prompted her to come to the emergency room. When the patient presented to the emergency room her blood pressure was 179/93. Repeat blood pressure obtained was 203/101. The patient received IV hydralazine in the emergency room. She states after receiving a dose of that she began to have chest pain in the middle of her chest. She was given Dilaudid which resolved her pain. She states she has had no further episodes of chest pain since that time. Her blood pressure this morning is stable. * EKG reveals sinus mechanism with no signs of acute ischemia * CT abdomen and pelvis: Correlate for enteritis * Laboratory data: WBC 8.2. Hemoglobin 14.1. Platelet count 205. Sodium 129. Potassium 4.4. BUN 17. Creatinine 1.01. Troponin 0.012. 0.020. 0.037. Lipase 302. * Current home cardiac medications include propanolol 20 mg twice a day, aspirin 81 mg daily, and Zocor 20 mg at night REVIEW OF SYSTEMS: At the time of my exam: CONSTITUTIONAL: Denies fever or chills. HEENT: Denies blurred vision, vision changes, or eye pain. Denies hemoptysis CARDIOVASCULAR: Denies chest pain. Denies orthopnea. Denies PND. Denies palpitations RESPIRATORY: Denies shortness of breath. GASTROINTESTINAL: Denies abdominal pain. Denies nausea or vomiting. HEMATOLOGIC: Denies bleeding disorders. GENITOURINARY: Denies any blood in urine. SKIN: Denies pruitis. Denies rash. PHYSICAL EXAM: VITAL SIGNS: Reviewed. GENERAL: Well-developed in no acute distress. HEENT: Head is normocephalic. Pupils are equal, round. Sclerae anicteric. Mucous membranes of the mouth are moist. Neck supple. No JVD or thyromegaly LUNGS: Respirations even and unlabored. Lungs essentially clear to auscultation bilaterally. HEART: Regular rate and rhythm. S1 and S2 heard. ABDOMEN: Soft. Nondistended. Nontender. EXTREMITIES: Normal range of motion. No clubbing or cyanosis. Peripheral pulses intact. No lower extremity edema NEUROLOGIC: Awake and alert. Oriented x 3. ASSESSMENT: Abdominal pain Diarrhea 3 days Elevated lipase Hyponatremia Chest pain, atypical Minimally elevated troponin of unclear significance History of hypertension History of hyperlipidemia PLAN: Resume home cardiac medications Obtain additional troponin level Obtain 2-D echo to assess cardiac structure and function If repeat troponin is negative, no further cardiac workup will be necessary Further recommendations pending patient's course Nurse practitioner note has been reviewed by physician. Signing provider agrees with the documented findings, assessment, and plan of care. Past Medical History Past Medical History: Hyperlipidemia, Hypertension Additional Past Medical History / Comment(s): parkinsons History of Any Multi-Drug Resistant Organisms: None Reported Past Surgical History: Cholecystectomy, Hysterectomy Additional Past Surgical History / Comment(s): cyst removed from right breast at age 18 Past Anesthesia/Blood Transfusion Reactions: No Reported Reaction Past Psychological History: Anxiety Smoking Status: Never smoker Past Alcohol Use History: None Reported Past Drug Use History: None Reported Medications and Allergies Home Medications Medication Instructions Recorded Confirmed Type ALPRAZolam [Xanax] 0.25 mg PO TID PRN 10/14/20 02/02/23 History Aspirin EC [Ecotrin Low Dose] 81 mg PO DAILY 10/14/20 02/02/23 History Multivitamins, Thera [Multivitamin 1 tab PO DAILY 10/14/20 02/02/23 History (formulary)] Simvastatin [Zocor] 20 mg PO HS 10/14/20 02/02/23 History Carbidopa-Levodopa 25-100 mg 1 tab PO TID 10/02/22 02/02/23 History [Sinemet 25-100] Cranberry Fruit Extract [Cranberry] 500 mg PO DAILY 10/02/22 02/02/23 History Ondansetron [Zofran] 4 mg PO Q8H PRN 10/02/22 02/02/23 History Pantoprazole Sodium [Protonix] 40 mg PO DAILY 10/02/22 02/02/23 History Propranolol [Inderal] 20 mg PO BID 10/02/22 02/02/23 History Allergies Allergy/AdvReac Type Severity Reaction Status Date / Time levofloxacin [From Levaquin] AdvReac Nausea & Verified 02/02/23 19:59 Vomiting & Shaking Physical Exam Vitals: Vital Signs Temp Pulse Pulse Resp BP BP Pulse Ox 02/03/23 07:00 98.2 F 80 16 129/67 98 02/03/23 02:00 97.3 F L 78 18 136/71 98 02/02/23 23:00 97.4 F L 69 15 136/71 98 02/02/23 21:10 77 116/51 96 02/02/23 20:30 133/59 02/02/23 20:10 133/59 02/02/23 20:00 90 127/53 98 02/02/23 19:30 90 135/62 100 02/02/23 19:10 108 H 156/80 99 02/02/23 18:05 98.3 F 68 19 203/101 100 02/02/23 16:03 98.1 F 71 18 178/93 100 Intake and Output 02/02/23 02/03/23 02/03/23 22:59 06:59 14:59 Other: Voiding Method Toilet # Voids 0 0 Weight 46.266 kg Results 02/02/23 16:53 02/02/23 16:53 Cardiac Enzymes 02/02/23 02/02/23 02/02/23 Range/Units 16:53 19:28 22:27 AST 24 (14-36) U/L Troponin I <0.012 0.020 (0.000-0.034) ng/mL 02/03/23 Range/Units 01:38 AST (14-36) U/L Troponin I 0.037 H* (0.000-0.034) ng/mL CBC 02/02/23 Range/Units 16:53 WBC 8.2 (3.8-10.6) k/uL RBC 4.36 (3.80-5.40) m/uL Hgb 14.1 (11.4-16.0) gm/dL Hct 40.5 (34.0-46.0) % Plt Count 205 (150-450) k/uL Comprehensive Metabolic Panel 02/02/23 Range/Units 16:53 Sodium 129 L (137-145) mmol/L Potassium 4.4 (3.5-5.1) mmol/L Chloride 93 L (98-107) mmol/L Carbon Dioxide 26 (22-30) mmol/L BUN 17 (7-17) mg/dL Creatinine 1.01 (0.52-1.04) mg/dL Glucose 94 (74-99) mg/dL Calcium 9.7 (8.4-10.2) mg/dL AST 24 (14-36) U/L ALT 8 (4-34) U/L Alkaline Phosphatase 43 (38-126) U/L Total Protein 7.3 (6.3-8.2) g/dL Albumin 4.4 (3.5-5.0) g/dL Current Medications Generic Name Dose Route Start Last Admin Trade Name Freq PRN Reason Stop Dose Admin Acetaminophen 650 mg 02/02/23 19:40 Acetaminophen Tab 325 Mg Tab PO Q6HR PRN Mild Pain or Fever > 100.5 Alprazolam 0.25 mg 02/03/23 01:17 02/03/23 01:40 Alprazolam 0.25 Mg Tab PO 0.25 mg TID PRN Administration Anxiety Aspirin 81 mg 02/03/23 09:00 Aspirin 81 Mg PO DAILY [facility] Atorvastatin Calcium 10 mg 02/03/23 21:00 Atorvastatin 10 Mg Tab PO HS [facility] Carbidopa/Levodopa 1 each 02/03/23 09:00 02/03/23 07:49 Carbidopa-Levodopa 25-100 Mg 1 Each Tab PO 1 each TID MISHA Administration Hydromorphone HCl 0.5 mg 02/02/23 19:40 Hydromorphone 0.5 Mg/0.5 Ml Syringe IVP Q3HR PRN Moderate Pain (Scale 4 to 6) Hydromorphone HCl 1 mg 02/02/23 19:40 02/02/23 20:01 Hydromorphone 1 Mg/Ml 1 Ml Syringe IVP 1 mg Q3HR PRN Administration Severe Pain (Scale 7 to 10) Sodium Chloride 1,000 mls @ 75 mls/hr 02/02/23 19:45 02/02/23 20:00 Saline 0.9% IV 75 mls/hr .[id number] MISHA Administration Ibuprofen 400 mg 02/02/23 19:40 Ibuprofen 400 Mg Tab PO Q6HR PRN Mild Pain or Fever > 100.5 Multivitamins 1 each 02/03/23 09:00 Multivitamins, Thera 1 Each Tab PO DAILY [facility] Naloxone HCl 0.2 mg 02/02/23 19:40 Naloxone 0.4 Mg/Ml 1 Ml Vial IV Q2M PRN Opioid Reversal Pantoprazole Sodium 40 mg 02/03/23 07:30 Pantoprazole 40 Mg Tablet PO [id number] MISHA Prochlorperazine Maleate 5 mg 02/02/23 19:40 Prochlorperazine 5 Mg Tab PO Q8HR PRN Nausea And Vomiting Propranolol HCl 20 mg 02/03/23 09:00 02/03/23 07:49 Propranolol 20 Mg Tab PO 20 mg BID [facility] Administration Intake and Output 02/02/23 02/03/23 02/03/23 22:59 06:59 14:59 Other: Voiding Method Toilet # Voids 0 0 Weight 46.266 kg 02/02/23 16:53 02/02/23 16:53
[2023-02-03] MEDS: MULTIVITAMINS, THERA 1 EACH TAB PO SCH (10:41)
[2023-02-03] MEDS: ASPIRIN 81 MG PO SCH (10:41)
[2023-02-03] MEDS: PANTOPRAZOLE 40 MG TABLET PO SCH (10:41)
[2023-02-03] MEDS: SODIUM CHLORIDE 0.9% 1,000 ML IV SCH (10:42)
--- NOTE | 2023-02-03 11:55 | CA ---
Transthoracic Echo Report Name: Elodia Cobb Age: 72 Gender: F : 1950 Exam Date: 02/03/2023 08:45 Exam Location: [place] Echo Ht (in): 65 Wt (lb): 102 Ordering Physician: Kaykay Kruse Attending/Referring Phys: [id number], Aixa Driller Multiple Spindle Francois Wright Procedure CPT: Indications: LV function, CP Cardiac Hx: Technical Quality: Fair Contrast 1: Total Dose (mL): Contrast 2: Total Dose (mL): MEASUREMENTS (Male / Female) Normal Values 2D ECHO RV Internal Dim ED PLAX 2.3 cm LVOT Diameter 1.9 cm Aortic Root Diameter 2.7 cm LA Systolic Diameter LX 1.9 cm 3.0 - 4.0 / 2.7 - 3.8 cm LV Diastolic Volume MOD BP 21.4 cm??? 67 - 155 / 56 - 104 cm??? LV Systolic Volume MOD BP 5.5 cm??? 22 - 58 / 19 - 49 cm??? LV Ejection Fraction MOD BP 74.3 % >= 55 % LV Cardiac Index MOD BP 825.6 cm???/min???m??? LV Diastolic Volume MOD 4C 22.9 cm??? LV Systolic Volume MOD 4C 6.3 cm??? LV Ejection Fraction MOD 4C 72.7 % LV Cardiac Index MOD 4C 863.0 cm???/min???m??? LV Diastolic Length 4C 5.0 cm LV Systolic Length 4C 4.4 cm LV Diastolic Volume MOD 2C 18.9 cm??? LV Systolic Volume MOD 2C 4.2 cm??? LV Ejection Fraction MOD 2C 78.0 % LV Cardiac Index MOD 2C 766.6 cm???/min???m??? LV Diastolic Length 2C 4.7 cm LV Systolic Length 2C 3.6 cm LA Volume 17.0 cm??? 18 - 58 / 22 - 52 cm??? Ascending Aorta Diameter 2.5 cm DOPPLER AV Peak Velocity 111.7 cm/s AV Peak Gradient 5.0 mmHg AV Mean Velocity 84.0 cm/s AV Mean Gradient 3.1 mmHg AV Velocity Time Integral 27.3 cm LVOT Peak Velocity 65.5 cm/s LVOT Peak Gradient 1.7 mmHg AV Area Cont Eq pk 1.6 cm??? MV Peak Velocity 82.1 cm/s MV Peak Gradient 2.7 mmHg MV Mean Velocity 43.9 cm/s MV Mean Gradient 1.0 mmHg MV Velocity Time Integral 18.2 cm MR Peak Velocity 189.6 cm/s MR Peak Gradient 14.4 mmHg Mitral E Point Velocity 86.4 cm/s Mitral A Point Velocity 76.7 cm/s Mitral E to A Ratio 1.1 MV Deceleration Time 324.5 ms MV E' Velocity 5.2 cm/s Mitral E to MV E' Ratio 16.6 TR Peak Velocity 292.5 cm/s TR Peak Gradient 34.2 mmHg Right Ventricular Systolic Press 39.7 mmHg PV Peak Velocity 114.3 cm/s PV Peak Gradient 5.2 mmHg FINDINGS Left Ventricle Normal LV size and wall motion. Left ventricular ejection fraction is estimated at 55-60 %. Right Ventricle Normal right ventricular size. RVSP= 29mmhg. Right Atrium Normal right atrial size. Left Atrium Normal left atrial size. Mitral Valve Structurally normal mitral valve. No mitral regurgitation. Aortic Valve Trileaflet aortic valve. No aortic valve stenosis or regurgitation. Tricuspid Valve Structurally normal tricuspid valve. Pulmonic Valve Pulmonic valve not well visualized. mild to moderate PI. Pericardium Small posterio/medial pericardial effusion. Aorta Normal size aortic root and proximal ascending aorta. CONCLUSIONS Normal LV systolic function Previewed by: Dr. Guy Castillo MD (Electronically Signed) Final Date: 03 February 2023 11:55
[2023-02-03 14:16] VITALS: BMI 16.5
[2023-02-03] MEDS ORDERED: ATORVASTATIN 10 MG TAB PO SCH (21:00)
[2023-02-04] MEDS: SODIUM CHLORIDE 0.9% 1,000 ML IV SCH (02:22)
[2023-02-04] MEDS: PANTOPRAZOLE 40 MG TABLET PO SCH (06:28)
[2023-02-04] MEDS: PROPRANOLOL 20 MG TAB PO SCH (08:54)
[2023-02-04] MEDS: ASPIRIN 81 MG PO SCH (08:54)
[2023-02-04] MEDS: MULTIVITAMINS, THERA 1 EACH TAB PO SCH (08:54)
[2023-02-04] MEDS: CARBIDOPA-LEVODOPA 25-100 MG 1 EACH TAB PO SCH (08:54)
[2023-02-04] MEDS ORDERED: amLODIPine 5 MG TAB PO SCH (09:00)
[2023-02-04 09:11] LABS: Basophils # (A) 0.06 X 10*3/uL (0.00-0.10); Basophils % (A) 0.7 %; Eosinophils # (A) 0.04 X 10*3/uL (0.04-0.35); Eosinophils % (A) 0.5 %; HCT 37.5 % (37.2-46.3); HGB 12.3 d/dL (12.0-15.0); Lymphocytes # (A) 1.74 X 10*3/uL (0.90-5.00); MCH 30.8 pg (27.0-32.0); MCHC 32.8 d/dL (32.0-37.0); MCV 93.8 FL (80.0-97.0); Mean Platelet Volume 9.7 FL (9.5-12.2); Monocytes # (A) 0.73 X 10*3/uL (0.20-1.00); Monocytes % (A) 8.4 %; NRBC Per 100 WBC 0 X 10*3/uL (0.00-0.01); Neutrophils # (A) 6.11 X 10*3/uL (1.80-7.70); Neutrophils % (A) 70.1 %; Platelet Count 210 X 10*3/uL (140-440); RDW 11.9 % (11.5-14.5); WBC 8.71 X 10*3/uL (4.50-10.00)
--- NOTE | 2023-02-04 10:24 | P.PN ---
Subjective HISTORY OF PRESENT ILLNESS: This is a 72-year-old female with a past medical history significant for hypertension and hyperlipidemia. Patient follows in the office with Dr. Hawkins. We have been asked to see the patient in consultation for chest pain. Patient examined at the bedside. Patient presented to the hospital with a chief complaint of abdominal pain. Patient states she has been experiencing diarrhea for 2-3 days last week. She also reports nausea but no vomiting. She reports significant lower quadrant abdominal pain which prompted her to come to the emergency room. When the patient presented to the emergency room her blood pressure was 179/93. Repeat blood pressure obtained was 203/101. The patient received IV hydralazine in the emergency room. She states after receiving a dose of that she began to have chest pain in the middle of her chest. She was given Dilaudid which resolved her pain. She states she has had no further episodes of chest pain since that time. Her blood pressure this morning is stable. * EKG reveals sinus mechanism with no signs of acute ischemia * CT abdomen and pelvis: Correlate for enteritis * Laboratory data: WBC 8.2. Hemoglobin 14.1. Platelet count 205. Sodium 129. Potassium 4.4. BUN 17. Creatinine 1.01. Troponin 0.012. 0.020. 0.037. Lipase 302. * Current home cardiac medications include propanolol 20 mg twice a day, aspirin 81 mg daily, and Zocor 20 mg at night 02/04/2023 Patient examined this morning at the bedside. Patient denies chest pain or pressure. She denies shortness of breath. Patient states her abdominal pain has improved. She is tolerating oral diet. Echocardiogram obtained revealing normal LV systolic function with no wall motion abnormalities. PHYSICAL EXAM: VITAL SIGNS: Reviewed. GENERAL: Well-developed in no acute distress. HEENT: Head is normocephalic. Pupils are equal, round. Sclerae anicteric. Mucous membranes of the mouth are moist. Neck supple. No JVD or thyromegaly LUNGS: Respirations even and unlabored. Lungs essentially clear to auscultation bilaterally. HEART: Regular rate and rhythm. S1 and S2 heard. ABDOMEN: Soft. Nondistended. Nontender. EXTREMITIES: Normal range of motion. No clubbing or cyanosis. Peripheral pulses intact. No lower extremity edema NEUROLOGIC: Awake and alert. Oriented x 3. ASSESSMENT: Abdominal pain Diarrhea 3 days Elevated lipase Hyponatremia Chest pain, atypical Minimally elevated troponin of unclear significance History of hypertension History of hyperlipidemia PLAN: Continue current cardiac medications Possible outpatient stress testing Patient is stable for discharge home today from a cardiac standpoint Patient is to follow up outpatient with Dr. Hawkins Nurse practitioner note has been reviewed by physician. Signing provider agrees with the documented findings, assessment, and plan of care. Objective - Vital Signs Vital signs: Vital Signs Temp 97.9 F 02/04/23 07:07 Pulse 68 02/04/23 07:07 Resp 17 02/04/23 07:07 BP 170/79 02/04/23 07:07 Pulse Ox 96 02/04/23 07:07 FiO2 Intake & Output 02/03/23 02/04/23 02/04/23 18:59 06:59 18:59 Intake Total 480 Balance 480 Weight 46.266 kg Intake: Oral 480 Other: Voiding Method Toilet Toilet # Voids 1 2 - Labs CBC & Chem 7: 02/04/23 06:04 02/02/23 16:53 Labs: Abnormal Lab Results - Last 24 Hours (Table) 02/04/23 Range/Units 06:04 RBC 4.00 L (4.10-5.20) X 10*6/uL
[2023-02-04 12:10] LABS: BUN/Creat Ratio 12.56 Ratio (12.00-20.00); Blood Urea Nitrogen 11.3 mg/dL (9.0-27.0); Calcium 9.2 mg/dL (8.7-10.3); Carbon Dioxide 25.8 mmol/L (21.6-31.8); Chloride 98 mmol/L (96-109); Glucose 89 mg/dL (70-110); Potassium 4.1 mmol/L (3.5-5.5); Sodium 133 mmol/L (135-145)
[2023-02-04 14:39] VITALS: BP 136/68; PULSE 81; RESP 16; TEMP 98
--- NOTE | 2023-02-04 21:38 | P.DS ---
Providers Date of admission: 02/02/23 19:23 Attending physician: Nani Roberts Consults: 02/02/23 19:40 Consult Physician Urgent Consulting Provider: [facility] Consult Reason/Comments: chest pain Do you want consulting provider notified?: Yes Primary care physician: Mark Farley Hospital Course: Diagnoses: Transient chest pain for 2 hours with mildly elevated troponin Abdominal pain and diarrhea suspicious for acute gastroenteritis. Most likely viral infection. Resolved Dehydration secondary to above. Resolved Chest pain, mostly musculoskeletal, cardiac causes ruled out Hypertension Hyperlipidemia Hospital course: This is 72 years past medical history of hypertension and hyperlipidemia Patient international he came to the hospital because of her diarrhea and abdominal cramps. Her diarrhea she had it last Friday about 5 days ago, which is resolved since yesterday. Also patient has some chest pain which is evaluated by [facility] [employer] and cleared for discharge from yesterday. However we kept the patient for monitoring for another 24 hours. Today patient remains is stable, no chest pain, no abdominal pain, no diarrhea or vomiting. She tolerates diet well. The afternoon patient told the nurse she wants to be discharged as she was referred to go home today. Patient feels she is back to her baseline Her mild hyponatremia 129 improved 13 with normal saline. Evidence of infection is resolved and no need for antibiotics and symptoms improved, reportcalcitonin is negative as 0.04, CRP is normal less than 0.5 and ESR is 1, which help exclude inflammatory disease CT of the abdomen shows evidence of enteritis, which is most likely viral gastroenteritis. However patient was referred to GI service Lamar Schmidt for follow-up as an outpatient, patient informed and she agrees Patient denies any other new symptom Patient was cleared for discharge by [facility] [employer] Problems and management plan were discussed with the patient and he verbalized understanding and acceptance Patient was found stable and can be discharged home in guarded prognosis however he needs follow-up as an outpatient. Patient was instructed to follow up with PCP Dr. Farley within one week and patient agrees. Patient told me she has appointment with him on 02/21 that she intends to follow up with Patient was instructed to follow up with her [employer] of [employer] Dr. Hawkins in 1 week and with her neurologist Dr. Jimenez in 1-2 weeks for her history of Parkinson disease although it was not active issue during this hospitalization. Patient instructed to follow up with GI clinic as above Physical exam Gen: patient is a AAOx3, no distress CVS: S1-S2, RRR, no murmur Lungs: B/L CTA, no wheezing Abdomen: soft, no distention, no tenderness, positive bowel sounds Extremity: no leg edema or induration Time spent more than 35 minutes Patient Condition at Discharge: Good Plan - Discharge Summary Discharge Rx Participant: No New Discharge Prescriptions: New amLODIPine [Norvasc] 5 mg PO DAILY #30 tab Continue Simvastatin [Zocor] 20 mg PO HS Aspirin EC [Ecotrin Low Dose] 81 mg PO DAILY ALPRAZolam [Xanax] 0.25 mg PO TID PRN PRN Reason: Anxiety Ondansetron [Zofran] 4 mg PO Q8H PRN PRN Reason: Nausea Carbidopa-Levodopa 25-100 mg [Sinemet 25-100 mg] 1 tab PO TID Propranolol [Inderal] 20 mg PO BID Multivitamins, Thera [Multivitamin (formulary)] 1 tab PO DAILY Pantoprazole Sodium [Protonix] 40 mg PO DAILY Cranberry Fruit Extract [Cranberry] 500 mg PO DAILY Discharge Medication List ALPRAZolam [Xanax] 0.25 mg PO TID PRN 10/14/20 [History] Aspirin EC [Ecotrin Low Dose] 81 mg PO DAILY 10/14/20 [History] Multivitamins, Thera [Multivitamin (formulary)] 1 tab PO DAILY 10/14/20 [History] Simvastatin [Zocor] 20 mg PO HS 10/14/20 [History] Carbidopa-Levodopa 25-100 mg [Sinemet 25-100 mg] 1 tab PO TID 10/02/22 [History] Cranberry Fruit Extract [Cranberry] 500 mg PO DAILY 10/02/22 [History] Ondansetron [Zofran] 4 mg PO Q8H PRN 10/02/22 [History] Pantoprazole Sodium [Protonix] 40 mg PO DAILY 10/02/22 [History] Propranolol [Inderal] 20 mg PO BID 10/02/22 [History] amLODIPine [Norvasc] 5 mg PO DAILY #30 tab 02/04/23 [Rx] Follow up Appointment(s)/Referral(s): Luke Hawkins DO [STAFF PHYSICIAN] - 1 Week (Possible outpatient stress testing) Mark Farley MD [Primary Care Provider] - 1-2 days Melanie Castillo MD [STAFF PHYSICIAN] - 2 Weeks (chrome tanner for your gasterenteritis you had it on admission to the hospital) Bhargav Jimenez MD [Medical Doctor] - 2 Weeks (your neurologist for your parkinson disease ) Activity/Diet/Wound Care/Special Instructions: heart healthy diet activity is restricted till you see your doctor Discharge Disposition: HOME SELF-CARE
== END 2023-02-04 15:34 | disposition home or self-care (01) ==
LOC: EC 15:57 → 6NMEDSUR 19:23
PROVIDERS: ADMIT Hospitalist; ATTEND Hospitalist
DX: R10.30 Lower abdominal pain, unspecified (principal); R19.7 Diarrhea, unspecified; R74.8 Abnormal levels of other serum enzymes; E87.1 Hypo-osmolality and hyponatremia; R07.89 Other chest pain; R77.8 Other specified abnormalities of plasma proteins; E86.0 Dehydration; I10 Essential (primary) hypertension; E78.5 Hyperlipidemia, unspecified; G20 Parkinson's disease; F41.9 Anxiety disorder, unspecified; Z79.82 Long term (current) use of aspirin; Z79.899 Other long term (current) drug therapy; Z88.1 Allergy status to other antibiotic agents
CPT/HCPCS: 96374; 96375; 99285; 36415; 93005; 93306; 80053; 80048; 85652; 82150; 83690; 84484 ×2; 85025 ×2; 86140; 81001; 84145; 74176; G0378 ×3; S0183; J0360; J0780; J2405; J1170

== ENCOUNTER → 2023-03-28 | Outpatient (CLI) | payer MEDICARE, OTHER | END | disposition home or self-care (01) | LOC: LABWHC1 11:31 | PROVIDERS: ATTEND Physician Assistant | DX: Z00.00 Encounter for general adult medical examination without abnormal findings (principal); G20.A1 Parkinson's disease without dyskinesia, without mention of fluctuations; G62.9 Polyneuropathy, unspecified | CPT/HCPCS: 36415; 82306; 82607; 84207 ==

== ENCOUNTER → 2023-07-17 | Outpatient (CLI) | payer MEDICARE, OTHER ==
--- NOTE | 2023-07-18 19:09 | MM ---
Reason for Exam: Screening (asymptomatic). Last mammogram was performed 1 year(s) and 10 month(s) ago. Patient History: Menarche at age 15. First Full-Term at age 22. Left ovary removed at age 51. Right ovary removed at age 51. Hysterectomy at age 51. Postmenopausal. Estrogen for 4 years, 7 months, from age 52 until age 56. 1967, Benign Excisional Biopsy on the right side. Risk Values: Macie 5 year model risk: 1.8%. NCI Lifetime model risk: 5.1%. Prior Study Comparison: 09/02/2018 Bilateral Screening Mammogram, [facility]. 06/28/2020 Bilateral Screening Mammogram, [facility]. 08/30/2021 Bilateral Screening Mammogram, [facility]. Tissue Density: The breast tissue is extremely dense which could obscure a lesion on mammography. Findings: Analyzed By CAD. Benign bilateral vascular calcifications. There is no suspicious group of microcalcifications or new suspicious mass in either breast. Overall Assessment: Benign, BI-RAD 2 Management: Screening Mammogram of both breasts in 1 year. . Patient should continue monthly self-breast exams. A clinical breast exam by your physician is recommended on an annual basis. This exam should not preclude additional follow-up of suspicious palpable abnormalities. Note on Macie scores and lifetime risk: 1. A Macie score greater than 3% is considered moderate risk. If this is the case, consider specialist referral to assess eligibility for a risk reducing agent. 2. If overall lifetime risk for the development of breast cancer is 20% or higher, the patient may qualify for future screening with alternating mammogram and breast MRI. Electronically signed and approved by: Rolando Rainey M.D. Radiologist
== END | disposition home or self-care (01) ==
LOC: RADMAMWWP 10:47
PROVIDERS: ATTEND Internal Medicine Geriatric Medicine
DX: Z12.31 Encounter for screening mammogram for malignant neoplasm of breast (principal); Z78.0 Asymptomatic menopausal state
CPT/HCPCS: 77063; 77067

== ENCOUNTER 2024-03-13 17:27 | Inpatient (IN) | payer MEDICARE, OTHER ==
--- NOTE | 2024-03-13 18:02 | ED ---
Nausea/Vomiting/Diarrhea HPI - General Chief complaint: Nausea/Vomiting/Diarrhea Stated complaint: Vomiting Time Seen by Provider: 03/13/24 17:47 Source: patient, RN notes reviewed Mode of arrival: ambulatory Limitations: no limitations - History of Present Illness Initial comments: 73-year-old female with history of hypertension and hyperlipidemia presenting for vomiting x 2 days. Patient states 2 days ago she took 2 MiraLAX for constipation. However after taking MiraLAX, she began to vomit. Vomiting has been persistent for the past 2 days. Patient has been able to tolerate orals, however has not been able to eat for 2 days. Reports she feels very dehydrated and would like some rehydration today. She also states she has only urinated 1 time in 2 days, denies urinary urgency, dysuria, or hematuria. Last bowel movement was yesterday and was normal. She does have a history of cholecystectomy and hysterectomy. Denies blood thinners. Denies sick contacts - Related Data Home Medications Medication Instructions Recorded Confirmed ALPRAZolam [Xanax] 0.25 mg PO TID PRN 10/14/20 02/02/23 Aspirin EC [Ecotrin Low Dose] 81 mg PO DAILY 10/14/20 02/02/23 Multivitamins, Thera [Multivitamin 1 tab PO DAILY 10/14/20 02/02/23 (formulary)] Simvastatin [Zocor] 20 mg PO HS 10/14/20 02/02/23 Carbidopa-Levodopa 25-100 mg 1 tab PO TID 10/02/22 02/02/23 [Sinemet 25-100 mg] Cranberry Fruit Extract [Cranberry] 500 mg PO DAILY 10/02/22 02/02/23 Ondansetron [Zofran] 4 mg PO Q8H PRN 10/02/22 02/02/23 Pantoprazole Sodium [Protonix] 40 mg PO DAILY 10/02/22 02/02/23 Propranolol [Inderal] 20 mg PO BID 10/02/22 02/02/23 Previous Rx's Medication Instructions Recorded amLODIPine [Norvasc] 5 mg PO DAILY #30 tab 02/04/23 Allergies Allergy/AdvReac Type Severity Reaction Status Date / Time levofloxacin [From Levaquin] AdvReac Nausea & Verified 03/13/24 17:38 Vomiting & Shaking Review of Systems ROS Statement: Those systems with pertinent positive or pertinent negative responses have been documented in the HPI. ROS Other: All systems not noted in ROS Statement are negative. Past Medical History Past Medical History: Hyperlipidemia, Hypertension Additional Past Medical History / Comment(s): parkinsons History of Any Multi-Drug Resistant Organisms: None Reported Past Surgical History: Cholecystectomy, Hysterectomy Additional Past Surgical History / Comment(s): cyst removed from right breast at age 18 Past Anesthesia/Blood Transfusion Reactions: No Reported Reaction Past Psychological History: Anxiety Smoking Status: Never smoker Past Alcohol Use History: None Reported Past Drug Use History: None Reported General Exam Limitations: no limitations General appearance: alert, in no apparent distress Head exam: Present: atraumatic, normocephalic, normal inspection Eye exam: Present: normal appearance, PERRL, EOMI. Absent: scleral icterus, conjunctival injection, periorbital swelling ENT exam: Present: normal exam, mucous membranes moist Respiratory exam: Present: normal lung sounds bilaterally. Absent: respiratory distress, wheezes, rales, rhonchi, stridor Cardiovascular Exam: Present: regular rate, normal rhythm, normal heart sounds. Absent: systolic murmur, diastolic murmur, rubs, gallop, clicks GI/Abdominal exam: Present: soft, normal bowel sounds. Absent: distended, tenderness, guarding, rebound, rigid Neurological exam: Present: alert, oriented X3 Psychiatric exam: Present: normal affect, normal mood Skin exam: Present: warm, dry, intact, normal color. Absent: rash Course Vital Signs 03/13/24 03/13/24 17:36 20:15 Temperature 98.1 F Pulse Rate 79 77 Respiratory 18 16 Rate Blood Pressure 120/61 124/56 O2 Sat by Pulse 98 99 Oximetry Medical Decision Making - Medical Decision Making Was pt. sent in by a medical professional or institution (, PA, TRANSFER PUMPER, urgent care, hospital, or long-term...) When possible be specific @ -No Did you speak to anyone other than the patient for history (EMS, parent, family, police, friend...)? What history was obtained from this source @ -No Did you review nursing and triage notes (agree or disagree)? Why? @ -I reviewed and agree with nursing and triage notes Were old charts reviewed (outside hosp., previous admission, EMS record, old EKG, old radiological studies, urgent care reports/EKG's, long-term records)? Report findings @ -No old charts were reviewed Differential Diagnosis (chest pain, altered mental status, abdominal pain women, abdominal pain men, vaginal bleeding, weakness, fever, dyspnea, syncope, headache, dizziness, GI bleed, back pain, seizure, CVA, palpatations, mental health, musculoskeletal)? @ -Differential Abdominal Pain Women: Appendicitis, Cholecystitis, diverticulosis, ischemic bowel, pancreatitis, hepatitis, UTI, gastroenteritis, AAA, incarcerated hernia, bowel obstruction, constipation, inflammatory bowel, hepatitis, peptic ulcer disease, splenic infarction, perforated viscus, vulvitis, ovarian torsion, PID, kidney stone, placenta abruption, this is not meant to be an all-inclusive list EKG interpreted by me (3pts min.). @ -As above X-rays interpreted by me (1pt min.). @ -KUB reveals partial or early complete small bowel obstruction, may be within proximal ileal region CT interpreted by me (1pt min.). @ -CT abdomen pelvis revealed small bowel obstruction with dilated air-fluid small bowel loops extending to the ileocecal valve with sonographic tranition in terminal ileum, RLL infiltrate U/S interpreted by me (1pt. min.). @ -None done What testing was considered but not performed or refused? (CT, X-rays, U/S, labs)? Why? @ -None What meds were considered but not given or refused? Why? @ -None Did you discuss the management of the patient with other professionals (professionals i.e. , PA, TRANSFER PUMPER, lab, RT, psych nurse, social media sr strategy manager, load mixer, teacher, equal employment opportunity officer, classification case manager)? Give summary @ -No Was smoking cessation discussed for >3mins.? @ -No Was critical care preformed (if so, how long)? @ -No Were there social determinants of health that impacted care today? How? (Homelessness, low income, unemployed, alcoholism, drug addiction, transportation, low edu. Level, literacy, decrease access to med. care, long term, rehab)? @ -No Was there de-escalation of care discussed even if they declined (Discuss DNR or withdrawal of care, Hospice)? DNR status @ -No What co-morbidities impacted this encounter? (DM, HTN, Smoking, COPD, CAD, Cancer, CVA, ARF, Chemo, Hep., AIDS, mental health diagnosis, sleep apnea, morbid obesity)? @ -None Was patient admitted / discharged? Hospital course, mention meds given and route, prescriptions, significant lab abnormalities, going to OR and other pertinent info. @ -Patient was admitted. This is a 73-year-old female presenting with vomiting x 2 days. Denies fevers, abdominal pain. Vital signs within normal limits. Abdomen is soft and nontender to palpation. Patient was provided IV fluids and Zofran for symptom control. Laboratory studies including CBC, CMP, lactic acid, lipase, troponin remarkable for white blood cell count of 24.8 with left shift, hyponatremia at 126, mild hyperkalemia at 5.3, and lactic acid of 2.6. KUB reveals partial or early complete small bowel obstruction, may be within proximal ileal region. Findings discussed with patient. Ct abd/pelvis revealed small bowel obstruction with dilated air-fluid small bowel loops extending to ileocecal valve. Blood cultures were taken and patient was started on IV antibiotics. Patient admitted to medicine with surgical consult at this time. Case was discussed with my ED attending Dr. Squires. Patient is agreeable to plan Undiagnosed new problem with uncertain prognosis? @ -No Drug Therapy requiring intensive monitoring for toxicity (Heparin, Nitro, Insulin, Cardizem)? @ -No Were any procedures done? @ -No Diagnosis/symptom? @ -Small bowel obstruction Acute, or Chronic, or Acute on Chronic? @ -Acute Uncomplicated (without systemic symptoms) or Complicated (systemic symptoms)? @ -Complicated Side effects of treatment? @ -No Exacerbation, Progression, or Severe Exacerbation? @ -No Poses a threat to life or bodily function? How? (Chest pain, USA, AL, pneumonia, PE, COPD, DKA, ARF, appy, cholecystitis, CVA, Diverticulitis, Homicidal, Suicidal, threat to staff... and all critical care pts) @ -Yes - Lab Data Result diagrams: 03/13/24 18:15 03/13/24 18:15 Lab Results 03/13/24 03/13/24 03/13/24 Range/Units 18:15 18:15 18:15 WBC 24.8 H (3.8-10.6) k/uL RBC 4.62 (3.80-5.40) m/uL Hgb 14.4 (11.4-16.0) gm/dL Hct 43.3 (34.0-46.0) % MCV 93.6 (80.0-100.0) fL MCH 31.0 (25.0-35.0) pg MCHC 33.2 (31.0-37.0) g/dL RDW 11.9 (11.5-15.5) % Plt Count 268 (150-450) k/uL MPV 7.3 Neutrophils % 93 % Lymphocytes % 3 % Monocytes % 3 % Eosinophils % 1 % Basophils % 0 % Neutrophils # 23.1 H (1.3-7.7) k/uL Lymphocytes # 0.7 L (1.0-4.8) k/uL Monocytes # 0.7 (0-1.0) k/uL Eosinophils # 0.2 (0-0.7) k/uL Basophils # 0.1 (0-0.2) k/uL Sodium 126 L (137-145) mmol/L Potassium 5.3 H (3.5-5.1) mmol/L Chloride 93 L (98-107) mmol/L Carbon Dioxide 21 L (22-30) mmol/L Anion Gap 12 mmol/L BUN 60 H (7-17) mg/dL Creatinine 1.70 H (0.52-1.04) mg/dL Est GFR (CKD-EPI)AfAm 35 (>60 ml/min/1.73 sqM) Est GFR (CKD-EPI)NonAf 30 (>60 ml/min/1.73 sqM) Glucose 130 H (74-99) mg/dL Lactic Ac Sepsis Rflx Plasma Lactic Acid Tony 2.6 H* (0.7-2.0) mmol/L Calcium 10.0 (8.4-10.2) mg/dL Total Bilirubin 2.3 H (0.2-1.3) mg/dL AST 31 (14-36) U/L ALT 11 (4-34) U/L Alkaline Phosphatase 50 (38-126) U/L Troponin I (0.000-0.034) ng/mL Total Protein 7.1 (6.3-8.2) g/dL Albumin 4.8 (3.5-5.0) g/dL Lipase 66 (23-300) U/L Urine Color Urine Appearance (Clear) Urine pH (5.0-8.0) Ur Specific [place] (1.001-1.035) Urine Protein (Negative) Urine Glucose (UA) (Negative) Urine Ketones (Negative) Urine Blood (Negative) Urine Nitrite (Negative) Urine Bilirubin (Negative) Urine Urobilinogen (<2.0) mg/dL Ur Leukocyte Esterase (Negative) Urine RBC (0-5) /hpf Urine WBC (0-5) /hpf Ur Squamous Epith Cells (0-4) /hpf Amorphous Sediment (None) /hpf Hyaline Casts (0-2) /lpf Urine Mucus (None) /hpf 03/13/24 03/13/24 03/13/24 Range/Units 18:15 18:47 20:13 WBC (3.8-10.6) k/uL RBC (3.80-5.40) m/uL Hgb (11.4-16.0) gm/dL Hct (34.0-46.0) % MCV (80.0-100.0) fL MCH (25.0-35.0) pg MCHC (31.0-37.0) g/dL RDW (11.5-15.5) % Plt Count (150-450) k/uL MPV Neutrophils % % Lymphocytes % % Monocytes % % Eosinophils % % Basophils % % Neutrophils # (1.3-7.7) k/uL Lymphocytes # (1.0-4.8) k/uL Monocytes # (0-1.0) k/uL Eosinophils # (0-0.7) k/uL Basophils # (0-0.2) k/uL Sodium (137-145) mmol/L Potassium (3.5-5.1) mmol/L Chloride (98-107) mmol/L Carbon Dioxide (22-30) mmol/L Anion Gap mmol/L BUN (7-17) mg/dL Creatinine (0.52-1.04) mg/dL Est GFR (CKD-EPI)AfAm (>60 ml/min/1.73 sqM) Est GFR (CKD-EPI)NonAf (>60 ml/min/1.73 sqM) Glucose (74-99) mg/dL Lactic Ac Sepsis Rflx Y Plasma Lactic Acid Tony (0.7-2.0) mmol/L Calcium (8.4-10.2) mg/dL Total Bilirubin (0.2-1.3) mg/dL AST (14-36) U/L ALT (4-34) U/L Alkaline Phosphatase (38-126) U/L Troponin I <0.012 (0.000-0.034) ng/mL Total Protein (6.3-8.2) g/dL Albumin (3.5-5.0) g/dL Lipase (23-300) U/L Urine Color Light Yellow Urine Appearance Clear (Clear) Urine pH 5.5 (5.0-8.0) Ur Specific [place] 1.022 (1.001-1.035) Urine Protein Trace H (Negative) Urine Glucose (UA) Negative (Negative) Urine Ketones 1+ H (Negative) Urine Blood Negative (Negative) Urine Nitrite Negative (Negative) Urine Bilirubin Negative (Negative) Urine Urobilinogen <2.0 (<2.0) mg/dL Ur Leukocyte Esterase Small H (Negative) Urine RBC 1 (0-5) /hpf Urine WBC 13 H (0-5) /hpf Ur Squamous Epith Cells 3 (0-4) /hpf Amorphous Sediment Rare H (None) /hpf Hyaline Casts 43 H (0-2) /lpf Urine Mucus Rare H (None) /hpf - EKG Data -: EKG Interpreted by Me EKG Comments: Normal sinus rhythm with no ST changes. Regular rate 70 bpm, OR interval 196, QRS duration 83, QT/QTc 383/416 Disposition Clinical Impression: Small bowel obstruction Disposition: ADMITTED IP TO THIS [facility] Time of Disposition: 20:42
[2024-03-13] MEDS: ONDANSETRON 4 MG/2 ML VIAL IVP STA (18:13)
[2024-03-13] MEDS: SODIUM CHLORIDE 0.9% 1,000 ML IV STA (18:13)
[2024-03-13 18:28] LABS: Basophils # (A) 0.1 k/uL (0-0.2); Basophils % (A) 0 %; Eosinophils # (A) 0.2 k/uL (0-0.7); Eosinophils % (A) 1 %; HCT 43.3 % (34.0-46.0); HGB 14.4 gm/dL (11.4-16.0); Lymphocytes # (A) 0.7 k/uL (1.0-4.8); Lymphocytes % (A) 3 %; MCHC 33.2 g/dL (31.0-37.0); MCV 93.6 fL (80.0-100.0); Mean Platelet Volume 7.3; Monocytes # (A) 0.7 k/uL (0-1.0); Monocytes % (A) 3 %; Neutrophils # (A) 23.1 k/uL (1.3-7.7); Neutrophils % (A) 93 %; Platelet Count 268 k/uL (150-450); RBC 4.62 m/uL (3.80-5.40); RDW 11.9 % (11.5-15.5); WBC 24.8 k/uL (3.8-10.6)
[2024-03-13 18:50] LABS: ALT 11 U/L (4-34); AST 31 U/L (14-36); African American GFR (CKD) 35 (>60 ml/min/1.73 sqM); Albumin 4.8 g/dL (3.5-5.0); Alkaline Phosphatase 50 U/L (38-126); Anion Gap 12 mmol/L; Blood Urea Nitrogen 60 mg/dL (7-17); Carbon Dioxide 21 mmol/L (22-30); Chloride 93 mmol/L (98-107); Glucose 130 mg/dL (74-99); Lipase 66 U/L (23-300); Non-African American GFR(CKD) 30 (>60 ml/min/1.73 sqM); Potassium 5.3 mmol/L (3.5-5.1); Sodium 126 mmol/L (137-145); Total Bilirubin 2.3 mg/dL (0.2-1.3); Total Protein 7.1 g/dL (6.3-8.2)
--- NOTE | 2024-03-13 19:19 | XR ---
EXAMINATION TYPE: XR KUB DATE OF EXAM: 03/13/2024 COMPARISON: None INDICATION: Vomiting diarrhea and constipation TECHNIQUE: Single view abdomen upright view FINDINGS: There is a differential air-fluid level within the left upper quadrant. This is small bowel which is dilated. Air-fluid levels are within the right mid abdomen. Nonspecific bowel gas is present within the colon. Some fecal debris is within the colon. No mass effect is evident. Psoas margins are normal. No organomegaly is present. IMPRESSION: 1. Findings suggest partial or early complete small bowel obstruction. Transition may be within the p roximal ileal region. Report was called to the emergency room by Dr. Rosa by telephone at the time of interpretation. [facility], , 03/13/2024 7:16 PM
[2024-03-13] MEDS: METOCLOPRAMIDE 5 MG/ML 2 ML VIAL IVP STA (20:10)
--- NOTE | 2024-03-13 20:20 | CT ---
EXAMINATION TYPE: CT abdomen pelvis wo con DATE OF EXAM: 03/13/2024 COMPARISON: 02/02/2023 INDICATION: Constipation, nausea and vomiting x 2 days DLP: 211.4 mGycm, Automated exposure control for dose reduction was used. CONTRAST: 0 mL of Isovue 300. Study performed without Oral Contrast TECHNIQUE: Axial images were obtained from above the diaphragm to the pubic rami in the axial plane a t 5 mm thick sections. Reconstructed images are reviewed on the computer in the coronal plane. FINDINGS: Limited CT sections are obtained the lung bases. There is an infiltrate in the right lower lobe. Cor relate for pneumonia. Follow-up is recommended.. CT ABDOMEN: Liver: Normal Spleen: Normal Pancreas: Normal Adrenal glands: The adrenal glands are normal. Gallbladder: Surgically absent Kidneys: No masses are evident. No hydronephrosis is present. No cysts are present. Delayed images were obtained through the kidneys, which remain unremarkable. Aorta: Vascular calcification is within the aorta. Inferior vena cava: Normal. CT PELVIS: There are dilated fluid-filled small bowel loops extending into the pelvis. Fecal debris is within th e colon. A zone of transition is at the distal terminal ileum, just proximal to the entrance ileoceca l valve. Example series 201 image 54. The study is without oral contrast bowel evaluation. Appendix: Not identified Urinary bladder: Unremarkable. Genitourinary structures: Uterus and ovaries are not identified. Osseous structures: No suspicious lytic or sclerotic lesions. IMPRESSION: 1. Small bowel obstruction with dilated air-filled small bowel loops extending to nearly the ileocec al valve with a sonographic transition in the terminal ileum. Report was called to emergency room PA by Dr. Rosa by telephone at the time of interpretation 2. Small right lower lobe infiltrate. Follow-up recommended. [facility], , 03/13/2024 8:17 PM
[2024-03-13] MEDS ORDERED: HYDROmorphone 0.5 MG/0.5 ML SYRINGE IVP PRN (20:38)
[2024-03-13] MEDS ORDERED: NALOXONE 0.4 MG/ML 1 ML VIAL IV PRN (20:38)
[2024-03-13] MEDS ORDERED: MORPHINE SULFATE 4 MG/ML SYRINGE IV PRN (20:38)
[2024-03-13 20:57] LABS: Amorphous Sediment,Urine Rare /hpf; Appearance,Urine Clear (Clear); Bilirubin,Urine Negative (Negative); Blood,Urine Negative (Negative); Color,Urine Light Yellow; Glucose,Urine (UA) Negative (Negative); Hyaline Casts,Urine 43 /lpf (0-2); Ketones,Urine 1+ (Negative); Leukocyte Esterase,Urine Small (Negative); Mucus,Urine Rare /hpf; Nitrite,Urine Negative (Negative); PH, Urine 5.5 (5.0-8.0); Protein,Urine Trace (Negative); RBC,Urine 1 /hpf (0-5); Specific Gravity,Urine 1.022 (1.001-1.035); Squamous Epithelial Cell,Urine 3 /hpf (0-4); Urobilinogen,Urine <2.0 mg/dL (<2.0); WBC,Urine 13 /hpf (0-5)
[2024-03-13] MEDS: AMPICILLIN-SULBACTAM 3 GM in SODIUM CHLORIDE 0.9% 100 ML IVPB STA (21:23)
[2024-03-13] MEDS: SODIUM CHLORIDE 0.9% 1,000 ML IV SCH (21:24)
[2024-03-14] MEDS: ALPRAZolam 0.25 MG TAB PO PRN (00:44)
[2024-03-14] MEDS: AMPICILLIN-SULBACTAM 3 GM in SODIUM CHLORIDE 0.9% 100 ML IVPB SCH (03:44)
--- NOTE | 2024-03-14 04:36 | P.CON ---
Consult Note - . Consult date: 03/14/24 Assessment/Plan:: 73-year-old female with history of hypertension and hyperlipidemia presenting for nausea and vomiting for 2 days. The patient states two days ago she took 2 MiraLAX for constipation. However after taking MiraLAX, she began to vomit. T he vomiting has been persistent for the past 2 days. Patient has been able to tolerate liquids, however has not been able to eat for 2 days. She reports she feels very dehydrated.. She also states she has only urinated 1 time in 2 days, denies urinary urgency, dysuria, or hematuria. Last bowel movement was yesterday and was normal. She does have a history of cholecystectomy and hysterectomy. Denies blood thinners. CT-AP shows dilated bowel loops and transition point consistent with small bowel obstruction. She is noted have a leukocytosis and an elevated lactate which is most likely consistent with dehydration. Her elevated lactate resolved with fluids. Review of Systems ROS Statement: Those systems with pertinent positive or pertinent negative responses have been documented in the HPI. ROS Other: All systems not noted in ROS Statement are negative. Past Medical History Past Medical History: Hyperlipidemia, Hypertension Additional Past Medical History / Comment(s): parkinsons History of Any Multi-Drug Resistant Organisms: None Reported Past Surgical History: Cholecystectomy, Hysterectomy Additional Past Surgical History / Comment(s): cyst removed from right breast at age 18 Past Anesthesia/Blood Transfusion Reactions: No Reported Reaction Past Psychological History: Anxiety Smoking Status: Never smoker Past Alcohol Use History: None Reported Past Drug Use History: None Reported General Exam Limitations: no limitations General appearance: alert, in no apparent distress Head exam: Present: atraumatic, normocephalic, normal inspection Eye exam: Present: normal appearance, PERRL, EOMI. Absent: scleral icterus, conjunctival injection, periorbital swelling ENT exam: Present: normal exam, mucous membranes moist Respiratory exam: Present: normal lung sounds bilaterally. Absent: respiratory distress, wheezes, rales, rhonchi, stridor Cardiovascular Exam: Present: regular rate, normal rhythm, normal heart sounds. Absent: systolic murmur, diastolic murmur, rubs, gallop, clicks GI/Abdominal exam: Present: soft, normal bowel sounds. Absent: distended, tenderness, guarding, rebound, rigid Neurological exam: Present: alert, oriented X3 Psychiatric exam: Present: normal affect, normal mood Skin exam: Present: warm, dry, intact, normal color. Absent: rash 73 year old female with Small Bowel Obstruction -NPO -NGT-LIS -IV fluids -Unasyn -Nausea Control -AM labs Andrea Barraza [facility] [phone]
--- NOTE | 2024-03-14 05:57 | XR ---
EXAMINATION TYPE: XR chest 1V portable DATE OF EXAM: 03/14/2024 CLINICAL HISTORY: NG tube placement. TECHNIQUE: Single frontal view of the chest is obtained. COMPARISON: Prior chest x-ray from 06/11/2023 FINDINGS: There is new nasogastric tube projecting below diaphragm. There is chronic parenchymal fuller ge bilaterally without suspicious focal air space opacity, pleural effusion, or pneumothorax seen. T he cardiac silhouette size remains within normal limits. The osseous structures are intact. IMPRESSION: A new nasogastric tube is satisfactory in position. [facility], , 03/14/2024 5:55 AM
[2024-03-14] MEDS: PROPRANOLOL 20 MG TAB PO SCH (07:53)
[2024-03-14 10:03] LABS: BUN/Creat Ratio 39.27 Ratio (12.00-20.00); Blood Urea Nitrogen 43.2 mg/dL (9.0-27.0); Calcium 8.9 mg/dL (8.7-10.3); Carbon Dioxide 18.8 mmol/L (21.6-31.8); Chloride 98 mmol/L (96-109); Glucose 125 mg/dL (70-110); Potassium 4.5 mmol/L (3.5-5.5); Sodium 132 mmol/L (135-145)
[2024-03-14 10:06] LABS: Basophils # (A) 0.08 X 10*3/uL (0.00-0.10); Basophils % (A) 0.4 %; Eosinophils # (A) 0.13 X 10*3/uL (0.04-0.35); Eosinophils % (A) 0.6 %; HGB 13.5 g/dL (12.0-15.0); Lymphocytes # (A) 0.43 X 10*3/uL (0.90-5.00); Lymphocytes % (A) 1.9 %; MCH 31.3 pg (27.0-32.0); MCHC 34.6 g/dL (32.0-37.0); MCV 90.3 FL (80.0-97.0); Mean Platelet Volume 9.9 FL (9.5-12.2); Monocytes # (A) 1.37 X 10*3/uL (0.20-1.00); Monocytes % (A) 6.2 %; NRBC Per 100 WBC 0 X 10*3/uL (0.00-0.01); Neutrophils # (A) 19.96 X 10*3/uL (1.80-7.70); Neutrophils % (A) 90.5 %; Platelet Count 232 X 10*3/uL (140-440); RBC 4.32 X 10*6/uL (4.10-5.20); RDW 12.1 % (11.5-14.5); WBC 22.06 X 10*3/uL (4.50-10.00)
[2024-03-14] MEDS: CARBIDOPA-LEVODOPA 25-100 MG 1 EACH TAB PO SCH (10:42)
--- NOTE | 2024-03-14 14:04 | P.HPIM ---
History of Present Illness H&P Date: 03/14/24 History of present illness; patient is a 73-year-old lady with past medical history significant for hypertension, hyperlipidemia presented the ER for nausea and vomiting for the last 2 days. Patient stated that she was all right 2 days back when she took MiraLAX for constipation following that she started having nausea and vomiting patient has been having persistent vomiting. Denies any blood in the vomitus. Denies any abdominal pain. Patient last bowel movement was yesterday. Patient is passing gas. Denies any fever or chills. There is no complaint orthopnea or PND. Denies any chest pain or shortness of breath. because of persistent nausea and vomiting she presented to the ER Initial lab work done in the ER showed WBC 24.8, hemoglobin 14.4, platelet count 268, sodium 126, potassium 5.3, carbon psyched 21, BUN 60, creatinine 1.7 lactate 2.6, bilirubin 2.3 AST 31, ALT 11 UA shows negative urine nitrite, small amount of leukocyte Estrace. Urine WBC 13 X-ray KUB done showed findings suggestive of partial or early complete small bowel obstruction CT abdominal pelvis done showed small bowel obstruction with dilated air-fluid small bowel loops extending to nearly the ileocecal valve with a sonographic transition in the terminal ileum Patient admitted to internal medicine service REVIEW OF SYSTEMS: CONSTITUTIONAL: No fever, no malaise, no fatigue. HEENT: No recent visual problems or hearing problems. Denied any sore throat. CARDIOVASCULAR: No chest pain, orthopnea, PND, no palpitations, no syncope. PULMONARY: As mentioned above GASTROINTESTINAL: As mentioned above NEUROLOGICAL: No headaches, no weakness, no numbness. HEMATOLOGICAL: Denies any bleeding or petechiae. GENITOURINARY: Denies any burning micturition, frequency, or urgency. MUSCULOSKELETAL/RHEUMATOLOGICAL: Denies any joint pain, swelling, or any muscle pain. ENDOCRINE: Denies any polyuria or polydipsia. The rest of the 14-point review of systems is negative. PHYSICAL EXAMINATION: GENERAL: The patient is alert and oriented x3, not in any acute distress. Well developed, well nourished. HEENT: Pupils are round and equally reacting to light. EOMI. No scleral icterus. No conjunctival pallor. Normocephalic, atraumatic. No pharyngeal erythema. No thyromegaly. CARDIOVASCULAR: S1 and S2 present. No murmurs, rubs, or gallops. PULMONARY: Chest is clear to auscultation, no wheezing or crackles. ABDOMEN: Soft, nontender, nondistended, normoactive bowel sounds. No palpable organomegaly. MUSCULOSKELETAL: No joint swelling or deformity. EXTREMITIES: No cyanosis, clubbing, or pedal edema. NEUROLOGICAL: Gross neurological examination did not reveal any focal deficits. SKIN: No rashes. Assessment and plan Small bowel obstruction Hyponatremia Hyperkalemia Lactic acidosis Acute kidney injury Hyperlipidemia Hypertension Parkinson Monitor vital signs Monitor CBC Monitor CMP Continue telemetry monitoring Ordered NG Ordered n.p.o. Ordered antiemetics Ordered IV fluids Avoid nephrotoxic agents IV Unasyn Consult surgery Resume home meds Labs and medication were reviewed.. Continue same treatment. Continue with symptomatic treatment. Resume home medication. Monitor labs and vitals. DVT and GI prophylaxis. Further recommendations as per clinical course of the patient Dictation was produced using [employer] dictation software. please excuse any grammatical, word or spelling errors. Past Medical History Past Medical History: Hyperlipidemia, Hypertension Additional Past Medical History / Comment(s): parkinsons History of Any Multi-Drug Resistant Organisms: None Reported Past Surgical History: Cholecystectomy, Hysterectomy Additional Past Surgical History / Comment(s): cyst removed from right breast at age 18 Past Anesthesia/Blood Transfusion Reactions: No Reported Reaction Past Psychological History: Anxiety Smoking Status: Never smoker Past Alcohol Use History: None Reported Past Drug Use History: None Reported Medications and Allergies Home Medications Medication Instructions Recorded Confirmed Type ALPRAZolam [Xanax] 0.25 mg PO TID PRN 10/14/20 02/02/23 History Aspirin EC [Ecotrin Low Dose] 81 mg PO DAILY 10/14/20 02/02/23 History Multivitamins, Thera [Multivitamin 1 tab PO DAILY 10/14/20 02/02/23 History (formulary)] Simvastatin [Zocor] 20 mg PO HS 10/14/20 02/02/23 History Carbidopa-Levodopa 25-100 mg 1 tab PO TID 10/02/22 02/02/23 History [Sinemet 25-100 mg] Cranberry Fruit Extract [Cranberry] 500 mg PO DAILY 10/02/22 02/02/23 History Ondansetron [Zofran] 4 mg PO Q8H PRN 10/02/22 02/02/23 History Pantoprazole Sodium [Protonix] 40 mg PO DAILY 10/02/22 02/02/23 History Propranolol [Inderal] 20 mg PO BID 10/02/22 02/02/23 History amLODIPine [Norvasc] 5 mg PO DAILY #30 tab 02/04/23 Rx Allergies Allergy/AdvReac Type Severity Reaction Status Date / Time levofloxacin [From Levaquin] AdvReac Nausea & Verified 03/13/24 17:38 Vomiting & Shaking Physical Exam Vitals: Vital Signs Temp Pulse Pulse Resp BP BP Pulse Ox 03/14/24 07:27 98.2 F 90 16 158/82 97 03/13/24 23:51 82 165/79 03/13/24 23:14 98.1 F 77 16 174/78 96 03/13/24 23:03 98.2 F 81 17 108/69 96 03/13/24 20:15 77 16 124/56 99 03/13/24 17:36 98.1 F 79 18 120/61 98 Intake and Output 03/13/24 03/14/24 03/14/24 22:59 06:59 14:59 Other: # Voids 0 1 Weight 40.823 kg 40.823 kg Results CBC & Chem 7: 03/14/24 04:43 03/14/24 04:43 Labs: Abnormal Lab Results - Last 24 Hours (Table) 03/13/24 03/13/24 03/13/24 Range/Units 18:15 18:15 18:15 WBC 24.8 H (3.8-10.6) k/uL Immature Gran # (0.00-0.04) X 10*3/uL Neutrophils # 23.1 H (1.3-7.7) k/uL Lymphocytes # 0.7 L (1.0-4.8) k/uL Monocytes # (0.20-1.00) X 10*3/uL Sodium 126 L (137-145) mmol/L Potassium 5.3 H (3.5-5.1) mmol/L Chloride 93 L (98-107) mmol/L Carbon Dioxide 21 L (22-30) mmol/L Anion Gap (4.00-12.00) mmol/L BUN 60 H (7-17) mg/dL Creatinine 1.70 H (0.52-1.04) mg/dL Est GFR (CKD-EPI) (>=60) BUN/Creatinine Ratio (12.00-20.00) Ratio Glucose 130 H (74-99) mg/dL Plasma Lactic Acid Tony 2.6 H* (0.7-2.0) mmol/L Total Bilirubin 2.3 H (0.2-1.3) mg/dL Urine Protein (Negative) Urine Ketones (Negative) Ur Leukocyte Esterase (Negative) Urine WBC (0-5) /hpf Amorphous Sediment (None) /hpf Hyaline Casts (0-2) /lpf Urine Mucus (None) /hpf 03/13/24 03/14/24 03/14/24 Range/Units 20:13 04:43 04:43 WBC 22.06 H (3.8-10.6) k/uL Immature Gran # 0.09 H (0.00-0.04) X 10*3/uL Neutrophils # 19.96 H (1.3-7.7) k/uL Lymphocytes # 0.43 L (1.0-4.8) k/uL Monocytes # 1.37 H (0.20-1.00) X 10*3/uL Sodium 132 L (137-145) mmol/L Potassium (3.5-5.1) mmol/L Chloride (98-107) mmol/L Carbon Dioxide 18.8 L (22-30) mmol/L Anion Gap 15.20 H (4.00-12.00) mmol/L BUN 43.2 H (7-17) mg/dL Creatinine (0.52-1.04) mg/dL Est GFR (CKD-EPI) 54 L (>=60) BUN/Creatinine Ratio 39.27 H (12.00-20.00) Ratio Glucose 125 H (74-99) mg/dL Plasma Lactic Acid Tony (0.7-2.0) mmol/L Total Bilirubin (0.2-1.3) mg/dL Urine Protein Trace H (Negative) Urine Ketones 1+ H (Negative) Ur Leukocyte Esterase Small H (Negative) Urine WBC 13 H (0-5) /hpf Amorphous Sediment Rare H (None) /hpf Hyaline Casts 43 H (0-2) /lpf Urine Mucus Rare H (None) /hpf Thrombosis Risk Factor Assmnt - Choose All That Apply Each Risk Factor Represents 2 Points: Age 61-74 years Each Risk Factor Represents 3 Points: Family history of DVT/PE Thrombosis Risk Factor Assessment Total Risk Factor Score: 5 Thrombosis Risk Factor Assessment Level: High Risk
[2024-03-14] MEDS: SUCRALFATE 1 GM TAB PO SCH (18:24)
[2024-03-14] MEDS: ATORVASTATIN 10 MG TAB PO SCH (20:38)
[2024-03-15] MEDS: ONDANSETRON 4 MG/2 ML VIAL IVP PRN (00:12)
[2024-03-15] MEDS: amLODIPine 2.5 MG TAB PO SCH (08:43)
[2024-03-15 08:44] LABS: HCT 36.8 % (37.2-46.3); HGB 12.5 g/dL (12.0-15.0); MCH 31.1 pg (27.0-32.0); MCV 91.5 FL (80.0-97.0); Mean Platelet Volume 10.2 FL (9.5-12.2); NRBC Per 100 WBC 0 X 10*3/uL (0.00-0.01); Platelet Count 184 X 10*3/uL (140-440); RBC 4.02 X 10*6/uL (4.10-5.20); WBC 7.32 X 10*3/uL (4.50-10.00)
[2024-03-15] MEDS: SUCRALFATE 1 GM TAB PO SCH (08:44)
[2024-03-15 09:04] LABS: ALT 16 U/L (8-44); AST 18 U/L (13-35); Albumin 3.7 g/dL (3.8-4.9); Albumin/Globulin Ratio 2.18 Ratio (1.60-3.17); Alkaline Phosphatase 33 U/L (41-126); BUN/Creat Ratio 38.57 Ratio (12.00-20.00); Calcium 8.6 mg/dL (8.7-10.3); Carbon Dioxide 21.6 mmol/L (21.6-31.8); Chloride 100 mmol/L (96-109); Globulin 1.7 g/dL (1.6-3.3); Glucose 86 mg/dL (70-110); Potassium 3.8 mmol/L (3.5-5.5); Sodium 137 mmol/L (135-145); Total Bilirubin 0.9 mg/dL (0.3-1.2); Total Protein 5.4 g/dL (6.2-8.2)
[2024-03-15 11:06] LABS: Basophils # (M) 0 X 10*3/uL (0.00-0.10); Crenated RBC 2+; Eosinophils # (M) 0 X 10*3/uL (0.04-0.35); Lymphocytes # (M) 0.37 X 10*3/uL (0.90-5.00); Metamyelocytes % 5 % (0-0); Monocytes # (M) 0.73 X 10*3/uL (0.20-1.00); Neutrophils # (M) 5.86 X 10*3/uL (1.80-7.70); Neutrophils % (M) 80 %
[2024-03-15 11:44] VITALS: BMI 15.0
--- NOTE | 2024-03-15 13:46 | P.PN ---
Subjective Progress Note Date: 03/15/24 CHIEF COMPLAINT: SBO HISTORY OF PRESENT ILLNESS: Patient reports feeling less distended. She is having flatus. Denies any bowel movements. She reports her pain is less. She does occasionally feel nauseated. NG tube with 600 throughout the night and 50 mL bilious output this morning. Afebrile. WBC has normalized from 22 down to 7.32 PHYSICAL EXAM: VITAL SIGNS: Reviewed. GENERAL: Well-developed in no acute distress. ABDOMEN: Soft. Mildly distended. Diffuse tenderness. NEUROLOGIC: Alert and oriented. Cranial nerves II through XII grossly intact. ASSESSMENT: 1. Small bowel obstruction 2. History of abdominal surgeries PLAN: -Continue NG tube for decompression until seen by surgeon -Keep patient n.p.o. -Encourage patient to increase activity level -Continue antibiotics -Continue IV fluids Physician Ceramic Maker Demonstrator note has been reviewed by physician. Signing provider agrees with the documented findings, assessment, and plan of care. Objective - Vital Signs Vital signs: Vital Signs Temp 97.3 F L 03/15/24 08:00 Pulse 89 03/15/24 08:00 Resp 18 03/15/24 08:00 BP 162/83 03/15/24 08:00 Pulse Ox 95 03/15/24 08:00 FiO2 Intake & Output 03/14/24 03/15/24 03/15/24 18:59 06:59 18:59 Weight 40.823 kg Other: # Voids 1 2 - Labs CBC & Chem 7: 03/15/24 06:02 03/15/24 06:02 Labs: Abnormal Lab Results - Last 24 Hours (Table) 03/15/24 03/15/24 Range/Units 06:02 06:02 RBC 4.02 L (4.10-5.20) X 10*6/uL Hct 36.8 L (37.2-46.3) % Lymphocytes # (Manual) 0.37 L (0.90-5.00) X 10*3/uL Eosinophils # (Manual) 0 L (0.04-0.35) X 10*3/uL Crenated Cell 2+ A Anion Gap 15.40 H (4.00-12.00) mmol/L BUN/Creatinine Ratio 38.57 H (12.00-20.00) Ratio Calcium 8.6 L (8.7-10.3) mg/dL Alkaline Phosphatase 33 L (41-126) U/L Total Protein 5.4 L (6.2-8.2) g/dL Albumin 3.7 L (3.8-4.9) g/dL Microbiology - Last 24 Hours (Table) 03/13/24 21:20 Blood Culture - Preliminary Blood 03/13/24 20:13 Urine Culture - Preliminary Urine,Voided Gram Neg Bacilli
--- NOTE | 2024-03-15 22:31 | P.PN ---
Subjective Progress Note Date: 03/15/24 HISTORY OF PRESENT ILLNESS: 73-year-old one of my active office patient with history of Parkinson disease, hypertension, hyperlipidemia, with history of mild anxiety attacks as well who presented to the emergency department On March 13, 2024 with complaint of intractable nausea and vomiting for 2 days with significant abdominal pain and discomfort has been constipated early symptom persistent but denies any bloody emesis slightly but worsening abdominal pain with food or drink she has not had any bowel movement has been passing minimal amount of gas only the blood no fever or chills with her discomfort. End up coming to the emergency department was seen and evaluated surprisingly her white blood cell was 24,800 hemoglobin 14.4 sodium was 126 potassium 5.3 with carbon dioxide 21 bun 60 creatinine 1. 7 with lactic acid of 2.6 total bilirubin 2.3. CAT scan of the abdomen showed small bowel obstruction with dilated air-fluid level extending through the entire bowel loop to nearly the ileocecal valve with sonographic transition into the terminal ileum. Patient was admitted to medical service seen general surgery who reviewed found decided best action plan initially to keep patient n.p.o. NG tube to low suction control nausea and initiate Unasyn at the time with follow-up lab in the morning. Patient seen and evaluated this morning surprisingly her white blood cell dropped on 7320 with hemoglobin still normal her kidney function has improved significantly yesterday creatinine down to 1.1 this morning 8.7. Liver function test lactic acid are all back to normal her urine test from early came back slightly with abnormal surprisingly urine culture came back positive for gram- negative bacilli but blood culture still negative. Patient remained in the meanwhile on Unasyn which seem to control his symptoms. She is still have an NG tube on low suction her abdominal pain slightly bit better still no bleeding of any type and not passing any gas so far. No bowel movement. REVIEW OF SYSTEMS: CONSTITUTIONAL: Well-developed no acute respiratory distress. EYES: No icterus sclerae, no conjunctivitis. EARS, NOSE, MOUTH, THROAT, and FACE: No sore throat, lymphadenopathy, carotid bruits or deformity. RESPIRATORY: No SOB cough or wheezes. CARDIOVASCULAR: No CP, Palpitation, PND, Orthopnea, or angina. GASTROINTESTINAL: Significant abdominal pain with nausea vomiting no diarrhea no bowel movement so far with partial bowel obstruction. GENITOURINARY: Negative for Hematuria or UTI, no kidney stones. INTEGUMENT/BREAST: Negative for any muscular injury with mild osteoarthritis.. HEMATOLOGIC/LYMPHATIC: Negative for bleed or purpura. MUSCULOSKELTAL: Negative for Myalgia or arthralgia. NEURLOGICAL: Diagnosed with parkinsonism along with tremor abnormal balance and gait. BEHAVIORAL/PSYCH: Negative. ENDOCRINE: Negative. PHYSICAL EXAMINATION: General Appearance: Alert, cooperative, no distress, appears stated age. Neck HEENT: Supple, no lymphadenopathy, no thyroid enlargement, no carotid bruits. Lungs: Clear to auscultation without crackles or wheezes no rhonchi, no deform ity. Chest Wall: Decreased expansion with deep inspiration no tenderness and no deformity was found on exam, no costochondral pain or discomfort. Heart: Regular rate and rhythm, S1, S2 normal, no murmur, rub or gallop. Back: Symmetric, no curvature, ROM normal, no CVA tenderness. Abdomen: Soft slightly distended with slight discomfort epigastric and mid abdominal region area no rebound or rigidity not able to feel any mass distention is down still have slightly better hyper bowel sound. Extremities: Extremities normal, atraumatic, no cyanosis or edema. Pulses: 2+ and symmetric. Skin: Skin color, texture, tugor normal, no rashes or lesions. Neurologic: Alert oriented x3 cranial nerves II through XII intact, no motor deficit, no abnormal balance or gait. ASSESSMENT AND PLAN: _Severe abdominal pain with nausea and vomiting secondary to bowel obstruction: Continue NG tube with suction, continue surgical consultation continue conservative management for now no surgical intervention required yet. _Severe leukocytosis with no sign and symptom of sepsis despite lactic acid being elevated initially which was sign of abnormality ongoing may be from her bowel obstruction but this is might be reactive leukocytosis to which she had remained on Unasyn. _Small bowel obstruction: Symptoms are slightly bit better with NG tube still recommend to keep NG tube with suction at this point at least till tomorrow repeat another film tomorrow and may be will take her chances by removing the tube if air-fluid level is better. _Urinary tract infection with no sign of sepsis. Gram-negative bacilli was found remain on Unasyn currently we will continue current management. _Severe hyponatremia: Most likely from the complication related to nausea and vomiting close mild degree of SIADH continue conservative management with hydration repeat CMP with blood work. _Acute kidney injury secondary to acute tubular necrosis and probably prerenal acidemia: Continue hydration kidney function has improved significantly so far. _Parkinsonism: Remain on carbidopa levodopa continue vacation. _Hypertension: Continue amlodipine 2.5 mg a day along with propranolol 20 mg twice a day. _Gastritis and severe GERD has been on Carafate 1 g twice a day was earlier on pantoprazole. CODE STATUS: Full code. Discussion continue to watch manage with going with the patient with guideline of management for general surgery still on conservative management with n.p.o. along with NG tube and antiemetic medication continue to avoid nephrotoxic agent and continue again Unasyn with pending culture mostly urine culture is positive. Blood culture has so far been negative. Objective - Vital Signs Vital signs: Vital Signs Temp 97.6 F 03/15/24 00:30 Pulse 88 03/15/24 00:30 Resp 17 03/15/24 00:30 BP 129/78 03/15/24 00:30 Pulse Ox 98 03/15/24 00:30 FiO2 Intake & Output 03/14/24 03/15/24 03/15/24 18:59 06:59 18:59 Other: # Voids 1 2 - Labs CBC & Chem 7: 03/15/24 06:02 03/15/24 06:02 Labs: Abnormal Lab Results - Last 24 Hours (Table) 03/14/24 03/14/24 Range/Units 04:43 04:43 WBC 22.06 H (4.50-10.00) X 10*3/uL Immature Gran # 0.09 H (0.00-0.04) X 10*3/uL Neutrophils # 19.96 H (1.80-7.70) X 10*3/uL Lymphocytes # 0.43 L (0.90-5.00) X 10*3/uL Monocytes # 1.37 H (0.20-1.00) X 10*3/uL Sodium 132 L (135-145) mmol/L Carbon Dioxide 18.8 L (21.6-31.8) mmol/L Anion Gap 15.20 H (4.00-12.00) mmol/L BUN 43.2 H (9.0-27.0) mg/dL Est GFR (CKD-EPI) 54 L (>=60) BUN/Creatinine Ratio 39.27 H (12.00-20.00) Ratio Glucose 125 H (70-110) mg/dL
--- NOTE | 2024-03-16 08:57 | XR ---
EXAMINATION TYPE: XR abdomen 2V DATE OF EXAM: 03/16/2024 COMPARISON: 03/13/2024 HISTORY: Small bowel obstruction TECHNIQUE: One view abdominal series FINDINGS: Markedly dilated bowel loops are seen within small bowel loops distended level of 6.5 cm. NG tube is seen in position tip at the level of the gastric body. Extensive retained fecal debris throughout the colon. Bilateral hip arthropathy. Degenerative change of the spine. Vascular calcifications. Assessm ent for free air or nondiagnostic. Lung bases are clear. Surgical clips gallbladder fossa. IMPRESSION: 1. NG tube with the tip at the level of the gastric body. Persistent markedly dilated small bowel loo ps which are increased in diameter from prior exam suspicious for bowel obstruction. 2. Large retained stool burden. [facility], , 03/16/2024 8:55 AM
[2024-03-16 09:00] LABS: HCT 38.3 % (37.2-46.3); HGB 12.9 g/dL (12.0-15.0); MCH 31.3 pg (27.0-32.0); MCHC 33.7 g/dL (32.0-37.0); Mean Platelet Volume 10.2 FL (9.5-12.2); NRBC Per 100 WBC 0 X 10*3/uL (0.00-0.01); Platelet Count 185 X 10*3/uL (140-440); RBC 4.12 X 10*6/uL (4.10-5.20); WBC 6.75 X 10*3/uL (4.50-10.00)
[2024-03-16 09:11] LABS: ALT 16 U/L (8-44); AST 16 U/L (13-35); Albumin 3.5 g/dL (3.8-4.9); Albumin/Globulin Ratio 2.19 Ratio (1.60-3.17); Alkaline Phosphatase 32 U/L (41-126); BUN/Creat Ratio 33.29 Ratio (12.00-20.00); Blood Urea Nitrogen 23.3 mg/dL (9.0-27.0); Calcium 8.5 mg/dL (8.7-10.3); Carbon Dioxide 22.6 mmol/L (21.6-31.8); Chloride 101 mmol/L (96-109); Globulin 1.6 g/dL (1.6-3.3); Glucose 74 mg/dL (70-110); Potassium 3.3 mmol/L (3.5-5.5); Sodium 141 mmol/L (135-145); Total Bilirubin 0.6 mg/dL (0.3-1.2); Total Protein 5.1 g/dL (6.2-8.2)
--- NOTE | 2024-03-16 13:32 | P.PN ---
Subjective Progress Note Date: 03/16/24 CHIEF COMPLAINT: SBO HISTORY OF PRESENT ILLNESS: Patient complains of feeling tired. She did have some nausea. She reports having bowel movements and flatus. NG tube with 100 mL output. She had abdominal x-ray completed this morning reporting NG tube with the tip at the level of the gastric body. Persistent markedly dilated small bowel loops which are increased in diameter from prior exam suspicious for bowel obstruction. Large retained stool burden. Afebrile. WBC 6.75 potassium 3.3 PHYSICAL EXAM: VITAL SIGNS: Reviewed. GENERAL: Well-developed in no acute distress. ABDOMEN: Soft. Mildly distended. No significant tenderness on exam. NEUROLOGIC: Alert and oriented. Cranial nerves II through XII grossly intact. ASSESSMENT: 1. Small bowel obstruction 2. History of abdominal surgeries 3. Hypokalemia PLAN: -Ordering small bowel follow-through with Gastrografin -Continue NG tube for decompression -Keep patient n.p.o. -Encourage patient to increase activity level -Continue antibiotics -Continue IV fluids -Replace potassium Physician Inside Sales Account Representative note has been reviewed by physician. Signing provider agrees with the documented findings, assessment, and plan of care. Attestation Patient seen and examined at bedside. She presented with chief complaint of abdominal pain and found to have small bowel obstruction. She states that she had bowel movement and flatus today. Abdominal x-ray was performed with concerning finding of increased bowel distention, however clinically patient appears to be improving. With the fact that she had bowel function with flatus and bowel movement, we will plan for small bowel follow-through with Gastrografin for further evaluation. Continue n.p.o. status. Continue nasogastric tube at this time. Kathrin Thomason DO Objective - Vital Signs Vital signs: Vital Signs Temp 98.2 F 03/16/24 07:33 Pulse 85 03/16/24 07:33 Resp 15 03/16/24 07:33 BP 141/78 03/16/24 07:33 Pulse Ox 96 03/16/24 07:33 FiO2 Intake & Output 03/15/24 03/16/24 03/16/24 18:59 06:59 18:59 Intake Total 300 Output Total 500 100 Balance -500 -100 300 Weight 40.823 kg Intake: Oral 300 Output: Gastric Drainage 100 Urine 500 Other: Voiding Method Toilet # Voids 1 - Labs CBC & Chem 7: 03/16/24 06:01 03/16/24 06:01 Labs: Abnormal Lab Results - Last 24 Hours (Table) 03/16/24 Range/Units 06:01 Potassium 3.3 L (3.5-5.5) mmol/L Anion Gap 17.40 H (4.00-12.00) mmol/L BUN/Creatinine Ratio 33.29 H (12.00-20.00) Ratio Calcium 8.5 L (8.7-10.3) mg/dL Alkaline Phosphatase 32 L (41-126) U/L Total Protein 5.1 L (6.2-8.2) g/dL Albumin 3.5 L (3.8-4.9) g/dL Microbiology - Last 24 Hours (Table) 03/13/24 21:20 Blood Culture - Preliminary Blood 03/13/24 20:13 Urine Culture - Final Urine,Voided Escherichia coli
[2024-03-16] MEDS: POTASSIUM CHLORIDE 10 MEQ in WATER FOR INJECTION 1 100ML.BAG IVPB SCH (15:35)
--- NOTE | 2024-03-16 16:00 | CDI ---
Documentation Clarification Form Date: 03/16/2024 03:35:36 PM From: Debra Hyman RN CCDS Phone: [phone] Admit Date: 03/13/2024 08:42:00 PM Patient Name: Elodia Cobb Visit Number: [id number] Discharge Date: ATTENTION: The Clinical Documentation Specialists (CDI) and [facility] Coding Staff appreciate your assistance in clarifying documentation. Please respond to the clarification below the line at the bottom and electronically sign. The CDI & [facility] Coding staff will review the response and follow-up if needed. Please note: Queries are made part of the Legal Health Record. If you have any questions, please contact the author of this message via ITS. Doctor: Mark Farley The Registered Dietitian assessment on 03/15 indicates this patient meets criteria for Severe Malnutrition. Based on this information and the findings below, is there an additional diagnosis that is clinically appropriate for this patient? History/Risk Factors: 73 year old female presents to the ED for nausea and vomiting for the last two days. She was all right two days back when she took miralax for constipation following that she started having nausea and vomiting patient has been having persistent vomiting. Denies any abdominal pain. Last bowel movement was yesterday. Medical history: HLD, HTN and Parkinsons. 03/14, HP Clinical Indicators: Current BMI: 15.0kg RD Consult Assessment: Nutritional intake is poor, percent consumed 0%, NPO with NG tube In place to suction. Nutritional concerns: underfeeding with poor appetite. Nutrition related: Antiemetic. Medications Statin and Sucralfate. 03/15 nutrition pertinent nutrition labs WNL. Physical appearance underweight; Weight 40.823kg stated by patient: Height 5ft 5in BMI 15.0 BMI Classification Underweight. Kcal Energy Needs 1700. KCAL comment 924 (MSJ BMR) x 1.3 (AF) + 500 for wt gain = 1700. Estimated Protein needs: Estimated Protein 1.5g/kg r/t Malnutrition. Estimated Protein Needs a day 62g. Estimated Fluid Needs 1700mls/day. Nutritional Diagnosis: Severe malnutrition in the setting of acute illness. Related to: Small bowel Obstruction with diminished PO. Evidenced By: <50% of EEN consumed w/ 11# (10.8%) weight loss x 1 month. Patient stated UBW is 110# but she cant recall when she last weight this. RD observed wgt on 02/03/23 to be 101#. Patient states she has been losing weight for several years and having a hard time gaining weight. Treatment: Monitor PO, Diet Education, Follow diet progression with education. Patient NPO at this time. Monitoring of IV fluids and out put of NG tube. Is there an additional diagnosis that is clinically appropriate for this patient? [xx ] Severe Protein-Calorie Malnutrition [ ] No additional diagnosis/Not clinically significant [ ] Other condition, please specify [ ] Unable to Determine Reference: Using the ASPEN Guidelines, Undernutrition (Malnutrition) is characterized by at least two of the following six findings. The severity can be determined based on the criteria listed below. Malnutrition Characteristics for Moderate and Severe Malnutrition Type of Malnutrition Acute Illness or Injury Chronic Illness Degree of Malnutrition Non-severe (moderate) Malnutrition Severe Malnutrition Non-severe (moderate) Malnutrition Severe Malnutrition Energy Intake <75% for >7 days = 50% for = 5 days <75% for = 1 month =75% for = 1 month Weight Loss 1-2% in one week, 5% in 1 month, 7.5% in 3 months 2% in one week, >5% in 1 month, >7.5% in 3 months 5% in one month, 7.5% in 3 months, 10% in 6 months, 20% in 1 year >5% in one month, >7.5% in 3 months, >10% in 6 months, >20% in 1 year Body Fat Wasting Mild Moderate Mild Severe Muscle Wasting Mild Moderate Mild Severe Presence of Edema Mild Moderate to Severe Mild Severe Photoengraving Photographer Strength Not applicable Measurably Reduced Not applicable Measurably Reduced Source: Greg McguireV, Cole P, Guzman G, et al. Consensus statement: Academy of Nutrition and Dietetics and [place] Society for Parenteral and Enteral Nutrition: characteristics recommended for the identification and documentation of adult malnutrition (undernutrition).JPLORENA J Parenter Enteral Nutr. 2012;36(3):275-283. (Template Last Revised: December 2022) MTDD
--- NOTE | 2024-03-16 22:03 | P.PN ---
Subjective Progress Note Date: 03/16/24 HISTORY OF PRESENT ILLNESS: 73-year-old one of my active office patient with history of Parkinson disease, hypertension, hyperlipidemia, with history of mild anxiety attacks as well who presented to the emergency department On March 13, 2024 with complaint of intractable nausea and vomiting for 2 days with significant abdominal pain and discomfort has been constipated early symptom persistent but denies any bloody emesis slightly but worsening abdominal pain with food or drink she has not had any bowel movement has been passing minimal amount of gas only the blood no fever or chills with her discomfort. End up coming to the emergency department was seen and evaluated surprisingly her white blood cell was 24,800 hemoglobin 14.4 sodium was 126 potassium 5.3 with carbon dioxide 21 bun 60 creatinine 1. 7 with lactic acid of 2.6 total bilirubin 2.3. CAT scan of the abdomen showed small bowel obstruction with dilated air-fluid level extending through the entire bowel loop to nearly the ileocecal valve with sonographic transition into the terminal ileum. Patient was admitted to medical service seen general surgery who reviewed found decided best action plan initially to keep patient n.p.o. NG tube to low suction control nausea and initiate Unasyn at the time with follow-up lab in the morning. Patient seen and evaluated this morning surprisingly her white blood cell dropped on 7320 with hemoglobin still normal her kidney function has improved significantly yesterday creatinine down to 1.1 this morning 8.7. Liver function test lactic acid are all back to normal her urine test from early came back slightly with abnormal surprisingly urine culture came back positive for gram- negative bacilli but blood culture still negative. Patient remained in the meanwhile on Unasyn which seem to control his symptoms. She is still have an NG tube on low suction her abdominal pain slightly bit better still no bleeding of any type and not passing any gas so far. No bowel movement. 03/12/2024: She is feeling slightly better today continue to have NG tube with close 220 mL out, x-ray was ordered this morning continue to show persistent marked. Of dilated small bowel which are increased in size and diameter which again sign of small bowel obstruction. Patient still seeing surgery and possibility and potential at this point between today and tomorrow if she is not having much resolved from her current complaint might need to go for surgery.. Fortunately her lab including white blood cell hemoglobin hematocrit are normal potassium is slightly low which require potassium replacement therapy. Kidney function is much better. REVIEW OF SYSTEMS: CONSTITUTIONAL: Well-developed no acute respiratory distress. EYES: No icterus sclerae, no conjunctivitis. EARS, NOSE, MOUTH, THROAT, and FACE: No sore throat, lymphadenopathy, carotid bruits or deformity. RESPIRATORY: No SOB cough or wheezes. CARDIOVASCULAR: No CP, Palpitation, PND, Orthopnea, or angina. GASTROINTESTINAL: Significant abdominal pain with nausea vomiting no diarrhea no bowel movement so far with partial bowel obstruction. GENITOURINARY: Negative for Hematuria or UTI, no kidney stones. INTEGUMENT/BREAST: Negative for any muscular injury with mild osteoarthritis.. HEMATOLOGIC/LYMPHATIC: Negative for bleed or purpura. MUSCULOSKELTAL: Negative for Myalgia or arthralgia. NEURLOGICAL: Diagnosed with parkinsonism along with tremor abnormal balance and gait. BEHAVIORAL/PSYCH: Negative. ENDOCRINE: Negative. PHYSICAL EXAMINATION: General Appearance: Alert, cooperative, no distress, appears stated age. Neck HEENT: Supple, no lymphadenopathy, no thyroid enlargement, no carotid bruits. Lungs: Clear to auscultation without crackles or wheezes no rhonchi, no deformity. Chest Wall: Decreased expansion with deep inspiration no tenderness and no deformity was found on exam, no costochondral pain or discomfort. Heart: Regular rate and rhythm, S1, S2 normal, no murmur, rub or gallop. Back: Symmetric, no curvature, ROM normal, no CVA tenderness. Abdomen: Soft slightly distended with slight discomfort epigastric and mid abdominal region area no rebound or rigidity not able to feel any mass distention is down still have slightly better hyper bowel sound. Extremities: Extremities normal, atraumatic, no cyanosis or edema. Pulses: 2+ and symmetric. Skin: Skin color, texture, tugor normal, no rashes or lesions. Neurologic: Alert oriented x3 cranial nerves II through XII intact, no motor de ficit, no abnormal balance or gait. ASSESSMENT AND PLAN: _Severe abdominal pain with nausea and vomiting secondary to bowel obstruction: Continue to see surgical consultation no plan for intervention at this point despite the distention in the bowel they are planning to do probably more testing with with small bowel follow-through with Gastrografin for further evaluation decline again patient is doing better clinically to continue NG tube and n.p.o. for now. _Severe leukocytosis on presentation which has resolved since the patient remain on Unasyn for sepsis. All culture with exception of urine is negative. _Small bowel obstruction: Still trying conservative management but might still require surgery. _Urinary tract infection with no sign of sepsis. Gram-negative bacilli was found remain on Unasyn currently we will continue current management. _Severe hyponatremia: Most likely from the complication related to nausea and vomiting close mild degree of SIADH continue conservative management with hydration repeat CMP with blood work. _Acute kidney injury secondary to acute tubular necrosis and probably prerenal acidemia: Continue hydration kidney function has improved significantly so far. _Parkinsonism: Remain on carbidopa levodopa continue vacation. _Hypertension: Continue amlodipine 2.5 mg a day along with propranolol 20 mg twice a day. _Gastritis and severe GERD has been on Carafate 1 g twice a day was earlier on pantoprazole. CODE STATUS: Full code. Discussion continue to see general surgery, continue n.p.o. and NG tube despite the clinical findings slightly better but I believe patient might end up going for surgery. Objective - Vital Signs Vital signs: Vital Signs Temp 97.8 F 03/16/24 01:49 Pulse 79 03/16/24 01:49 Resp 15 03/16/24 01:49 BP 143/80 03/16/24 01:49 Pulse Ox 95 03/16/24 01:49 FiO2 Intake & Output 03/15/24 03/15/24 03/16/24 06:59 18:59 06:59 Output Total 500 100 Balance -500 -100 Weight 40.823 kg Output: Gastric Drainage 100 Urine 500 Other: Voiding Method Toilet # Voids 2 1 - Labs CBC & Chem 7: 03/16/24 06:01 03/16/24 06:01 Labs: Abnormal Lab Results - Last 24 Hours (Table) 03/15/24 03/15/24 Range/Units 06:02 06:02 RBC 4.02 L (4.10-5.20) X 10*6/uL Hct 36.8 L (37.2-46.3) % Lymphocytes # (Manual) 0.37 L (0.90-5.00) X 10*3/uL Eosinophils # (Manual) 0 L (0.04-0.35) X 10*3/uL Crenated Cell 2+ A Anion Gap 15.40 H (4.00-12.00) mmol/L BUN/Creatinine Ratio 38.57 H (12.00-20.00) Ratio Calcium 8.6 L (8.7-10.3) mg/dL Alkaline Phosphatase 33 L (41-126) U/L Total Protein 5.4 L (6.2-8.2) g/dL Albumin 3.7 L (3.8-4.9) g/dL Microbiology - Last 24 Hours (Table) 03/13/24 21:20 Blood Culture - Preliminary Blood 03/13/24 20:13 Urine Culture - Preliminary Urine,Voided Gram Neg Bacilli
[2024-03-17 09:04] LABS: HCT 38.4 % (37.2-46.3); HGB 12.7 g/dL (12.0-15.0); MCH 30.5 pg (27.0-32.0); MCHC 33.1 g/dL (32.0-37.0); MCV 92.1 FL (80.0-97.0); Mean Platelet Volume 10.3 FL (9.5-12.2); NRBC Per 100 WBC 0 X 10*3/uL (0.00-0.01); Platelet Count 205 X 10*3/uL (140-440); RBC 4.17 X 10*6/uL (4.10-5.20); RDW 12.1 % (11.5-14.5); WBC 8.26 X 10*3/uL (4.50-10.00)
[2024-03-17 09:50] LABS: ALT 11 U/L (8-44); AST 17 U/L (13-35); Albumin 3.3 g/dL (3.8-4.9); Albumin/Globulin Ratio 2.06 Ratio (1.60-3.17); Alkaline Phosphatase 31 U/L (41-126); BUN/Creat Ratio 29.57 Ratio (12.00-20.00); Blood Urea Nitrogen 20.7 mg/dL (9.0-27.0); Calcium 8.4 mg/dL (8.7-10.3); Carbon Dioxide 22.4 mmol/L (21.6-31.8); Chloride 100 mmol/L (96-109); Globulin 1.6 g/dL (1.6-3.3); Glucose 69 mg/dL (70-110); Potassium 3.5 mmol/L (3.5-5.5); Sodium 138 mmol/L (135-145); Total Bilirubin 0.6 mg/dL (0.3-1.2); Total Protein 4.9 g/dL (6.2-8.2)
--- NOTE | 2024-03-17 12:11 | P.PN ---
Subjective Progress Note Date: 03/17/24 Patient with 2 bowel movements. She is undergoing small bowel follow-through. Objective - Vital Signs Vital signs: Vital Signs Temp 98.4 F 03/17/24 07:44 Pulse 87 03/17/24 07:44 Resp 16 03/17/24 07:44 BP 148/84 03/17/24 07:44 Pulse Ox 96 03/17/24 07:44 FiO2 Intake & Output 03/16/24 03/17/24 03/17/24 18:59 06:59 18:59 Intake Total 300 240 Output Total 400 Balance 300 -160 Intake: Oral 300 240 Output: Gastric Drainage 400 Other: Voiding Method Toilet # Voids 2 # Bowel Movements 1 - Constitutional General appearance: Present: cooperative, no acute distress - Gastrointestinal Gastrointestinal Comment(s): Soft, nontender, mild abdominal distention - Psychiatric Psychiatric: Present: A&O x's 3 - Labs CBC & Chem 7: 03/17/24 02:45 03/17/24 02:45 Labs: Abnormal Lab Results - Last 24 Hours (Table) 03/17/24 Range/Units 02:45 Anion Gap 15.60 H (4.00-12.00) mmol/L BUN/Creatinine Ratio 29.57 H (12.00-20.00) Ratio Glucose 69 L (70-110) mg/dL Calcium 8.4 L (8.7-10.3) mg/dL Alkaline Phosphatase 31 L (41-126) U/L Total Protein 4.9 L (6.2-8.2) g/dL Albumin 3.3 L (3.8-4.9) g/dL Microbiology - Last 24 Hours (Table) 03/13/24 20:13 Urine Culture - Final Urine,Voided Escherichia coli 03/13/24 21:20 Blood Culture - Preliminary Blood Assessment and Plan Plan: 73-year-old female with concern for small bowel obstruction. She is undergoing small bowel follow-through this morning. She does report additional bowel movements. We will evaluate final small bowel follow-through study and make decision on removal of nasogastric tube and advancement of diet at that point.
[2024-03-17] MEDS: diphenhydrAMINE 25 MG CAP PO PRN (21:32)
--- NOTE | 2024-03-17 23:10 | P.PN ---
Subjective Progress Note Date: 03/17/24 HISTORY OF PRESENT ILLNESS: 73-year-old one of my active office patient with history of Parkinson disease, hypertension, hyperlipidemia, with history of mild anxiety attacks as well who presented to the emergency department On March 13, 2024 with complaint of intractable nausea and vomiting for 2 days with significant abdominal pain and discomfort has been constipated early symptom persistent but denies any bloody emesis slightly but worsening abdominal pain with food or drink she has not had any bowel movement has been passing minimal amount of gas only the blood no fever or chills with her discomfort. End up coming to the emergency department was seen and evaluated surprisingly her white blood cell was 24,800 hemoglobin 14.4 sodium was 126 potassium 5.3 with carbon dioxide 21 bun 60 creatinine 1. 7 with lactic acid of 2.6 total bilirubin 2.3. CAT scan of the abdomen showed small bowel obstruction with dilated air-fluid level extending through the entire bowel loop to nearly the ileocecal valve with sonographic transition into the terminal ileum. Patient was admitted to medical service seen general surgery who reviewed found decided best action plan initially to keep patient n.p.o. NG tube to low suction control nausea and initiate Unasyn at the time with follow-up lab in the morning. Patient seen and evaluated this morning surprisingly her white blood cell dropped on 7320 with hemoglobin still normal her kidney function has improved significantly yesterday creatinine down to 1.1 this morning 8.7. Liver function test lactic acid are all back to normal her urine test from early came back slightly with abnormal surprisingly urine culture came back positive for gram- negative bacilli but blood culture still negative. Patient remained in the meanwhile on Unasyn which seem to control his symptoms. She is still have an NG tube on low suction her abdominal pain slightly bit better still no bleeding of any type and not passing any gas so far. No bowel movement. 03/16/2024: She is feeling slightly better today continue to have NG tube with close 220 mL out, x-ray was ordered this morning continue to show persistent marked. Of dilated small bowel which are increased in size and diameter which again sign of small bowel obstruction. Patient still seeing surgery and possibility and potential at this point between today and tomorrow if she is not having much resolved from her current complaint might need to go for surgery.. Fortunately her lab including white blood cell hemoglobin hematocrit are normal potassium is slightly low which require potassium replacement therapy. Kidney function is much better. 03/17/2024: She had small bowel movements morning was ordered to go for small bowel x-ray follow-through with Gastrografin. Patient will be seen general surgery afterward to decide whether for best interest to require any intervention or not. Review the test the patient does not require to go for any surgery, she had few smaller bowel movement will consider to wait at this point before rushing for surgery. Pain still under control, laboratory value is not showing any anemia or elevated white blood cell creatinine at 0.7 GFR still high at 92. REVIEW OF SYSTEMS: CONSTITUTIONAL: Well-developed no acute respiratory distress. EYES: No icterus sclerae, no conjunctivitis. EARS, NOSE, MOUTH, THROAT, and FACE: No sore throat, lymphadenopathy, carotid b ruits or deformity. RESPIRATORY: No SOB cough or wheezes. CARDIOVASCULAR: No CP, Palpitation, PND, Orthopnea, or angina. GASTROINTESTINAL: Significant abdominal pain with nausea vomiting no diarrhea no bowel movement so far with partial bowel obstruction. GENITOURINARY: Negative for Hematuria or UTI, no kidney stones. INTEGUMENT/BREAST: Negative for any muscular injury with mild osteoarthritis.. HEMATOLOGIC/LYMPHATIC: Negative for bleed or purpura. MUSCULOSKELTAL: Negative for Myalgia or arthralgia. NEURLOGICAL: Diagnosed with parkinsonism along with tremor abnormal balance and gait. BEHAVIORAL/PSYCH: Negative. ENDOCRINE: Negative. PHYSICAL EXAMINATION: General Appearance: Alert, cooperative, no distress, appears stated age. Neck HEENT: Supple, no lymphadenopathy, no thyroid enlargement, no carotid bruits. Lungs: Clear to auscultation without crackles or wheezes no rhonchi, no deformity. Chest Wall: Decreased expansion with deep inspiration no tenderness and no deformity was found on exam, no costochondral pain or discomfort. Heart: Regular rate and rhythm, S1, S2 normal, no murmur, rub or gallop. Back: Symmetric, no curvature, ROM normal, no CVA tenderness. Abdomen: Soft slightly distended with slight discomfort epigastric and mid abdominal region area no rebound or rigidity not able to feel any mass distention is down still have slightly better hyper bowel sound. Extremities: Extremities normal, atraumatic, no cyanosis or edema. Pulses: 2+ and symmetric. Skin: Skin color, texture, tugor normal, no rashes or lesions. Neurologic: Alert oriented x3 cranial nerves II through XII intact, no motor deficit, no abnormal balance or gait. ASSESSMENT AND PLAN: _Severe abdominal pain with partial bowel obstruction: Still have NG tube suction along with n.p.o. she is going for small bowel follow-through will Gastrografin. _Severe leukocytosis on presentation which has resolved since the patient remain on Unasyn for sepsis. All culture with exception of urine is negative. _Small bowel obstruction: Still on conservative management no surgical intervention required small bowel x-ray will be done. _Urinary tract infection with no sign of sepsis. Gram-negative bacilli was found remain on Unasyn currently we will continue current management. _Severe hyponatremia: Most likely from the complication related to nausea and vomiting close mild degree of SIADH continue conservative management with hydration repeat CMP with blood work. _Acute kidney injury secondary to acute tubular necrosis and probably prerenal acidemia: Continue hydration kidney function has improved significantly so far. _Parkinsonism: Remain on carbidopa levodopa continue vacation. _Hypertension: Continue amlodipine 2.5 mg a day along with propranolol 20 mg twice a day. _Gastritis and severe GERD has been on Carafate 1 g twice a day was earlier on pantoprazole. CODE STATUS: Full code. Discussion: After testing today patient NG tube might come out tomorrow and try to do oral full liquid initially and advance gradually see if she will improve. Objective - Vital Signs Vital signs: Vital Signs Temp 97.4 F L 03/17/24 00:52 Pulse 78 03/17/24 00:52 Resp 14 03/17/24 00:52 BP 134/79 03/17/24 00:52 Pulse Ox 96 03/17/24 00:52 FiO2 Intake & Output 03/16/24 03/16/24 03/17/24 06:59 18:59 06:59 Intake Total 300 240 Output Total 100 400 Balance -100 300 -160 Intake: Oral 300 240 Output: Gastric Drainage 100 400 Other: Voiding Method Toilet Toilet # Voids 1 2 # Bowel Movements 1 - Labs CBC & Chem 7: 03/17/24 02:45 03/17/24 02:45 Labs: Abnormal Lab Results - Last 24 Hours (Table) 03/16/24 Range/Units 06:01 Potassium 3.3 L (3.5-5.5) mmol/L Anion Gap 17.40 H (4.00-12.00) mmol/L BUN/Creatinine Ratio 33.29 H (12.00-20.00) Ratio Calcium 8.5 L (8.7-10.3) mg/dL Alkaline Phosphatase 32 L (41-126) U/L Total Protein 5.1 L (6.2-8.2) g/dL Albumin 3.5 L (3.8-4.9) g/dL Microbiology - Last 24 Hours (Table) 03/13/24 20:13 Urine Culture - Final Urine,Voided Escherichia coli 03/13/24 21:20 Blood Culture - Preliminary Blood
[2024-03-18] MEDS: DEXTROSE 5% IN WATER 1,000 ML IV SCH (06:09)
--- NOTE | 2024-03-18 07:43 | FL ---
EXAMINATION TYPE: FL small bowel follow through DATE OF EXAM: 03/18/2024 CLINICAL HISTORY: TECHNIQUE: A single contrast small bowel follow through is performed utilizing barium. COMPARISON: None FINDINGS: Thread Cutter image of the abdomen shows nondilated small bowel loops. G-tube noted. Bilateral con solidation and small effusion at the lung bases. Surgical clips gallbladder fossa. Diffuse osteopenia and degenerative changes spine. Contrast is seen within numerous dilated small bowel loops. There is delayed transit of the colon whi ch is not seen at 435 minutes. No definitive contrast in the colon. Findings are suggestive of bowel obstruction. IMPRESSION: 1. Dilated small bowel loops with no contrast within the colon at 435 minutes compatible with a trans it. Findings are suggestive of bowel obstruction. [facility], , 03/18/2024 7:41 AM
--- NOTE | 2024-03-18 07:58 | P.PN ---
Subjective Progress Note Date: 03/18/24 HISTORY OF PRESENT ILLNESS: 73-year-old one of my active office patient with history of Parkinson disease, hypertension, hyperlipidemia, with history of mild anxiety attacks as well who presented to the emergency department On March 13, 2024 with complaint of intractable nausea and vomiting for 2 days with significant abdominal pain and discomfort has been constipated early symptom persistent but denies any bloody emesis slightly but worsening abdominal pain with food or drink she has not had any bowel movement has been passing minimal amount of gas only the blood no fever or chills with her discomfort. End up coming to the emergency department was seen and evaluated surprisingly her white blood cell was 24,800 hemoglobin 14.4 sodium was 126 potassium 5.3 with carbon dioxide 21 bun 60 creatinine 1. 7 with lactic acid of 2.6 total bilirubin 2.3. CAT scan of the abdomen showed small bowel obstruction with dilated air-fluid level extending through the entire bowel loop to nearly the ileocecal valve with sonographic transition into the terminal ileum. Patient was admitted to medical service seen general surgery who reviewed found decided best action plan initially to keep patient n.p.o. NG tube to low suction control nausea and initiate Unasyn at the time with follow-up lab in the morning. Patient seen and evaluated this morning surprisingly her white blood cell dropped on 7320 with hemoglobin still normal her kidney function has improved significantly yesterday creatinine down to 1.1 this morning 8.7. Liver function test lactic acid are all back to normal her urine test from early came back slightly with abnormal surprisingly urine culture came back positive for gram- negative bacilli but blood culture still negative. Patient remained in the meanwhile on Unasyn which seem to control his symptoms. She is still have an NG tube on low suction her abdominal pain slightly bit better still no bleeding of any type and not passing any gas so far. No bowel movement. 03/16/2024: She is feeling slightly better today continue to have NG tube with close 220 mL out, x-ray was ordered this morning continue to show persistent marked. Of dilated small bowel which are increased in size and diameter which again sign of small bowel obstruction. Patient still seeing surgery and possibility and potential at this point between today and tomorrow if she is not having much resolved from her current complaint might need to go for surgery.. Fortunately her lab including white blood cell hemoglobin hematocrit are normal potassium is slightly low which require potassium replacement therapy. Kidney function is much better. 03/17/2024: She had small bowel movements morning was ordered to go for small bowel x-ray follow-through with Gastrografin. Patient will be seen general surgery afterward to decide whether for best interest to require any intervention or not. Review the test the patient does not require to go for any surgery, she had few smaller bowel movement will consider to wait at this point before rushing for surgery. Pain still under control, laboratory value is not showing any anemia or elevated white blood cell creatinine at 0.7 GFR still high at 92. 03/18/2024: Patient had slight incident this morning falling in the bathroom she had slight hypoglycemia. Her IV was changed to D5 W she is having slight sugar with her IV her blood sugar hopefully will be collected from [facility], patient never been diagnosed with diabetes before. Patient continued to have quite output out of the NG tube has not been resolved review her small bowel series yesterday shows obstruction. At this point I do not think avoiding surgery is an option anymore waiting for the surgical service to make that conclusion. I have talked with the patient about that option and was going on she is probably will be ready to go for surgery sometimes today. REVIEW OF SYSTEMS: CONSTITUTIONAL: Well-developed no acute respiratory distress. EYES: No icterus sclerae, no conjunctivitis. EARS, NOSE, MOUTH, THROAT, and FACE: No sore throat, lymphadenopathy, carotid bruits or deformity. RESPIRATORY: No SOB cough or wheezes. CARDIOVASCULAR: No CP, Palpitation, PND, Orthopnea, or angina. GASTROINTESTINAL: Significant abdominal pain with nausea vomiting no diarrhea no bowel movement so far with partial bowel obstruction. GENITOURINARY: Negative for Hematuria or UTI, no kidney stones. INTEGUMENT/BREAST: Negative for any muscular injury with mild osteoarthritis.. HEMATOLOGIC/LYMPHATIC: Negative for bleed or purpura. MUSCULOSKELTAL: Negative for Myalgia or arthralgia. NEURLOGICAL: Diagnosed with parkinsonism along with tremor abnormal balance and gait. BEHAVIORAL/PSYCH: Negative. ENDOCRINE: Negative. PHYSICAL EXAMINATION: General Appearance: Alert, cooperative, no distress, appears stated age. Neck HEENT: Supple, no lymphadenopathy, no thyroid enlargement, no carotid bruits. Lungs: Clear to auscultation without crackles or wheezes no rhonchi, no defor mity. Chest Wall: Decreased expansion with deep inspiration no tenderness and no deformity was found on exam, no costochondral pain or discomfort. Heart: Regular rate and rhythm, S1, S2 normal, no murmur, rub or gallop. Back: Symmetric, no curvature, ROM normal, no CVA tenderness. Abdomen: Soft slightly distended with slight discomfort epigastric and mid abdominal region area no rebound or rigidity not able to feel any mass distention is down still have slightly better hyper bowel sound. Extremities: Extremities normal, atraumatic, no cyanosis or edema. Pulses: 2+ and symmetric. Skin: Skin color, texture, tugor normal, no rashes or lesions. Neurologic: Alert oriented x3 cranial nerves II through XII intact, no motor deficit, no abnormal balance or gait. ASSESSMENT AND PLAN: _Severe abdominal pain with partial bowel obstruction: Secondary to small bowel obstruction her small bowel series still showing obstruction at this point might require surgery. _Severe leukocytosis on presentation which has resolved since the patient remain on Unasyn for sepsis. All culture with exception of urine is negative. _Small bowel obstruction: Has not resolved last few days despite having the NG tube and conservative management the small bowel series still showing slight degree of obstruction might require surgical intervention. _Urinary tract infection with no sign of sepsis. Gram-negative bacilli was found remain on Unasyn currently we will continue current management. _Severe hyponatremia: Most likely from the complication related to nausea and vomiting close mild degree of SIADH continue conservative management with hydration repeat CMP with blood work. _Acute kidney injury secondary to acute tubular necrosis and probably prerenal acidemia: Continue hydration kidney function has improved significantly so far. _Parkinsonism: Remain on carbidopa levodopa continue vacation. _Severe hypoglycemia: Patient had hypoglycemia most likely from lack of nutr ition her IV was changed to D5W and will continue probably Ringer lactate later on to correct her blood sugar Accu-Chek will be done she does need sliding scales she is not high she is just slightly bit low. _Hypertension: Continue amlodipine 2.5 mg a day along with propranolol 20 mg twice a day. _Gastritis and severe GERD has been on Carafate 1 g twice a day was earlier on pantoprazole. CODE STATUS: Full code. Discussion: Continue to be watched by general surgery but she is probably can need to go for surgery for partial but mostly obstruction require surgical intervention. Objective - Vital Signs Vital signs: Vital Signs Temp 98.0 F 09/26/24 01:08 Pulse 92 03/18/24 01:08 Resp 14 03/18/24 01:08 BP 144/83 03/18/24 01:08 Pulse Ox 94 L 03/18/24 01:08 FiO2 Intake & Output 03/17/24 03/17/24 03/18/24 06:59 18:59 06:59 Intake Total 240 Output Total 400 1000 Balance -160 -1000 Weight 40.823 kg Intake: Oral 240 Output: Gastric Drainage 400 1000 Other: Voiding Method Toilet Toilet # Voids 2 1 # Bowel Movements 1 - Labs CBC & Chem 7: 03/17/24 02:45 03/17/24 02:45 Labs: Abnormal Lab Results - Last 24 Hours (Table) 03/17/24 Range/Units 02:45 Anion Gap 15.60 H (4.00-12.00) mmol/L BUN/Creatinine Ratio 29.57 H (12.00-20.00) Ratio Glucose 69 L (70-110) mg/dL Calcium 8.4 L (8.7-10.3) mg/dL Alkaline Phosphatase 31 L (41-126) U/L Total Protein 4.9 L (6.2-8.2) g/dL Albumin 3.3 L (3.8-4.9) g/dL Microbiology - Last 24 Hours (Table) 03/13/24 21:20 Blood Culture - Preliminary Blood
--- NOTE | 2024-03-18 10:37 | XR ---
EXAMINATION TYPE: XR abdomen 2V DATE OF EXAM: 03/18/2024 COMPARISON: 03/17/2024 HISTORY: Bowel obstruction TECHNIQUE: Two view abdominal series FINDINGS: The osseous structures are intact. A markedly dilated small bowel loops with air-fluid levels. Estima abraham maximal distention of 5.7 cm. Contrast is seen within the small bowel loops extending in the pelv is. No definitive contrast within the colon. NG tube stable in position with bilateral lower lobe infiltrate and small effusion. Osteopenia, and d egenerative change of the spine. Arthropathy of the hips. Calcifications are likely vascular. Previou s cholecystectomy clips are noted. IMPRESSION: 1. Persistent distended bowel loops with air-fluid levels and contrast seen within the small bowel. F indings compatible with bowel obstruction. No definitive contrast within the colon. 2. Small bilateral pleural effusion with basilar atelectasis or infiltrate. [facility], , 03/18/2024 10:34 AM
[2024-03-18 11:49] LABS: Glucose,Whole Blood 76 mg/dL (70-110)
[2024-03-18 11:50] LABS: Glucose,Whole Blood 117 mg/dL (70-110)
--- NOTE | 2024-03-18 12:56 | P.PN ---
Subjective Progress Note Date: 03/18/24 CHIEF COMPLAINT: SBO HISTORY OF PRESENT ILLNESS: Patient complains of feeling weak and tired. She did have a fall in the bathroom today. She denies any new injury. She did report 2 bowel movements yesterday. But still feeling distended and nauseous at times. And occasionally has episodes of abdominal pain. NG tube with 1000 mL out through the night and 500 mL bilious output this morning. Small bowel follow-through completed reported dilated small bowel loops with no contrast within the colon. Findings are suggestive of bowel obstruction. Afebrile. WBC 8.26 Hgb 12.7 sodium 138 potassium 3.5 creatinine 0.7 albumin 3.3 PHYSICAL EXAM: VITAL SIGNS: Reviewed. GENERAL: Well-developed in no acute distress. ABDOMEN: Soft. Mildly distended. Diffuse tenderness. NEUROLOGIC: Alert and oriented. Cranial nerves II through XII grossly intact. ASSESSMENT: 1. Small bowel obstruction 2. History of abdominal surgeries 3. Moderate protein calorie malnutrition PLAN: -Patient is scheduled for exploratory laparotomy with possible bowel resection today with Dr. Carvalho -Continue NG tube for decompression -Keep patient n.p.o. -Consult IR service for PICC line placement for TPN -Consult dietitian for initiation of TPN -Continue antibiotics -Continue IV fluids Physician Piece Hand note has been reviewed by physician. Signing provider agrees with the documented findings, assessment, and plan of care. Objective - Vital Signs Vital signs: Vital Signs Temp 97.7 F 03/18/24 07:36 Pulse 96 03/18/24 07:36 Resp 17 03/18/24 07:36 BP 143/83 03/18/24 07:36 Pulse Ox 96 03/18/24 07:36 FiO2 Intake & Output 03/17/24 03/18/24 03/18/24 18:59 06:59 18:59 Output Total 1000 500 Balance -1000 -500 Weight 40.823 kg Output: Gastric Drainage 1000 500 Other: Voiding Method Toilet # Voids 2 - Labs CBC & Chem 7: 03/17/24 02:45 03/17/24 02:45 Labs: Microbiology - Last 24 Hours (Table) 03/13/24 21:20 Blood Culture - Preliminary Blood
[2024-03-18 13:20] LABS: INR 1.1 (<1.2); Prothrombin Time 11.9 sec (10.0-12.5)
[2024-03-18] MEDS: IV FLUID CONTINUATION 1,000 ML IV ONE (14:07)
[2024-03-18] MEDS ORDERED: PHENYLEPHRINE-0.9% NACL SYG 1,000 MCG/10 ML SYRINGE ONE (14:36)
[2024-03-18] MEDS ORDERED: SUCCINYLCHOLINE CHLORIDE 200 MG/10 ML VIAL IV ONE (14:36)
[2024-03-18] MEDS ORDERED: LIDOCAINE 1% INJ 10MG/ML (20 ML MDV) ONE (14:36)
[2024-03-18] MEDS ORDERED: ONDANSETRON 4 MG/2 ML VIAL ONE (14:36)
[2024-03-18] MEDS ORDERED: MIDAZOLAM 2 MG/2 ML VIAL ONE (14:36)
[2024-03-18] MEDS ORDERED: DEXAMETHASONE SOD PHOSPHATE 4 MG/ML 1 ML VIAL ONE (14:36)
[2024-03-18] MEDS ORDERED: fentaNYL (PF) 50 MCG/ML 2 ML AMP ONE (14:36)
[2024-03-18] MEDS ORDERED: ROCURONIUM 10 MG/ML (5 ML VIAL) IV ONE (14:36)
[2024-03-18] MEDS ORDERED: NEOSTIGMINE 1 MG/ML 10 ML VIAL ONE (14:36)
[2024-03-18] MEDS ORDERED: PROPOFOL 10 MG/ML 20 ML VIAL IV ONE (14:36)
[2024-03-18] MEDS ORDERED: GLYCOPYRROLATE 0.2 MG/ML 2 ML VIAL ONE (14:36)
[2024-03-18] MEDS: LACTATED RINGERS 1,000 ML IV ONE (15:39)
[2024-03-18 17:16] LABS: Ionized Calcium 4.6 mg/dL (4.5-5.3)
[2024-03-18 17:21] LABS: Glucose,Whole Blood 90 mg/dL (70-110)
[2024-03-18 17:27] LABS: African American GFR (CKD) 89 (>60 ml/min/1.73 sqM); Anion Gap 4 mmol/L; Blood Urea Nitrogen 23 mg/dL (7-17); Carbon Dioxide 29 mmol/L (22-30); Chloride 105 mmol/L (98-107); Glucose 101 mg/dL (74-99); Magnesium 1.7 mg/dL (1.6-2.3); Non-African American GFR(CKD) 77 (>60 ml/min/1.73 sqM); Phosphorus 1.7 mg/dL (2.5-4.5); Sodium 138 mmol/L (137-145)
[2024-03-18] MEDS: DEXTROSE 5%-0.45% NACL 1,000 ML IV SCH (17:50)
[2024-03-18] MEDS: MAGNESIUM SULFATE-D5W PMX 1 GM in DEXTROSE/WATER 1 100ML.BAG IVPB ONE (17:51)
[2024-03-18] MEDS: ACETAMINOPHEN IVPB SCH (17:58)
[2024-03-18] MEDS: MVI, ADULT NO.4 WITH VIT K 10 ML, TRACE (CONC-1ML/DOSE) 1 ML in AMINO ACID 5%-D15W+LYTE... IV SCH (20:31)
[2024-03-18] MEDS: FAT EMULSION 20% 250 ML IV SCH (20:35)
[2024-03-18] MEDS: POTASSIUM PHOSPHATE 30 MMOL in DEXTROSE 5% IN WATER 250 ML IV ONE (21:16)
[2024-03-18 21:43] LABS: Glucose,Whole Blood 218 mg/dL (70-110)
--- NOTE | 2024-03-18 22:44 | P.OP ---
Date of Procedure: 03/18/24 Preoperative Diagnosis: small bowel obstruction Postoperative Diagnosis: small bowel obstruction Procedure(s) Performed: exploratory laparotomy with lysis of adhesions greater than 2/3 case Anesthesia: MAUREENA Surgeon: iMchael Sexton Pathology: none sent Condition: stable Disposition: floor Indications for Procedure: small bowel obstruction Operative Findings: small bowel obstruction Description of Procedure: Patient was brought to the opeative suite where he was cleaned and draped in sterile fashion. A timeout was peformed and everyone agreed with the information recited. Next a number 10 blade was then used to make a midline incision. Electrocautery was then used to dissect down through the peritoneum. A serous colored fluid was encountered along with dilated bowel. The bowel was eviscerated and ran distally to the cecum where a large adhesive band was encountered. This was ligated using electrocautery and the bowel was untwisted and placed in its anatomical location. The bowel was then ran proximal to the ligament of treitz without difficulty. the bowel was milked distally to allow for decompression. The fluid was suctioned out and the abdomen was closed using 1-0 pds suture in a cephalad to caudad and a caudad to cephalad fashion. The skin was closed using puma and the patient was transferred to the floor in stable condition.
[2024-03-19 05:34] LABS: Glucose,Whole Blood 303 mg/dL (70-110)
[2024-03-19 07:51] LABS: African American GFR (CKD) >90 (>60 ml/min/1.73 sqM); Anion Gap 2 mmol/L; Blood Urea Nitrogen 17 mg/dL (7-17); Calcium 7.4 mg/dL (8.4-10.2); Carbon Dioxide 31 mmol/L (22-30); Chloride 101 mmol/L (98-107); Glucose 264 mg/dL (74-99); Magnesium 1.7 mg/dL (1.6-2.3); Non-African American GFR(CKD) >90 (>60 ml/min/1.73 sqM); Phosphorus 2.5 mg/dL (2.5-4.5); Potassium 3.3 mmol/L (3.5-5.1); Sodium 134 mmol/L (137-145)
--- NOTE | 2024-03-19 11:12 | P.PN ---
Subjective Progress Note Date: 03/19/24 HISTORY OF PRESENT ILLNESS: 73-year-old one of my active office patient with history of Parkinson disease, hypertension, hyperlipidemia, with history of mild anxiety attacks as well who presented to the emergency department On March 13, 2024 with complaint of intractable nausea and vomiting for 2 days with significant abdominal pain and discomfort has been constipated early symptom persistent but denies any bloody emesis slightly but worsening abdominal pain with food or drink she has not had any bowel movement has been passing minimal amount of gas only the blood no fever or chills with her discomfort. End up coming to the emergency department was seen and evaluated surprisingly her white blood cell was 24,800 hemoglobin 14.4 sodium was 126 potassium 5.3 with carbon dioxide 21 bun 60 creatinine 1. 7 with lactic acid of 2.6 total bilirubin 2.3. CAT scan of the abdomen showed small bowel obstruction with dilated air-fluid level extending through the entire bowel loop to nearly the ileocecal valve with sonographic transition into the terminal ileum. Patient was admitted to medical service seen general surgery who reviewed found decided best action plan initially to keep patient n.p.o. NG tube to low suction control nausea and initiate Unasyn at the time with follow-up lab in the morning. Patient seen and evaluated this morning surprisingly her white blood cell dropped on 7320 with hemoglobin still normal her kidney function has improved significantly yesterday creatinine down to 1.1 this morning 8.7. Liver function test lactic acid are all back to normal her urine test from early came back slightly with abnormal surprisingly urine culture came back positive for gram- negative bacilli but blood culture still negative. Patient remained in the meanwhile on Unasyn which seem to control his symptoms. She is still have an NG tube on low suction her abdominal pain slightly bit better still no bleeding of any type and not passing any gas so far. No bowel movement. 03/16/2024: She is feeling slightly better today continue to have NG tube with close 220 mL out, x-ray was ordered this morning continue to show persistent marked. Of dilated small bowel which are increased in size and diameter which again sign of small bowel obstruction. Patient still seeing surgery and possibility and potential at this point between today and tomorrow if she is not having much resolved from her current complaint might need to go for surgery.. Fortunately her lab including white blood cell hemoglobin hematocrit are normal potassium is slightly low which require potassium replacement therapy. Kidney function is much better. 03/17/2024: She had small bowel movements morning was ordered to go for small bowel x-ray follow-through with Gastrografin. Patient will be seen general surgery afterward to decide whether for best interest to require any intervention or not. Review the test the patient does not require to go for any surgery, she had few smaller bowel movement will consider to wait at this point before rushing for surgery. Pain still under control, laboratory value is not showing any anemia or elevated white blood cell creatinine at 0.7 GFR still high at 92. 03/18/2024: Patient had slight incident this morning falling in the bathroom she had slight hypoglycemia. Her IV was changed to D5 W she is having slight sugar with her IV her blood sugar hopefully will be collected from [place], patient never been diagnosed with diabetes before. Patient continued to have quite output out of the NG tube has not been resolved review her small bowel series yesterday shows obstruction. At this point I do not think avoiding surgery is an option anymore waiting for the surgical service to make that conclusion. I have talked with the patient about that option and was going on she is probably will be ready to go for surgery sometimes today. 03/19/2024: Patient is doing much better today she had her surgery for lysis of adhesion and bowel obstruction successfully yesterday as an exploratory, she is resting in bed this morning still have an NG tube still have her TPN, no increased pain no increased nausea or vomiting. Apparently general surgery milligram this morning and they are planning possibly to pull the NG tube out later today and start patient on clear liquid diet that is to be determined case patient still more symptomatic her NG tube still suctioning some of this point. REVIEW OF SYSTEMS: CONSTITUTIONAL: Well-developed no acute respiratory distress. EYES: No icterus sclerae, no conjunctivitis. EARS, NOSE, MOUTH, THROAT, and FACE: No sore throat, lymphadenopathy, carotid bruits or deformity. RESPIRATORY: No SOB cough or wheezes. CARDIOVASCULAR: No CP, Palpitation, PND, Orthopnea, or angina. GASTROINTESTINAL: Significant abdominal pain with nausea vomiting no diarrhea no bowel movement so far with partial bowel obstruction. GENITOURINARY: Negative for Hematuria or UTI, no kidney stones. INTEGUMENT/BREAST: Negative for any muscular injury with mild osteoarthritis.. HEMATOLOGIC/LYMPHATIC: Negative for bleed or purpura. MUSCULOSKELTAL: Negative for Myalgia or arthralgia. NEURLOGICAL: Diagnosed with parkinsonism along with tremor abnormal balance and gait. BEHAVIORAL/PSYCH: Negative. ENDOCRINE: Negative. PHYSICAL EXAMINATION: General Appearance: Alert, cooperative, no distress, appears stated age. Neck HEENT: Supple, no lymphadenopathy, no thyroid enlargement, no carotid bruits. Lungs: Clear to auscultation without crackles or wheezes no rhonchi, no deformity. Chest Wall: Decreased expansion with deep inspiration no tenderness and no deformity was found on exam, no costochondral pain or discomfort. Heart: Regular rate and rhythm, S1, S2 normal, no murmur, rub or gallop. Back: Symmetric, no curvature, ROM normal, no CVA tenderness. Abdomen: Soft slightly distended with slight discomfort epigastric and mid abdominal region area no rebound or rigidity not able to feel any mass distention is down still have slightly better hyper bowel sound. Extremities: Extremities normal, atraumatic, no cyanosis or edema. Pulses: 2+ and symmetric. Skin: Skin color, texture, tugor normal, no rashes or lesions. Neurologic: Alert oriented x3 cranial nerves II through XII intact, no motor deficit, no abnormal balance or gait. ASSESSMENT AND PLAN: _Severe abdominal pain with partial bowel obstruction: Postsurgery with lysis of adhesion with exploratory has been doing much better so far. _Severe leukocytosis on presentation was secondary to bowel obstruction possible infection but better so far. _Small bowel obstruction: Postsurgery still have NG tube and still have TPN at this point no food by mouth. _Malnutrition: Patient to be continue on TPN she is significantly underweight beside her bowel obstruction will continue TPN probably till Friday. _Urinary tract infection with no sign of sepsis. Gram-negative bacilli was found remain on Unasyn currently we will continue current management. _Severe hyponatremia: Continue hydration had resolved so far and doing well. _Acute kidney injury secondary to acute tubular necrosis and probably prerenal acidemia: Continue hydration kidney function has improved significantly so far. _Parkinsonism: Remain on carbidopa levodopa continue vacation. _Severe hypoglycemia: Patient had hypoglycemia most likely from lack of nutrit ion her IV was changed to D5W and will continue probably Ringer lactate later on to correct her blood sugar Accu-Chek will be done she does need sliding scales she is not high she is just slightly bit low. _Hypertension: Continue amlodipine 2.5 mg a day along with propranolol 20 mg twice a day. _Gastritis and severe GERD has been on Carafate 1 g twice a day was earlier on pantoprazole. CODE STATUS: Full code. Discussion: Patient had her surgery yesterday she is feeling much better pain is under control continue to have TPN continue to have her NG tube for at least another day. Objective - Vital Signs Vital signs: Vital Signs Temp 98.2 F 03/19/24 02:00 Pulse 93 03/19/24 02:00 Resp 16 03/18/24 20:00 BP 147/76 03/19/24 02:00 Pulse Ox 95 03/19/24 02:00 FiO2 Intake & Output 03/18/24 03/19/24 03/19/24 18:59 06:59 18:59 Intake Total 1200 100 Output Total 115 Balance 1085 100 Weight 40.823 kg Intake: IV 1200 Intake, IV Titration 100 Amount Potassium Phosphate 30 100 mmol In Dextrose 5% in Water 250 ml @ 57.778 mls /hr IV ONCE ONE Rx#: [id number] Output: Urine 100 Estimated Blood Loss 15 Other: Voiding Method Indwelling Catheter - Labs CBC & Chem 7: 03/17/24 02:45 03/19/24 06:44 Labs: Abnormal Lab Results - Last 24 Hours (Table) 03/18/24 03/18/24 03/18/24 Range/Units 11:48 16:54 21:42 Potassium 3.0 L (3.5-5.1) mmol/L BUN 23 H (7-17) mg/dL Glucose 101 H (74-99) mg/dL POC Glucose (mg/dL) 117 H 218 H (70-110) mg/dL Calcium 8.0 L (8.4-10.2) mg/dL Phosphorus 1.7 L (2.5-4.5) mg/dL 03/19/24 Range/Units 05:32 Potassium (3.5-5.1) mmol/L BUN (7-17) mg/dL Glucose (74-99) mg/dL POC Glucose (mg/dL) 303 H (70-110) mg/dL Calcium (8.4-10.2) mg/dL Phosphorus (2.5-4.5) mg/dL
[2024-03-19] MEDS: MAGNESIUM SULFATE-D5W PMX 1 GM in DEXTROSE/WATER 1 100ML.BAG IVPB ONE (11:26)
[2024-03-19] MEDS: POTASSIUM CHLORIDE 20 MEQ in WATER FOR INJECTION 1 100ML.BAG IVPB SCH (11:53)
[2024-03-19 12:11] LABS: Glucose,Whole Blood 212 mg/dL (70-110)
--- NOTE | 2024-03-19 14:29 | P.PN ---
Subjective Progress Note Date: 03/19/24 CHIEF COMPLAINT: SBO HISTORY OF PRESENT ILLNESS: Patient is status post exploratory laparotomy with lysis of adhesions. Patient reports her pain is controlled. She denies any bowel activity. Denies any nausea. Minimal output from the NG tube. Afebrile. Mildly tachycardic now resolved. Potassium 3.3 and being replaced PHYSICAL EXAM: VITAL SIGNS: Reviewed. GENERAL: Well-developed in no acute distress. ABDOMEN: Soft. Mildly distended. Incisional dressing clean dry and intact. NEUROLOGIC: Alert and oriented. Cranial nerves II through XII grossly intact. ASSESSMENT: 1. Small bowel obstruction status post exploratory laparotomy with lysis of adhesions 2. History of abdominal surgeries 3. Moderate protein calorie malnutrition 4. Hypokalemia PLAN: -Continue NG tube for decompression -Once patient starts having flatus we will advance diet to clear liquids and discontinue NG tube -Continue TPN for nutrition support -Potassium being replaced -Continue antibiotics -DVT prophylaxis subcu heparin and GI prophylaxis Pepcid Physician Night Stocker note has been reviewed by physician. Signing provider agrees with the documented findings, assessment, and plan of care. Objective - Vital Signs Vital signs: Vital Signs Temp 98.3 F 03/19/24 13:14 Pulse 91 03/19/24 13:14 Resp 16 03/19/24 13:14 BP 146/80 03/19/24 13:14 Pulse Ox 96 03/19/24 13:14 FiO2 Intake & Output 03/18/24 03/19/24 03/19/24 18:59 06:59 18:59 Intake Total 1200 2000 Output Total 115 650 Balance 1085 1350 Weight 40.823 kg Intake: IV 1200 Intake, IV Titration 2000 Amount ACETAMINOPHEN IV (For NPO 50 ) 620 mg In Empty Bag 1 bag @ 248 mls/hr IVPB Q8H [facility] Rx#:[id number] Ampicillin-Sulbactam 3 gm 100 In Sodium Chloride 0.9% 100 ml @ 200 mls/hr IVPB Q8H [facility] Rx#:[id number] Dextrose 5%-0.45% NaCl 1, 900 000 ml @ 75 mls/hr IV . [id number] [facility] Rx#:[id number] Fat Emulsion 20% 250 ml @ 240 20.833 mls/hr IV MoTh@ 2000 [facility] Rx#:[id number] Mvi, Adult No.4 with Vit 360 K 10 ml Trace (Conc-1Ml/ Dose) 1 ml In Amino Acid 5%-D15w+Lytes*E* 1,000 ml @ 30 mls/hr IV .Q24H [facility] Rx#:[id number] Potassium Phosphate 30 350 mmol In Dextrose 5% in Water 250 ml @ 57.778 mls /hr IV ONCE ONE Rx#: [id number] Output: Urine 100 650 Estimated Blood Loss 15 Other: Voiding Method Indwelling Catheter - Labs CBC & Chem 7: 03/17/24 02:45 03/19/24 06:44 Labs: Abnormal Lab Results - Last 24 Hours (Table) 03/18/24 03/18/24 03/19/24 Range/Units 16:54 21:42 05:32 Sodium (137-145) mmol/L Potassium 3.0 L (3.5-5.1) mmol/L Carbon Dioxide (22-30) mmol/L BUN 23 H (7-17) mg/dL Glucose 101 H (74-99) mg/dL POC Glucose (mg/dL) 218 H 303 H (70-110) mg/dL Calcium 8.0 L (8.4-10.2) mg/dL Phosphorus 1.7 L (2.5-4.5) mg/dL 03/19/24 03/19/24 Range/Units 06:44 12:10 Sodium 134 L (137-145) mmol/L Potassium 3.3 L (3.5-5.1) mmol/L Carbon Dioxide 31 H (22-30) mmol/L BUN (7-17) mg/dL Glucose 264 H (74-99) mg/dL POC Glucose (mg/dL) 212 H (70-110) mg/dL Calcium 7.4 L (8.4-10.2) mg/dL Phosphorus (2.5-4.5) mg/dL Microbiology - Last 24 Hours (Table) 03/13/24 21:20 Blood Culture - Final Blood Assessment and Plan Assessment: continue ng tube until bowel function Time with Patient: Less than 30
[2024-03-19] MEDS: FAMOTIDINE 20 MG/2 ML VIAL IV SCH (16:13)
[2024-03-19] MEDS: HEPARIN SODIUM,PORCINE 5,000 UNIT/ML 1 ML VIAL SQ SCH (16:13)
[2024-03-19 17:06] LABS: Glucose,Whole Blood 169 mg/dL (70-110)
[2024-03-19 21:18] LABS: Glucose,Whole Blood 137 mg/dL (70-110)
[2024-03-20] MEDS: MVI, ADULT NO.4 WITH VIT K 10 ML, TRACE (CONC-1ML/DOSE) 1 ML in AMINO ACID 5%-D15W+LYTE... IV SCH (02:35)
[2024-03-20] MEDS: ACETAMINOPHEN IVPB SCH (02:36)
[2024-03-20 04:07] LABS: ALT 10 U/L (4-34); AST 23 U/L (14-36); African American GFR (CKD) >90 (>60 ml/min/1.73 sqM); Albumin 2.2 g/dL (3.5-5.0); Albumin/Globulin Ratio 1.2; Alkaline Phosphatase 34 U/L (38-126); Anion Gap 0 mmol/L; Blood Urea Nitrogen 18 mg/dL (7-17); Calcium 7.6 mg/dL (8.4-10.2); Carbon Dioxide 28 mmol/L (22-30); Chloride 102 mmol/L (98-107); Globulin 1.8 g/dL; Glucose 153 mg/dL (74-99); Magnesium 1.9 mg/dL (1.6-2.3); Non-African American GFR(CKD) >90 (>60 ml/min/1.73 sqM); Phosphorus 1.7 mg/dL (2.5-4.5); Potassium 3.5 mmol/L (3.5-5.1); Sodium 130 mmol/L (137-145); Total Bilirubin 0.6 mg/dL (0.2-1.3)
[2024-03-20 05:36] LABS: Glucose,Whole Blood 148 mg/dL (70-110)
[2024-03-20 09:52] LABS: HCT 35.4 % (37.2-46.3); HGB 11.9 g/dL (12.0-15.0); MCH 31.1 pg (27.0-32.0); MCHC 33.6 g/dL (32.0-37.0); MCV 92.4 FL (80.0-97.0); Mean Platelet Volume 10.5 FL (9.5-12.2); NRBC Per 100 WBC 0 X 10*3/uL (0.00-0.01); Platelet Count 185 X 10*3/uL (140-440); RBC 3.83 X 10*6/uL (4.10-5.20); RDW 12.1 % (11.5-14.5)
[2024-03-20] MEDS ORDERED: Phosphorus Replacement Protoco 1 EACH MISC MISCELLANE PRN (11:34)
[2024-03-20 11:42] LABS: Glucose,Whole Blood 132 mg/dL (70-110)
[2024-03-20] MEDS ORDERED: SODIUM PHOSPHATE 15 MMOL in DEXTROSE 5% IN WATER 250 ML IVPB ONE (12:30)
[2024-03-20] MEDS: MAGNESIUM SULFATE-D5W PMX 1 GM in DEXTROSE/WATER 1 100ML.BAG IVPB ONE (13:48)
--- NOTE | 2024-03-20 15:04 | P.PN ---
Subjective Patient seen and evaluated at bedside. Patient doing well, admits to flatus, admits to minimal abdominal pain Objective - Vital Signs Vital signs: Vital Signs Temp 97.8 F 03/20/24 13:16 Pulse 82 03/20/24 13:16 Resp 17 03/20/24 13:16 BP 146/83 03/20/24 13:16 Pulse Ox 92 L 03/20/24 13:16 FiO2 Intake & Output 03/19/24 03/20/24 03/20/24 18:59 06:59 18:59 Output Total 950 1020 150 Balance -950 -1020 -150 Weight 40.823 kg Output: Gastric Drainage 400 320 150 Urine 550 700 Other: Voiding Method Indwelling Catheter Indwelling Catheter - Exam gen: nad cv:rrr pul: non labored breathing abd: soft, min distention, surgical incisions c/d/i - Labs CBC & Chem 7: 03/20/24 02:51 03/20/24 02:51 Labs: Abnormal Lab Results - Last 24 Hours (Table) 03/19/24 03/19/24 03/20/24 Range/Units 17:05 21:17 02:51 WBC (4.50-10.00) X 10*3/uL RBC (4.10-5.20) X 10*6/uL Hgb (12.0-15.0) g/dL Hct (37.2-46.3) % Sodium 130 L (137-145) mmol/L BUN 18 H (7-17) mg/dL Glucose 153 H (74-99) mg/dL POC Glucose (mg/dL) 169 H 137 H (70-110) mg/dL Calcium 7.6 L (8.4-10.2) mg/dL Phosphorus 1.7 L (2.5-4.5) mg/dL Alkaline Phosphatase 34 L (38-126) U/L Total Protein 4.0 L (6.3-8.2) g/dL Albumin 2.2 L (3.5-5.0) g/dL 03/20/24 03/20/24 03/20/24 Range/Units 02:51 05:35 11:41 WBC 16.40 H (4.50-10.00) X 10*3/uL RBC 3.83 L (4.10-5.20) X 10*6/uL Hgb 11.9 L (12.0-15.0) g/dL Hct 35.4 L (37.2-46.3) % Sodium (137-145) mmol/L BUN (7-17) mg/dL Glucose (74-99) mg/dL POC Glucose (mg/dL) 148 H 132 H (70-110) mg/dL Calcium (8.4-10.2) mg/dL Phosphorus (2.5-4.5) mg/dL Alkaline Phosphatase (38-126) U/L Total Protein (6.3-8.2) g/dL Albumin (3.5-5.0) g/dL Microbiology - Last 24 Hours (Table) 03/13/24 21:20 Blood Culture - Final Blood Assessment and Plan Assessment: 73 yo female s/p exploratory laparotomy, lysis of adhesions -clamp ngt -possible start of clear liquids -continue pain meds -encourage ambulation Time with Patient: Less than 30
[2024-03-20] MEDS: POTASSIUM PHOSPHATE 15 MMOL in DEXTROSE 5% IN WATER 250 ML IV ONE (15:21)
--- NOTE | 2024-03-20 15:37 | P.PN ---
Subjective Progress Note Date: 03/20/24 73-year-old one of my active office patient with history of Parkinson disease, hypertension, hyperlipidemia, with history of mild anxiety attacks as well who presented to the emergency department On March 13, 2024 with complaint of intractable nausea and vomiting for 2 days with significant abdominal pain and discomfort has been constipated early symptom persistent but denies any bloody emesis slightly but worsening abdominal pain with food or drink she has not had any bowel movement has been passing minimal amount of gas only the blood no fever or chills with her discomfort. End up coming to the emergency department was seen and evaluated surprisingly her white blood cell was 24,800 hemoglobin 14.4 sodium was 126 potassium 5.3 with carbon dioxide 21 bun 60 creatinine 1. 7 with lactic acid of 2.6 total bilirubin 2.3. CAT scan of the abdomen showed small bowel obstruction with dilated air-fluid level extending through the entire bowel loop to nearly the ileocecal valve with sonographic transition into the terminal ileum. Patient was admitted to medical service seen general surgery who reviewed found decided best action plan initially to keep patient n.p.o. NG tube to low suction control nausea and initiate Unasyn at the time with follow-up lab in the morning. Patient seen and evaluated this morning surprisingly her white blood cell dropped on 7320 with hemoglobin still normal her kidney function has improved significantly yesterday creatinine down to 1.1 this morning 8.7. Liver function test lactic acid are all back to normal her urine test from early came back slightly with abnormal surprisingly urine culture came back positive for gram- negative bacilli but blood culture still negative. Patient remained in the meanwhile on Unasyn which seem to control his symptoms. She is still have an NG tube on low suction her abdominal pain slightly bit better still no bleeding of any type and not passing any gas so far. No bowel movement. 03/16/2024: She is feeling slightly better today continue to have NG tube with close 220 mL out, x-ray was ordered this morning continue to show persistent marked. Of dilated small bowel which are increased in size and diameter which again sign of small bowel obstruction. Patient still seeing surgery and possibility and potential at this point between today and tomorrow if she is not having much resolved from her current complaint might need to go for surgery.. Fortunately her lab including white blood cell hemoglobin hematocrit are normal potassium is slightly low which require potassium replacement therapy. Kidney function is much better. 03/17/2024: She had small bowel movements morning was ordered to go for small bowel x-ray follow-through with Gastrografin. Patient will be seen general surgery afterward to decide whether for best interest to require any intervention or not. Review the test the patient does not require to go for any surgery, she had few smaller bowel movement will consider to wait at this point before rushing for surgery. Pain still under control, laboratory value is not showing any anemia or elevated white blood cell creatinine at 0.7 GFR still high at 92. 03/18/2024: Patient had slight incident this morning falling in the bathroom she had slight hypoglycemia. Her IV was changed to D5 W she is having slight sugar with her IV her blood sugar hopefully will be collected from [place], patient never been diagnosed with diabetes before. Patient continued to have quite output out of the NG tube has not been resolved review her small bowel series yesterday shows obstruction. At this point I do not think avoiding surgery is an option anymore waiting for the surgical service to make that conclusion. I have talked with the patient about that option and was going on she is probably will be ready to go for surgery sometimes today. 03/19/2024: Patient is doing much better today she had her surgery for lysis of adhesion and bowel obstruction successfully yesterday as an exploratory, she is resting in bed this morning still have an NG tube still have her TPN, no increased pain no increased nausea or vomiting. Apparently general surgery milligram this morning and they are planning possibly to pull the NG tube out later today and start patient on clear liquid diet that is to be determined case patient still more symptomatic her NG tube still suctioning some of this point. 03/20/2024 Patient is evaluated today in follow up on the medical floor; patient is postoperative day #2 lysis of adhesions and exploratory lap. She has had some loose bowel movements. Plan for clamping of NG tube today and clear liquid diet. Urine culture is growing gram negative bacilli. She remains on IV unasyn. Blood work today reveals white blood cell count of 16.40, hgb 11.9, na -130, BUN 18, creatinine of 0.55, phos 1.7. Mag 1.9. She is on TPN. Abdominal pain is controlled. Review of Systems Constitutional: Denied any fatigue denied any fever. Cardio vascular: denied any chest pain, palpitations Gastrointestinal: denied any nausea, vomiting, diarrhea, mild abdominal pain. Pulmonary: Denied any shortness of breath cough Neurologic denied any new focal deficits All inpatient medications were reviewed and appropriate changes in these medica tions as dictated in the interval history and assessment and plan. PHYSICAL EXAMINATION: GENERAL: The patient is alert and oriented x3, not in any acute distress. Well developed, well nourished. HEENT: Pupils are round and equally reacting to light. EOMI. No scleral icterus. No conjunctival pallor. Normocephalic, atraumatic. No pharyngeal erythema. No thyromegaly. CARDIOVASCULAR: S1 and S2 present. No murmurs, rubs, or gallops. PULMONARY: Chest is clear to auscultation, no wheezing or crackles. ABDOMEN: Soft, nontender, nondistended, normoactive bowel sounds. No palpable organomegaly. NG tube in place. MUSCULOSKELETAL: No joint swelling or deformity. EXTREMITIES: No cyanosis, clubbing, or pedal edema. NEUROLOGICAL: Gross neurological examination did not reveal any focal deficits. SKIN: No rashes. ASSESSMENT AND PLAN: _Severe abdominal pain with partial bowel obstruction: Postsurgery with lysis of adhesion with exploratory has been doing much better so far. _Severe leukocytosis on presentation was secondary to bowel obstruction possible infection but better so far. _Small bowel obstruction: Postsurgery still have NG tube and still have TPN; she will be given clear liquid diet for a trial today and possible removal of NG tube later this evening or tomorrow. _Malnutrition: Patient to be continue on TPN she is significantly underweight be side her bowel obstruction will continue TPN probably till Friday. _Urinary tract infection with no sign of sepsis. Gram-negative bacilli was found remain on Unasyn currently we will continue current management. _Severe hyponatremia: Continue hydration had resolved so far and doing well. _Acute kidney injury secondary to acute tubular necrosis and probably prerenal acidemia: Continue hydration kidney function has improved significantly so far. _Parkinsonism: Remain on carbidopa levodopa continue vacation. _Severe hypoglycemia: Patient had hypoglycemia most likely from lack of nutrition her IV was changed to D5W and will continue probably Ringer lactate later on to correct her blood sugar Accu-Chek will be done she does need sliding scales she is not high she is just slightly bit low. _Hypertension: Continue amlodipine 2.5 mg a day along with propranolol 20 mg twice a day. _Gastritis and severe GERD has been on Carafate 1 g twice a day was earlier on pantoprazole. CODE STATUS: Full code. Discussion: Surgery planning to clamp the NG tube and offer patient a clear liquid diet. Plan is to put the NG tube back on to suction and if there is minimal output NG tube will be pulled. TPN will be continued until tomorrow and if patient is tolerating some diet can begin to wean to the TPN friday. Monitor electrolytes and renal function. Magnesium and phosphorus supplementation given today. Encourage incentive spirometer 10 x an hour while awake. The impression and plan of care has been dictated by Keysha Han Nurse Practitioner as directed. Dr. Twan MD I have performed a history and physical examination and medical decision making of this patient, discussed the same with the dictator, and agree with the dictators assessment and plan as written, documented as a scribe. Based on total visit time, I have performed more than 50% of this visit. Objective - Vital Signs Vital signs: Vital Signs Temp 97.9 F 03/20/24 07:08 Pulse 91 03/20/24 07:08 Resp 16 03/20/24 07:08 BP 148/78 03/20/24 07:08 Pulse Ox 93 L 03/20/24 07:08 FiO2 Intake & Output 03/19/24 03/20/24 03/20/24 18:59 06:59 18:59 Output Total 950 1020 Balance -950 -1020 Weight 40.823 kg Output: Gastric Drainage 400 320 Urine 550 700 Other: Voiding Method Indwelling Catheter Indwelling Catheter - Labs CBC & Chem 7: 03/20/24 02:51 03/20/24 02:51 Labs: Abnormal Lab Results - Last 24 Hours (Table) 03/19/24 03/19/24 03/19/24 Range/Units 12:10 17:05 21:17 WBC (4.50-10.00) X 10*3/uL RBC (4.10-5.20) X 10*6/uL Hgb (12.0-15.0) g/dL Hct (37.2-46.3) % Sodium (137-145) mmol/L BUN (7-17) mg/dL Glucose (74-99) mg/dL POC Glucose (mg/dL) 212 H 169 H 137 H (70-110) mg/dL Calcium (8.4-10.2) mg/dL Phosphorus (2.5-4.5) mg/dL Alkaline Phosphatase (38-126) U/L Total Protein (6.3-8.2) g/dL Albumin (3.5-5.0) g/dL 03/20/24 03/20/24 03/20/24 Range/Units 02:51 02:51 05:35 WBC 16.40 H (4.50-10.00) X 10*3/uL RBC 3.83 L (4.10-5.20) X 10*6/uL Hgb 11.9 L (12.0-15.0) g/dL Hct 35.4 L (37.2-46.3) % Sodium 130 L (137-145) mmol/L BUN 18 H (7-17) mg/dL Glucose 153 H (74-99) mg/dL POC Glucose (mg/dL) 148 H (70-110) mg/dL Calcium 7.6 L (8.4-10.2) mg/dL Phosphorus 1.7 L (2.5-4.5) mg/dL Alkaline Phosphatase 34 L (38-126) U/L Total Protein 4.0 L (6.3-8.2) g/dL Albumin 2.2 L (3.5-5.0) g/dL Microbiology - Last 24 Hours (Table) 03/13/24 21:20 Blood Culture - Final Blood Assessment and Plan Time with Patient: Less than 30
[2024-03-20 16:28] LABS: Glucose,Whole Blood 155 mg/dL (70-110)
[2024-03-20 21:23] LABS: Glucose,Whole Blood 130 mg/dL (70-110)
[2024-03-21] MEDS: MVI, ADULT NO.4 WITH VIT K 10 ML, TRACE (CONC-1ML/DOSE) 1 ML, SODIUM CHLORIDE 4MEQ/ML V... IV SCH (03:38)
[2024-03-21 04:18] LABS: ALT 16 U/L (4-34); AST 35 U/L (14-36); African American GFR (CKD) >90 (>60 ml/min/1.73 sqM); Albumin 2.3 g/dL (3.5-5.0); Albumin/Globulin Ratio 1.2; Alkaline Phosphatase 43 U/L (38-126); Anion Gap -1 mmol/L; Blood Urea Nitrogen 18 mg/dL (7-17); Calcium 7.5 mg/dL (8.4-10.2); Carbon Dioxide 29 mmol/L (22-30); Chloride 102 mmol/L (98-107); Globulin 1.9 g/dL; Glucose 91 mg/dL (74-99); Non-African American GFR(CKD) 89 (>60 ml/min/1.73 sqM); Phosphorus 2.4 mg/dL (2.5-4.5); Potassium 3.7 mmol/L (3.5-5.1); Sodium 130 mmol/L (137-145); Total Bilirubin 0.8 mg/dL (0.2-1.3); Total Protein 4.2 g/dL (6.3-8.2)
[2024-03-21 05:54] LABS: Glucose,Whole Blood 116 mg/dL (70-110)
[2024-03-21] MEDS: POTASSIUM CHLORIDE 20 MEQ in WATER FOR INJECTION 1 100ML.BAG IVPB ONE (09:29)
[2024-03-21] MEDS: POTASSIUM CHLORIDE 10 MEQ in WATER FOR INJECTION 1 100ML.BAG IVPB SCH (11:05)
[2024-03-21 11:23] LABS: Basophils # (A) 0.03 X 10*3/uL (0.00-0.10); Basophils % (A) 0.2 %; Eosinophils # (A) 0.07 X 10*3/uL (0.04-0.35); Eosinophils % (A) 0.4 %; HCT 37.2 % (37.2-46.3); HGB 12.2 g/dL (12.0-15.0); Lymphocytes # (A) 1.69 X 10*3/uL (0.90-5.00); Lymphocytes % (A) 10.6 %; MCH 31.3 pg (27.0-32.0); MCHC 32.8 g/dL (32.0-37.0); MCV 95.4 FL (80.0-97.0); Mean Platelet Volume 10.7 FL (9.5-12.2); Monocytes # (A) 0.77 X 10*3/uL (0.20-1.00); Monocytes % (A) 4.8 %; NRBC Per 100 WBC 0 X 10*3/uL (0.00-0.01); Neutrophils # (A) 12.65 X 10*3/uL (1.80-7.70); Platelet Count 212 X 10*3/uL (140-440); RDW 12.2 % (11.5-14.5); WBC 16.01 X 10*3/uL (4.50-10.00)
[2024-03-21 11:44] LABS: Glucose,Whole Blood 125 mg/dL (70-110)
[2024-03-21] MEDS: SODIUM PHOSPHATE 15 MMOL in DEXTROSE 5% IN WATER 250 ML IVPB ONE (12:27)
[2024-03-21 17:02] LABS: Glucose,Whole Blood 126 mg/dL (70-110)
[2024-03-21 21:17] LABS: Glucose,Whole Blood 121 mg/dL (70-110)
--- NOTE | 2024-03-21 21:43 | P.PN ---
Subjective Patient seen and evaluated at bedside. Doing well, passing faltus and have liquid bowel movements. Denies nausea or vomiting. Objective - Vital Signs Vital signs: Vital Signs Temp 98.6 F 03/21/24 19:54 Pulse 93 03/21/24 19:54 Resp 16 03/21/24 12:46 BP 119/75 03/21/24 19:54 Pulse Ox 93 L 03/21/24 19:54 FiO2 Intake & Output 03/21/24 03/21/24 03/22/24 06:59 18:59 06:59 Output Total 1025 1900 Balance -1025 -1900 Output: Gastric Drainage 400 Urine 1025 1500 Other: Voiding Method Indwelling Catheter - Exam gen: nad cv: rrr pul: non labored breathing abd: soft, non distended, no guarding or rebound tenderness, surgical incisions c/d/i - Labs CBC & Chem 7: 03/21/24 03:32 03/21/24 03:32 Labs: Abnormal Lab Results - Last 24 Hours (Table) 03/21/24 03/21/24 03/21/24 Range/Units 03:32 03:32 05:50 WBC 16.01 H (4.50-10.00) X 10*3/uL RBC 3.90 L (4.10-5.20) X 10*6/uL Immature Gran # 0.80 H (0.00-0.04) X 10*3/uL Neutrophils # 12.65 H (1.80-7.70) X 10*3/uL Sodium 130 L (137-145) mmol/L BUN 18 H (7-17) mg/dL POC Glucose (mg/dL) 116 H (70-110) mg/dL Calcium 7.5 L (8.4-10.2) mg/dL Phosphorus 2.4 L (2.5-4.5) mg/dL Total Protein 4.2 L (6.3-8.2) g/dL Albumin 2.3 L (3.5-5.0) g/dL 03/21/24 03/21/24 03/21/24 Range/Units 11:41 17:01 21:15 WBC (4.50-10.00) X 10*3/uL RBC (4.10-5.20) X 10*6/uL Immature Gran # (0.00-0.04) X 10*3/uL Neutrophils # (1.80-7.70) X 10*3/uL Sodium (137-145) mmol/L BUN (7-17) mg/dL POC Glucose (mg/dL) 125 H 126 H 121 H (70-110) mg/dL Calcium (8.4-10.2) mg/dL Phosphorus (2.5-4.5) mg/dL Total Protein (6.3-8.2) g/dL Albumin (3.5-5.0) g/dL Assessment and Plan Assessment: 73 yo female s/p exploratory laparotomy with lysis of adhesion -remove ngt today -continue clear liquid diet if patient continues to progress, regular diet tomorrow possible discharge friday evening/. Time with Patient: Less than 30
--- NOTE | 2024-03-21 22:30 | P.PN ---
Subjective Progress Note Date: 03/21/24 73-year-old one of my active office patient with history of Parkinson disease, hypertension, hyperlipidemia, with history of mild anxiety attacks as well who presented to the emergency department On March 13, 2024 with complaint of intractable nausea and vomiting for 2 days with significant abdominal pain and discomfort has been constipated early symptom persistent but denies any bloody emesis slightly but worsening abdominal pain with food or drink she has not had any bowel movement has been passing minimal amount of gas only the blood no fever or chills with her discomfort. End up coming to the emergency department was seen and evaluated surprisingly her white blood cell was 24,800 hemoglobin 14.4 sodium was 126 potassium 5.3 with carbon dioxide 21 bun 60 creatinine 1. 7 with lactic acid of 2.6 total bilirubin 2.3. CAT scan of the abdomen showed small bowel obstruction with dilated air-fluid level extending through the entire bowel loop to nearly the ileocecal valve with sonographic transition into the terminal ileum. Patient was admitted to medical service seen general surgery who reviewed found decided best action plan initially to keep patient n.p.o. NG tube to low suction control nausea and initiate Unasyn at the time with follow-up lab in the morning. Patient seen and evaluated this morning surprisingly her white blood cell dropped on 7320 with hemoglobin still normal her kidney function has improved significantly yesterday creatinine down to 1.1 this morning 8.7. Liver function test lactic acid are all back to normal her urine test from early came back slightly with abnormal surprisingly urine culture came back positive for gram- negative bacilli but blood culture still negative. Patient remained in the meanwhile on Unasyn which seem to control his symptoms. She is still have an NG tube on low suction her abdominal pain slightly bit better still no bleeding of any type and not passing any gas so far. No bowel movement. 03/16/2024: She is feeling slightly better today continue to have NG tube with close 220 mL out, x-ray was ordered this morning continue to show persistent marked. Of dilated small bowel which are increased in size and diameter which again sign of small bowel obstruction. Patient still seeing surgery and possibility and potential at this point between today and tomorrow if she is not having much resolved from her current complaint might need to go for surgery.. Fortunately her lab including white blood cell hemoglobin hematocrit are normal potassium is slightly low which require potassium replacement therapy. Kidney function is much better. 03/17/2024: She had small bowel movements morning was ordered to go for small bowel x-ray follow-through with Gastrografin. Patient will be seen general surgery afterward to decide whether for best interest to require any intervention or not. Review the test the patient does not require to go for any surgery, she had few smaller bowel movement will consider to wait at this point before rushing for surgery. Pain still under control, laboratory value is not showing any anemia or elevated white blood cell creatinine at 0.7 GFR still high at 92. 03/18/2024: Patient had slight incident this morning falling in the bathroom she had slight hypoglycemia. Her IV was changed to D5 W she is having slight sugar with her IV her blood sugar hopefully will be collected from [place], patient never been diagnosed with diabetes before. Patient continued to have quite output out of the NG tube has not been resolved review her small bowel series yesterday shows obstruction. At this point I do not think avoiding surgery is an option anymore waiting for the surgical service to make that conclusion. I have talked with the patient about that option and was going on she is probably will be ready to go for surgery sometimes today. 03/19/2024: Patient is doing much better today she had her surgery for lysis of adhesion and bowel obstruction successfully yesterday as an exploratory, she is resting in bed this morning still have an NG tube still have her TPN, no increased pain no increased nausea or vomiting. Apparently general surgery milligram this morning and they are planning possibly to pull the NG tube out later today and start patient on clear liquid diet that is to be determined case patient still more symptomatic her NG tube still suctioning some of this point. 03/20/2024 Patient is evaluated today in follow up on the medical floor; patient is postoperative day #2 lysis of adhesions and exploratory lap. She has had some loose bowel movements. Plan for clamping of NG tube today and clear liquid diet. Urine culture is growing gram negative bacilli. She remains on IV unasyn. Blood work today reveals white blood cell count of 16.40, hgb 11.9, na -130, BUN 18, creatinine of 0.55, phos 1.7. Mag 1.9. She is on TPN. Abdominal pain is controlled. 03/21/2024 Patient evaluated today sitting up in the chair. She tolerated clear liquid diet last night but when the NG tube was turned back on to suction she had 200 mls of gastric output and increased nausea and abdominal distention. Today she has worsening abdominal distention and decreased bowel sounds. NG tube remains in place. Patient is postoperative day #3 lysis of adhesions and exploratory laporotomy. White blood cell count 16.01, hgb 12.2, sodium 130, BUN 18, creatinine 0.67. Glucose 120s. Review of Systems Constitutional: Denied any fatigue denied any fever. Cardio vascular: denied any chest pain, palpitations Gastrointestinal: denied any nausea, vomiting, diarrhea, mild abdominal pain. Pulmonary: Denied any shortness of breath cough Neurologic denied any new focal deficits All inpatient medications were reviewed and appropriate changes in these medications as dictated in the interval history and assessment and plan. PHYSICAL EXAMINATION: GENERAL: The patient is alert and oriented x3, not in any acute distress. Well developed, well nourished. HEENT: Pupils are round and equally reacting to light. EOMI. No scleral icterus. No conjunctival pallor. Normocephalic, atraumatic. No pharyngeal erythema. No thyromegaly. CARDIOVASCULAR: S1 and S2 present. No murmurs, rubs, or gallops. PULMONARY: Chest is clear to auscultation, no wheezing or crackles. ABDOMEN: Soft, nontender, distended, normoactive bowel sounds. No palpable organomegaly. NG tube in place. MUSCULOSKELETAL: No joint swelling or deformity. EXTREMITIES: No cyanosis, clubbing, or pedal edema. NEUROLOGICAL: Gross neurological examination did not reveal any focal deficits. SKIN: No rashes. ASSESSMENT AND PLAN: _Severe abdominal pain with partial bowel obstruction: Postsurgery with lysis of adhesion with exploratory has been doing much better so far. _Severe leukocytosis on presentation was secondary to bowel obstruction possible infection but better so far. _Small bowel obstruction: Postsurgery still have NG tube and still have TPN; patient may have sips of clears per surgery. _Malnutrition: Patient to be continue on TPN she is significantly underweight beside her bowel obstruction will continue TPN probably till Friday. _Urinary tract infection with no sign of sepsis. Gram-negative bacilli was found remain on Unasyn currently we will continue current management. _Severe hyponatremia: Continue hydration had resolved so far and doing well. _Acute kidney injury secondary to acute tubular necrosis and probably prerenal acidemia: Continue hydration kidney function has improved significantly so far. _Parkinsonism: Remain on carbidopa levodopa continue vacation. _Severe hypoglycemia: Patient had hypoglycemia most likely from lack of nutrition her IV was changed to D5W and will continue probably Ringer lactate later on to correct her blood sugar Accu-Chek will be done she does need sliding scales she is not high she is just slightly bit low. _Hypertension: Continue amlodipine 2.5 mg a day along with propranolol 20 mg twice a day. _Gastritis and severe GERD has been on Carafate 1 g twice a day was earlier on pantoprazole. CODE STATUS: Full code. Discussion: Patient continues with sips of clear liquids. NG tube remains in place. Monitor electrolytes and renal function. phosphorus supplementation given today. Encourage incentive spirometer 10 x an hour while awake. The impression and plan of care has been dictated by Keysha Han, Nurse Practitioner as directed. Dr. Twan MD I have performed a history and physical examination and medical decision making of this patient, discussed the same with the dictator, and agree with the dictators assessment and plan as written, documented as a scribe. Based on total visit time, I have performed more than 50% of this visit. Objective - Vital Signs Vital signs: Vital Signs Temp 98.6 F 03/21/24 19:54 Pulse 93 03/21/24 19:54 Resp 16 03/21/24 12:46 BP 119/75 03/21/24 19:54 Pulse Ox 93 L 03/21/24 19:54 FiO2 Intake & Output 03/21/24 03/21/24 03/22/24 06:59 18:59 06:59 Output Total 1025 1900 Balance -1025 -1900 Output: Gastric Drainage 400 Urine 1025 1500 Other: Voiding Method Indwelling Catheter - Labs CBC & Chem 7: 03/21/24 03:32 03/21/24 03:32 Labs: Abnormal Lab Results - Last 24 Hours (Table) 03/21/24 03/21/24 03/21/24 Range/Units 03:32 03:32 05:50 WBC 16.01 H (4.50-10.00) X 10*3/uL RBC 3.90 L (4.10-5.20) X 10*6/uL Immature Gran # 0.80 H (0.00-0.04) X 10*3/uL Neutrophils # 12.65 H (1.80-7.70) X 10*3/uL Sodium 130 L (137-145) mmol/L BUN 18 H (7-17) mg/dL POC Glucose (mg/dL) 116 H (70-110) mg/dL Calcium 7.5 L (8.4-10.2) mg/dL Phosphorus 2.4 L (2.5-4.5) mg/dL Total Protein 4.2 L (6.3-8.2) g/dL Albumin 2.3 L (3.5-5.0) g/dL 03/21/24 03/21/24 03/21/24 Range/Units 11:41 17:01 21:15 WBC (4.50-10.00) X 10*3/uL RBC (4.10-5.20) X 10*6/uL Immature Gran # (0.00-0.04) X 10*3/uL Neutrophils # (1.80-7.70) X 10*3/uL Sodium (137-145) mmol/L BUN (7-17) mg/dL POC Glucose (mg/dL) 125 H 126 H 121 H (70-110) mg/dL Calcium (8.4-10.2) mg/dL Phosphorus (2.5-4.5) mg/dL Total Protein (6.3-8.2) g/dL Albumin (3.5-5.0) g/dL
[2024-03-22 04:37] LABS: ALT 30 U/L (4-34); African American GFR (CKD) >90 (>60 ml/min/1.73 sqM); Albumin 2.1 g/dL (3.5-5.0); Albumin/Globulin Ratio 1.1; Anion Gap 0 mmol/L; Blood Urea Nitrogen 18 mg/dL (7-17); Calcium 7.7 mg/dL (8.4-10.2); Carbon Dioxide 26 mmol/L (22-30); Chloride 105 mmol/L (98-107); Globulin 1.9 g/dL; Glucose 110 mg/dL (74-99); Non-African American GFR(CKD) >90 (>60 ml/min/1.73 sqM); Sodium 131 mmol/L (137-145); Total Bilirubin 0.8 mg/dL (0.2-1.3)
[2024-03-22 05:05] LABS: AST 108 U/L (14-36); Alkaline Phosphatase 68 U/L (38-126); Magnesium 1.8 mg/dL (1.6-2.3); Phosphorus 3.3 mg/dL (2.5-4.5); Potassium 4.1 mmol/L (3.5-5.1)
[2024-03-22 06:09] LABS: Glucose,Whole Blood 115 mg/dL (70-110)
--- NOTE | 2024-03-22 07:42 | P.PN ---
Subjective Progress Note Date: 03/22/24 HISTORY OF PRESENT ILLNESS: 73-year-old one of my active office patient with history of Parkinson disease, hypertension, hyperlipidemia, with history of mild anxiety attacks as well who presented to the emergency department On March 13, 2024 with complaint of intractable nausea and vomiting for 2 days with significant abdominal pain and discomfort has been constipated early symptom persistent but denies any bloody emesis slightly but worsening abdominal pain with food or drink she has not had any bowel movement has been passing minimal amount of gas only the blood no fever or chills with her discomfort. End up coming to the emergency department was seen and evaluated surprisingly her white blood cell was 24,800 hemoglobin 14.4 sodium was 126 potassium 5.3 with carbon dioxide 21 bun 60 creatinine 1. 7 with lactic acid of 2.6 total bilirubin 2.3. CAT scan of the abdomen showed small bowel obstruction with dilated air-fluid level extending through the entire bowel loop to nearly the ileocecal valve with sonographic transition into the terminal ileum. Patient was admitted to medical service seen general surgery who reviewed found decided best action plan initially to keep patient n.p.o. NG tube to low suction control nausea and initiate Unasyn at the time with follow-up lab in the morning. Patient seen and evaluated this morning surprisingly her white blood cell dropped on 7320 with hemoglobin still normal her kidney function has improved significantly yesterday creatinine down to 1.1 this morning 8.7. Liver function test lactic acid are all back to normal her urine test from early came back slightly with abnormal surprisingly urine culture came back positive for gram- negative bacilli but blood culture still negative. Patient remained in the meanwhile on Unasyn which seem to control his symptoms. She is still have an NG tube on low suction her abdominal pain slightly bit better still no bleeding of any type and not passing any gas so far. No bowel movement. 03/16/2024: She is feeling slightly better today continue to have NG tube with close 220 mL out, x-ray was ordered this morning continue to show persistent marked. Of dilated small bowel which are increased in size and diameter which again sign of small bowel obstruction. Patient still seeing surgery and possibility and potential at this point between today and tomorrow if she is not having much resolved from her current complaint might need to go for surgery.. Fortunately her lab including white blood cell hemoglobin hematocrit are normal potassium is slightly low which require potassium replacement therapy. Kidney function is much better. 03/17/2024: She had small bowel movements morning was ordered to go for small bowel x-ray follow-through with Gastrografin. Patient will be seen general surgery afterward to decide whether for best interest to require any intervention or not. Review the test the patient does not require to go for any surgery, she had few smaller bowel movement will consider to wait at this point before rushing for surgery. Pain still under control, laboratory value is not showing any anemia or elevated white blood cell creatinine at 0.7 GFR still high at 92. 03/18/2024: Patient had slight incident this morning falling in the bathroom she had slight hypoglycemia. Her IV was changed to D5 W she is having slight sugar with her IV her blood sugar hopefully will be collected from [place], patient never been diagnosed with diabetes before. Patient continued to have quite output out of the NG tube has not been resolved review her small bowel series yesterday shows obstruction. At this point I do not think avoiding surgery is an option anymore waiting for the surgical service to make that conclusion. I have talked with the patient about that option and was going on she is probably will be ready to go for surgery sometimes today. 03/19/2024: Patient is doing much better today she had her surgery for lysis of adhesion and bowel obstruction successfully yesterday as an exploratory, she is resting in bed this morning still have an NG tube still have her TPN, no increased pain no increased nausea or vomiting. Apparently general surgery milligram this morning and they are planning possibly to pull the NG tube out later today and start patient on clear liquid diet that is to be determined case patient still more symptomatic her NG tube still suctioning some of this point. 03/22/2024: Patient was passing gas yesterday no nausea vomiting did not have any bowel movement yet NG tube was removed yesterday patient to continue on clear liquid diet, advance diet gradually for possible discharge sometime today or tomorrow. No symptoms at this point with any nausea vomiting or any worsening abdominal pain. Laboratory value from earlier this morning shows normal electrolytes kidney function normal blood sugar. Will titrate physical therapy today out of bed increase mobility, change diet to soft diet today. TPN and plan hopefully for discharge home tomorrow. REVIEW OF SYSTEMS: CONSTITUTIONAL: Well-developed no acute respiratory distress. EYES: No icterus sclerae, no conjunctivitis. EARS, NOSE, MOUTH, THROAT, and FACE: No sore throat, lymphadenopathy, carotid bruits or deformity. RESPIRATORY: No SOB cough or wheezes. CARDIOVASCULAR: No CP, Palpitation, PND, Orthopnea, or angina. GASTROINTESTINAL: Significant abdominal pain with nausea vomiting no diarrhea no bowel movement so far with partial bowel obstruction. GENITOURINARY: Negative for Hematuria or UTI, no kidney stones. INTEGUMENT/BREAST: Negative for any muscular injury with mild osteoarthritis.. HEMATOLOGIC/LYMPHATIC: Negative for bleed or purpura. MUSCULOSKELTAL: Negative for Myalgia or arthralgia. NEURLOGICAL: Diagnosed with parkinsonism along with tremor abnormal balance and gait. BEHAVIORAL/PSYCH: Negative. ENDOCRINE: Negative. PHYSICAL EXAMINATION: General Appearance: Alert, cooperative, no distress, appears stated age. Neck HEENT: Supple, no lymphadenopathy, no thyroid enlargement, no carotid bruits. Lungs: Clear to auscultation without crackles or wheezes no rhonchi, no deformity. Chest Wall: Decreased expansion with deep inspiration no tenderness and no deformity was found on exam, no costochondral pain or discomfort. Heart: Regular rate and rhythm, S1, S2 normal, no murmur, rub or gallop. Back: Symmetric, no curvature, ROM normal, no CVA tenderness. Abdomen: Soft slightly distended with slight discomfort epigastric and mid abdo arlene region area no rebound or rigidity not able to feel any mass distention is down still have slightly better hyper bowel sound. Extremities: Extremities normal, atraumatic, no cyanosis or edema. Pulses: 2+ and symmetric. Skin: Skin color, texture, tugor normal, no rashes or lesions. Neurologic: Alert oriented x3 cranial nerves II through XII intact, no motor deficit, no abnormal balance or gait. ASSESSMENT AND PLAN: _Severe abdominal pain with partial bowel obstruction: Postsurgery with lysis of adhesion with exploratory has been doing much better so far, NG tube was removed and patient started on diet ready.. _Severe leukocytosis on presentation was secondary to bowel obstruction possible infection but better so far. _Small bowel obstruction: Postsurgery for lysis of adhesion NG tube is out patient was doing TPN early to supplement her diet which can be stopped by today. _Malnutrition: Patient to be continue on TPN she is significantly underweight be side her bowel obstruction will continue TPN probably till Friday. _Urinary tract infection with no sign of sepsis. Gram-negative bacilli was found remain on Unasyn currently we will continue current management. Antibiotic probably be stopped today. _Severe hyponatremia: Secondary to SIADH and severe dehydration much better so far and sodium is back to normal. _Acute kidney injury secondary to acute tubular necrosis and probably prerenal acidemia: Continue hydration kidney function has improved significantly so far. _Parkinsonism: Remain on carbidopa levodopa continue vacation. _Severe hypoglycemia: She had mild hyperglycemia been on TPN last few days with nutrition and diet hopefully her sugar be stabilized. _Hypertension: Continue amlodipine 2.5 mg a day along with propranolol 20 mg twice a day. _Gastritis and severe GERD has been on Carafate 1 g twice a day was earlier on pantoprazole. CODE STATUS: Full code. Discussion: She is doing very well, continue to titrate diet up to soft diet today off TPN and increase protein intake with doing Ensure or Ensure Plus hopefully will plan with increased mobility patient wants to go home which should be able to make it by tomorrow. Objective - Vital Signs Vital signs: Vital Signs Temp 98.4 F 03/22/24 01:58 Pulse 78 03/22/24 01:58 Resp 18 03/21/24 20:00 BP 109/68 03/22/24 01:58 Pulse Ox 94 L 03/22/24 01:58 FiO2 Intake & Output 03/21/24 03/21/24 03/22/24 06:59 18:59 06:59 Intake Total 980.2 Output Total 1025 1900 Balance -1025 -1900 980.2 Intake: Intake, IV Titration 980.2 Amount Mvi, Adult No.4 with Vit 980.2 K 10 ml Trace (Conc-1Ml/ Dose) 1 ml Sodium Chloride 4Meq/ml Vial 20 meq Potassium Phosphate 6 mmol In Amino Acid 5%- D15w+Lytes*E* 1,000 ml @ 39 mls/hr IV .Q24H [facility] Rx #:[id number] Output: Gastric Drainage 400 Urine 1025 1500 Other: Voiding Method Indwelling Catheter Bedside Commode # Voids 1 # Bowel Movements 1 - Labs CBC & Chem 7: 03/21/24 03:32 03/22/24 03:35 Labs: Abnormal Lab Results - Last 24 Hours (Table) 03/21/24 03/21/2403/21/24 Range/Units 03:32 05:50 11:41 WBC 16.01 H (4.50-10.00) X 10*3/uL RBC 3.90 L (4.10-5.20) X 10*6/uL Immature Gran # 0.80 H (0.00-0.04) X 10*3/uL Neutrophils # 12.65 H (1.80-7.70) X 10*3/uL Sodium (137-145) mmol/L BUN (7-17) mg/dL Glucose (74-99) mg/dL POC Glucose (mg/dL) 116 H 125 H (70-110) mg/dL Calcium (8.4-10.2) mg/dL AST (14-36) U/L Total Protein (6.3-8.2) g/dL Albumin (3.5-5.0) g/dL 03/21/24 03/21/24 03/22/24 Range/Units 17:01 21:15 03:35 WBC (4.50-10.00) X 10*3/uL RBC (4.10-5.20) X 10*6/uL Immature Gran # (0.00-0.04) X 10*3/uL Neutrophils # (1.80-7.70) X 10*3/uL Sodium 131 L (137-145) mmol/L BUN 18 H (7-17) mg/dL Glucose 110 H (74-99) mg/dL POC Glucose (mg/dL) 126 H 121 H (70-110) mg/dL Calcium 7.7 L (8.4-10.2) mg/dL AST 108 H (14-36) U/L Total Protein 4.0 L (6.3-8.2) g/dL Albumin 2.1 L (3.5-5.0) g/dL
[2024-03-22 11:42] LABS: Glucose,Whole Blood 87 mg/dL (70-110)
--- NOTE | 2024-03-22 14:26 | P.PN ---
Subjective Progress Note Date: 03/22/24 CHIEF COMPLAINT: SBO HISTORY OF PRESENT ILLNESS: Patient is POD#4 status post exploratory laparotomy with lysis of adhesions. Patient reports her pain is controlled. She is tolerating clear liquid diet. She did have a bowel movement and flatus. Afebrile. PHYSICAL EXAM: VITAL SIGNS: Reviewed. GENERAL: Well-developed in no acute distress. ABDOMEN: Soft. Mildly distended. Incisional dressing clean dry and intact. NEUROLOGIC: Alert and oriented. Cranial nerves II through XII grossly intact. ASSESSMENT: 1. Small bowel obstruction status post exploratory laparotomy with lysis of adhesions 2. History of abdominal surgeries 3. Moderate protein calorie malnutrition 4. Hypokalemia resolved PLAN: -Diet advanced to regular -Encourage patient to ambulate -Possible discharge home tomorrow -Continue antibiotics -Repeat CBC in a.m. 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 Signing provider agrees with the documented findings, assessment, and plan of care. Objective - Vital Signs Vital signs: Vital Signs Temp 97.9 F 03/22/24 07:07 Pulse 80 03/22/24 09:35 Resp 16 03/22/24 09:35 BP 150/76 03/22/24 07:07 Pulse Ox 97 03/22/24 07:07 FiO2 Intake & Output 03/21/24 03/22/24 03/22/24 18:59 06:59 18:59 Intake Total 980.2 Output Total 1900 Balance -1900 980.2 Weight 40.823 kg Intake: Intake, IV Titration 980.2 Amount Mvi, Adult No.4 with Vit 980.2 K 10 ml Trace (Conc-1Ml/ Dose) 1 ml Sodium Chloride 4Meq/ml Vial 20 meq Potassium Phosphate 6 mmol In Amino Acid 5%- D15w+Lytes*E* 1,000 ml @ 39 mls/hr IV .Q24H [facility] Rx #:[id number] Output: Gastric Drainage 400 Urine 1500 Other: Voiding Method Bedside Commode Bedside Commode # Voids 1 # Bowel Movements 1 - Labs CBC & Chem 7: 03/21/24 03:32 03/22/24 03:35 Labs: Abnormal Lab Results - Last 24 Hours (Table) 03/21/24 03/21/24 03/22/24 Range/Units 17:01 21:15 03:35 Sodium 131 L (137-145) mmol/L BUN 18 H (7-17) mg/dL Glucose 110 H (74-99) mg/dL POC Glucose (mg/dL) 126 H 121 H (70-110) mg/dL Calcium 7.7 L (8.4-10.2) mg/dL AST 108 H (14-36) U/L Total Protein 4.0 L (6.3-8.2) g/dL Albumin 2.1 L (3.5-5.0) g/dL 03/22/24 Range/Units 06:05 Sodium (137-145) mmol/L BUN (7-17) mg/dL Glucose (74-99) mg/dL POC Glucose (mg/dL) 115 H (70-110) mg/dL Calcium (8.4-10.2) mg/dL AST (14-36) U/L Total Protein (6.3-8.2) g/dL Albumin (3.5-5.0) g/dL
[2024-03-22 16:45] LABS: Glucose,Whole Blood 82 mg/dL (70-110)
[2024-03-22 20:45] LABS: Glucose,Whole Blood 90 mg/dL (70-110)
[2024-03-23] MEDS ORDERED: MVI, ADULT NO.4 WITH VIT K 10 ML, TRACE (CONC-1ML/DOSE) 1 ML, SODIUM CHLORIDE 4MEQ/ML V... IV SCH (04:00)
[2024-03-23 04:40] LABS: African American GFR (CKD) >90 (>60 ml/min/1.73 sqM); Anion Gap -1 mmol/L; Blood Urea Nitrogen 14 mg/dL (7-17); Calcium 7.7 mg/dL (8.4-10.2); Carbon Dioxide 26 mmol/L (22-30); Chloride 108 mmol/L (98-107); Glucose 77 mg/dL (74-99); Magnesium 1.6 mg/dL (1.6-2.3); Non-African American GFR(CKD) 85 (>60 ml/min/1.73 sqM); Sodium 133 mmol/L (137-145)
[2024-03-23 04:58] LABS: Glucose,Whole Blood 79 mg/dL (70-110)
--- NOTE | 2024-03-23 05:54 | P.PN ---
Subjective Progress Note Date: 03/23/24 HISTORY OF PRESENT ILLNESS: 73-year-old one of my active office patient with history of Parkinson disease, hypertension, hyperlipidemia, with history of mild anxiety attacks as well who presented to the emergency department On March 13, 2024 with complaint of intractable nausea and vomiting for 2 days with significant abdominal pain and discomfort has been constipated early symptom persistent but denies any bloody emesis slightly but worsening abdominal pain with food or drink she has not had any bowel movement has been passing minimal amount of gas only the blood no fever or chills with her discomfort. End up coming to the emergency department was seen and evaluated surprisingly her white blood cell was 24,800 hemoglobin 14.4 sodium was 126 potassium 5.3 with carbon dioxide 21 bun 60 creatinine 1. 7 with lactic acid of 2.6 total bilirubin 2.3. CAT scan of the abdomen showed small bowel obstruction with dilated air-fluid level extending through the entire bowel loop to nearly the ileocecal valve with sonographic transition into the terminal ileum. Patient was admitted to medical service seen general surgery who reviewed found decided best action plan initially to keep patient n.p.o. NG tube to low suction control nausea and initiate Unasyn at the time with follow-up lab in the morning. Patient seen and evaluated this morning surprisingly her white blood cell dropped on 7320 with hemoglobin still normal her kidney function has improved significantly yesterday creatinine down to 1.1 this morning 8.7. Liver function test lactic acid are all back to normal her urine test from early came back slightly with abnormal surprisingly urine culture came back positive for gram- negative bacilli but blood culture still negative. Patient remained in the meanwhile on Unasyn which seem to control his symptoms. She is still have an NG tube on low suction her abdominal pain slightly bit better still no bleeding of any type and not passing any gas so far. No bowel movement. 03/16/2024: She is feeling slightly better today continue to have NG tube with close 220 mL out, x-ray was ordered this morning continue to show persistent marked. Of dilated small bowel which are increased in size and diameter which again sign of small bowel obstruction. Patient still seeing surgery and possibility and potential at this point between today and tomorrow if she is not having much resolved from her current complaint might need to go for surgery.. Fortunately her lab including white blood cell hemoglobin hematocrit are normal potassium is slightly low which require potassium replacement therapy. Kidney function is much better. 03/17/2024: She had small bowel movements morning was ordered to go for small bowel x-ray follow-through with Gastrografin. Patient will be seen general surgery afterward to decide whether for best interest to require any intervention or not. Review the test the patient does not require to go for any surgery, she had few smaller bowel movement will consider to wait at this point before rushing for surgery. Pain still under control, laboratory value is not showing any anemia or elevated white blood cell creatinine at 0.7 GFR still high at 92. 03/18/2024: Patient had slight incident this morning falling in the bathroom she had slight hypoglycemia. Her IV was changed to D5 W she is having slight sugar with her IV her blood sugar hopefully will be collected from [place], patient never been diagnosed with diabetes before. Patient continued to have quite output out of the NG tube has not been resolved review her small bowel series yesterday shows obstruction. At this point I do not think avoiding surgery is an option anymore waiting for the surgical service to make that conclusion. I have talked with the patient about that option and was going on she is probably will be ready to go for surgery sometimes today. 03/19/2024: Patient is doing much better today she had her surgery for lysis of adhesion and bowel obstruction successfully yesterday as an exploratory, she is resting in bed this morning still have an NG tube still have her TPN, no increased pain no increased nausea or vomiting. Apparently general surgery milligram this morning and they are planning possibly to pull the NG tube out later today and start patient on clear liquid diet that is to be determined case patient still more symptomatic her NG tube still suctioning some of this point. 03/22/2024: Patient was passing gas yesterday no nausea vomiting did not have any bowel movement yet NG tube was removed yesterday patient to continue on clear liquid diet, advance diet gradually for possible discharge sometime today or tomorrow. No symptoms at this point with any nausea vomiting or any worsening abdominal pain. Laboratory value from earlier this morning shows normal electrolytes kidney function normal blood sugar. Will titrate physical therapy today out of bed increase mobility, change diet to soft diet today. TPN and plan hopefully for discharge home tomorrow. March 23, 2024: She is doing very well having bowel movement her appetite is much better increase diet as tolerated back to regular diet, her TPN is off, patient is ambulating without help and has been doing well hopefully prepare for the discharge home today, her electrolyte yesterday shows potassium is back to normal calcium levels still slightly below mostly adjusted for her albumin level. Blood sugar has been much better we can quit doing Accu-Chek there is no further TPN. If from surgical standpoint patient stable and doing well we should be able to discharge home today. REVIEW OF SYSTEMS: CONSTITUTIONAL: Well-developed no acute respiratory distress. EYES: No icterus sclerae, no conjunctivitis. EARS, NOSE, MOUTH, THROAT, and FACE: No sore throat, lymphadenopathy, carotid bruits or deformity. RESPIRATORY: No SOB cough or wheezes. CARDIOVASCULAR: No CP, Palpitation, PND, Orthopnea, or angina. GASTROINTESTINAL: Significant abdominal pain with nausea vomiting no diarrhea no bowel movement so far with partial bowel obstruction. GENITOURINARY: Negative for Hematuria or UTI, no kidney stones. INTEGUMENT/BREAST: Negative for any muscular injury with mild osteoarthritis.. HEMATOLOGIC/LYMPHATIC: Negative for bleed or purpura. MUSCULOSKELTAL: Negative for Myalgia or arthralgia. NEURLOGICAL: Diagnosed with parkinsonism along with tremor abnormal balance and gait. BEHAVIORAL/PSYCH: Negative. ENDOCRINE: Negative. PHYSICAL EXAMINATION: General Appearance: Alert, cooperative, no distress, appears stated age. Neck HEENT: Supple, no lymphadenopathy, no thyroid enlargement, no carotid bruits. Lungs: Clear to auscultation without crackles or wheezes no rhonchi, no deformity. Chest Wall: Decreased expansion with deep inspiration no tenderness and no deformity was found on exam, no costochondral pain or discomfort. Heart: Regular rate and rhythm, S1, S2 normal, no murmur, rub or gallop. Back: Symmetric, no curvature, ROM normal, no CVA tenderness. Abdomen: Soft slightly distended with slight discomfort epigastric and mid abdominal region area no rebound or rigidity not able to feel any mass distention is down still have slightly better hyper bowel sound. Extremities: Extremities normal, atraumatic, no cyanosis or edema. Pulses: 2+ and symmetric. Skin: Skin color, texture, tugor normal, no rashes or lesions. Neurologic: Alert oriented x3 cranial nerves II through XII intact, no motor deficit, no abnormal balance or gait. ASSESSMENT AND PLAN: _Severe abdominal pain with partial bowel obstruction: Postsurgery with lysis of adhesion with exploratory has been doing much better so far, NG tube was removed and patient started on diet ready.. _Severe leukocytosis on presentation was secondary to bowel obstruction possible infection but better so far. _Small bowel obstruction: Postsurgery for lysis of adhesion NG tube is out patient was doing TPN early to supplement her diet which can be stopped by to day. _Malnutrition: Patient to be continue on TPN she is significantly underweight beside her bowel obstruction will continue TPN probably till Friday. _Urinary tract infection with no sign of sepsis. Gram-negative bacilli was found remain on Unasyn currently we will continue current management. Antibiotic probably be stopped today. _Severe hyponatremia: Secondary to SIADH and severe dehydration much better so far and sodium is back to normal. _Acute kidney injury secondary to acute tubular necrosis and probably prerenal acidemia: Continue hydration kidney function has improved significantly so far. _Parkinsonism: Remain on carbidopa levodopa continue vacation. _Severe hypoglycemia: She had mild hyperglycemia been on TPN last few days with nutrition and diet hopefully her sugar be stabilized. _Hypertension: Continue amlodipine 2.5 mg a day along with propranolol 20 mg twice a day. _Gastritis and severe GERD has been on Carafate 1 g twice a day was earlier on pantoprazole. CODE STATUS: Full code. Discussion: Patient is doing very well titrate diet to regular diet able to t olerated well with no problem, she is off TPN at this point electrolyte is holding well. The patient should be able to be discharged home today. Objective - Vital Signs Vital signs: Vital Signs Temp 98.3 F 03/23/24 02:00 Pulse 93 03/23/24 02:00 Resp 18 03/22/24 20:11 BP 129/68 03/23/24 02:00 Pulse Ox 95 03/23/24 02:00 FiO2 Intake & Output 03/22/24 03/22/24 03/23/24 06:59 18:59 06:59 Intake Total 980.2 Balance 980.2 Weight 40.823 kg Intake: Intake, IV Titration 980.2 Amount Mvi, Adult No.4 with Vit 980.2 K 10 ml Trace (Conc-1Ml/ Dose) 1 ml Sodium Chloride 4Meq/ml Vial 20 meq Potassium Phosphate 6 mmol In Amino Acid 5%- D15w+Lytes*E* 1,000 ml @ 39 mls/hr IV .Q24H [facility] Rx #:[id number] Other: Voiding Method Bedside Commode Bedside Commode Toilet # Voids 1 3 # Bowel Movements 1 3 - Labs CBC & Chem 7: 03/21/24 03:32 03/23/24 04:07 Labs: Abnormal Lab Results - Last 24 Hours (Table) 03/22/24 03/23/24 Range/Units 06:05 04:07 Sodium 133 L (137-145) mmol/L Chloride 108 H (98-107) mmol/L POC Glucose (mg/dL) 115 H (70-110) mg/dL Calcium 7.7 L (8.4-10.2) mg/dL
[2024-03-23 08:27] VITALS: BP 129/74; PULSE 90; RESP 17; TEMP 98
[2024-03-23 08:33] LABS: Basophils # (A) 0.04 X 10*3/uL (0.00-0.10); Basophils % (A) 0.5 %; Eosinophils # (A) 0.07 X 10*3/uL (0.04-0.35); Eosinophils % (A) 0.8 %; HCT 30.4 % (37.2-46.3); HGB 9.9 g/dL (12.0-15.0); Lymphocytes # (A) 1.18 X 10*3/uL (0.90-5.00); Lymphocytes % (A) 13.7 %; MCH 31.1 pg (27.0-32.0); MCHC 32.6 g/dL (32.0-37.0); MCV 95.6 FL (80.0-97.0); Mean Platelet Volume 10.7 FL (9.5-12.2); Monocytes # (A) 0.45 X 10*3/uL (0.20-1.00); Monocytes % (A) 5.2 %; NRBC Per 100 WBC 0 X 10*3/uL (0.00-0.01); Neutrophils # (A) 6.51 X 10*3/uL (1.80-7.70); Neutrophils % (A) 75.8 %; Platelet Count 177 X 10*3/uL (140-440); RBC 3.18 X 10*6/uL (4.10-5.20); RDW 12.4 % (11.5-14.5); WBC 8.59 X 10*3/uL (4.50-10.00)
[2024-03-23 11:08] LABS: Glucose,Whole Blood 81 mg/dL (70-110)
--- NOTE | 2024-03-23 13:57 | P.PN ---
Subjective Progress Note Date: 03/23/24 CHIEF COMPLAINT: SBO HISTORY OF PRESENT ILLNESS: Patient is POD#5 status post exploratory laparotomy with lysis of adhesions. Patient is feeling better. She reports her pain is controlled. She is having bowel movements. She is tolerating regular diet. She is afebrile. White count has normalized from 16-8.59 hemoglobin 9.9 PHYSICAL EXAM: VITAL SIGNS: Reviewed. GENERAL: Well-developed in no acute distress. ABDOMEN: Soft. Nondistended. Incisional dressing clean dry and intact NEUROLOGIC: Alert and oriented. Cranial nerves II through XII grossly intact. ASSESSMENT: 1. Small bowel obstruction status post exploratory laparotomy with lysis of adhesions 2. History of abdominal surgeries PLAN: -Patient can be discharge from surgical standpoint -Continue regular diet -DVT prophylaxis subcu heparin and GI prophylaxis Pepcid Physician Recreation Director note has been reviewed by physician. Signing provider agrees with the documented findings, assessment, and plan of care. Objective - Vital Signs Vital signs: Vital Signs Temp 98.0 F 03/23/24 08:00 Pulse 90 03/23/24 08:00 Resp 17 03/23/24 08:00 BP 129/74 03/23/24 08:00 Pulse Ox 100 03/23/24 08:00 FiO2 Intake & Output 03/22/24 03/23/24 03/23/24 18:59 06:59 18:59 Weight 40.823 kg Other: Voiding Method Bedside Commode Toilet # Voids 3 2 # Bowel Movements 3 - Labs CBC & Chem 7: 03/23/24 04:07 03/23/24 04:07 Labs: Abnormal Lab Results - Last 24 Hours (Table) 03/23/24 03/23/24 Range/Units 04:07 04:07 RBC 3.18 L (4.10-5.20) X 10*6/uL Hgb 9.9 L (12.0-15.0) g/dL Hct 30.4 L (37.2-46.3) % Immature Gran # 0.34 H (0.00-0.04) X 10*3/uL Sodium 133 L (137-145) mmol/L Chloride 108 H (98-107) mmol/L Calcium 7.7 L (8.4-10.2) mg/dL
== END 2024-03-23 14:57 | disposition home health service (06) | DRG 335 ==
LOC: EC 17:27 → 4SSUR 20:42
PROVIDERS: ADMIT Internal Medicine Geriatric Medicine; ATTEND Internal Medicine Geriatric Medicine
PROC: 05HY33Z Insertion of Infusion Device into Upper Vein, Percutaneous Approach (ICD-10-PCS; 2024-03-18)
PROC: 3E0436Z Introduction of Nutritional Substance into Central Vein, Percutaneous Approach (ICD-10-PCS; 2024-03-18)
PROC: 0DNH0ZZ Release Cecum, Open Approach (ICD-10-PCS; principal; 2024-03-18 16:50)
DX: K56.51 Intestinal adhesions [bands], with partial obstruction (principal); E43 Unspecified severe protein-calorie malnutrition; N17.0 Acute kidney failure with tubular necrosis; E22.2 Syndrome of inappropriate secretion of antidiuretic hormone; Z68.1 Body mass index [BMI] 19.9 or less, adult; N39.0 Urinary tract infection, site not specified; G20.A1 Parkinson's disease without dyskinesia, without mention of fluctuations; I10 Essential (primary) hypertension; E78.5 Hyperlipidemia, unspecified; E86.0 Dehydration; E87.5 Hyperkalemia; E87.6 Hypokalemia; F41.9 Anxiety disorder, unspecified; K21.9 Gastro-esophageal reflux disease without esophagitis; K29.70 Gastritis, unspecified, without bleeding; B96.89 Other specified bacterial agents as the cause of diseases classified elsewhere; R73.9 Hyperglycemia, unspecified; E16.2 Hypoglycemia, unspecified; Z79.82 Long term (current) use of aspirin; Z79.899 Other long term (current) drug therapy; Z90.49 Acquired absence of other specified parts of digestive tract; Z90.710 Acquired absence of both cervix and uterus; Z88.1 Allergy status to other antibiotic agents
CPT/HCPCS: 36415; 36573; 51798; 71045; 74018; 74019; 74176; 74250; 80048; 80053; 81001; 82330; 83605; 83690; 83735; 84100; 84478; 84484; 85025; 85027; 85610; 86850; 86900; 86901; 87040; 87077; 87086; 87186; 93005; 96361; 96365; 96375; 99285